=== PATIENT | male | born 1940 | race Caucasian/White ===

== ENCOUNTER → 2017-03-06 | Outpatient (CLI) | payer MEDICARE, OTHER | LOC: SP 08:47 | PROVIDERS: ATTEND Family Medicine | DX: I65.01 Occlusion and stenosis of right vertebral artery (principal) | CPT/HCPCS: 93880 ==

== ENCOUNTER → 2017-10-01 | Outpatient (CLI) | payer MEDICARE, OTHER ==
--- NOTE | 2017-10-01 10:12 | RADIOLOGY REPORT (SQ) ---
EXAM DESCRIPTION: CT HEAD WITHOUT COMPLETED DATE/TIME: 10/01/2017 7:55 am REASON FOR STUDY: HEAD INJURY (S09.90XA) S09.90XA UNSPECIFIED INJURY OF HEAD, INITIAL ENCOUNTER COMPARISON: None. TECHNIQUE: Axial images acquired through the brain without intravenous contrast. Images reviewed wi th bone, brain and subdural windows. Images stored on PACS. All CT scanners at this facility use dose modulation, iterative reconstruction, and/or weight based d osing when appropriate to reduce radiation dose to as low as reasonably achievable (ALARA). [facility]: Dose Right [facility]: CareDose [facility]: Dose Right [facility]: Teradose 4D [facility]: Smart Yasound RADIATION DOSE: Up-to-date CT equipment and radiation dose reduction techniques were employed. CTDIv ol: 64.6 mGy. DLP: 1163 mGy-cm.mGy. LIMITATIONS: None. FINDINGS: VENTRICLES: Prominent. CEREBRUM: No masses. No hemorrhage. No midline shift. Areas of low density in the white matter mos t likely due to chronic micro-vascular ischemic change. No evidence for acute infarction. CEREBELLUM: No masses. No hemorrhage. No alteration of density. No evidence for acute infarction. EXTRAAXIAL SPACES: Age-related involutional change. No fluid collections. No masses. ORBITS AND GLOBE: No intra- or extraconal masses. Normal contour of globe without masses. CALVARIUM: No fracture. PARANASAL SINUSES: No fluid or mucosal thickening. SOFT TISSUES: No mass or hematoma. OTHER: No other significant finding. IMPRESSION: CHRONIC CHANGES OF ATROPHY AND MICROVASCULAR ISCHEMIA. NO ACUTE PROCESS. EVIDENCE OF ACUTE STROKE: NO. TECHNICAL DOCUMENTATION: JOB ID: [id number] Quality ID # [id number]: Final reports with documentation of one or more dose reduction techniques (e.g., Au tomated exposure control, adjustment of the mA and/or kV according to patient size, use of iterative reconstruction technique) 2010 [employer]- All Rights Reserved
== END ==
LOC: RAD 06:59
PROVIDERS: ATTEND Family Medicine
DX: S09.90XA Unspecified injury of head, initial encounter (principal); X58.XXXA Exposure to other specified factors, initial encounter
CPT/HCPCS: 70450

== ENCOUNTER → 2017-10-01 | Outpatient (CLI) | payer MEDICARE, OTHER ==
--- NOTE | 2017-10-01 11:26 | RADIOLOGY REPORT (SQ) ---
EXAM DESCRIPTION: C SP 4 OR 5 VIEWS COMPLETED DATE/TIME: 10/01/2017 9:18 am REASON FOR STUDY: LOW BACK PAIN,CERVICALGIA,PAIN IN THORACIC SPINE R07.81 PLEURODYNIA M54.5 LOW BA CK PAIN M54.2 CERVICALGIA COMPARISON: None. NUMBER OF VIEWS: Five views including obliques. TECHNIQUE: AP, lateral, obliques and odontoid radiographic images acquired of the cervical spine. LIMITATIONS: None. FINDINGS: MINERALIZATION: Normal. SEGMENTATION: Normal. ALIGNMENT: Reversal of the lordotic curve. VERTEBRAE: Maintained height. No fracture or worrisome bone lesion. DISCS: Multilevel disc space narrowing with osteophytes. POSTERIOR ELEMENTS: Pedicles and facets are intact. No posterior arch defects. Facet arthropathy is present. FORAMINA: Narrowed at the levels of maximal disc and facet disease. HARDWARE: None in the spine. PARASPINAL SOFT TISSUES: Normal. OTHER: No other significant finding. IMPRESSION: Cervical disc disease. No acute findings. TECHNICAL DOCUMENTATION: JOB ID: [id number] [employer]- All Rights Reserved
--- NOTE | 2017-10-01 11:28 | RADIOLOGY REPORT (SQ) ---
EXAM DESCRIPTION: T SPINE AP/LAT COMPLETED DATE/TIME: 10/01/2017 9:18 am REASON FOR STUDY: LOW BACK PAIN,CERVICALGIA,PAIN IN THORACIC SPINE R07.81 PLEURODYNIA M54.5 LOW BA CK PAIN M54.2 CERVICALGIA COMPARISON: None. NUMBER OF VIEWS: Two views. TECHNIQUE: AP and lateral radiographic images acquired of the thoracic spine. LIMITATIONS: None. FINDINGS: MINERALIZATION: Normal. ALIGNMENT: Mild scoliosis. VERTEBRAE: Mild height loss superior endplate T11 approximately 20%. DISCS: No significant loss of height or significant narrowing. No large osteophytes. HARDWARE: None in the spine. MEDIASTINUM AND SOFT TISSUES: Normal heart size and aortic contour. No soft tissue abnormality. VISUALIZED LUNG PATE: Clear. OTHER: No other significant finding. IMPRESSION: Compression fracture T11 of uncertain chronicity. TECHNICAL DOCUMENTATION: JOB ID: [id number] [employer] All Rights Reserved
--- NOTE | 2017-10-01 11:29 | RADIOLOGY REPORT (SQ) ---
EXAM DESCRIPTION: LUMBAR SPINE COMPLETE COMPLETED DATE/TIME: 10/01/2017 9:18 am REASON FOR STUDY: LOW BACK PAIN,CERVICALGIA,PAIN IN THORACIC SPINE R07.81 PLEURODYNIA M54.5 LOW BA CK PAIN M54.2 CERVICALGIA COMPARISON: MR 03/09/2014 NUMBER OF VIEWS: Five views including obliques. TECHNIQUE: AP, lateral, oblique, and sacral radiographic images acquired of the lumbar spine. LIMITATIONS: None. FINDINGS: MINERALIZATION: Normal. SEGMENTATION: Normal. No transitional anatomy. ALIGNMENT: Dextroscoliosis at L3. VERTEBRAE: Maintained height. No fracture or worrisome bone lesion. DISCS: Disc spaces are narrowed in the lumbar spine. This is most prominent at L3-4 on the left. Th ere are bridging osteophytes in prominent marginal osteophytes. POSTERIOR ELEMENTS: Pedicles and facets are intact. No pars defect or posterior arch defects. HARDWARE: None in the spine. PARASPINAL SOFT TISSUES: Normal. PELVIS: Intact as visualized. No fractures or worrisome bone lesions. SI joints intact. OTHER: No other significant finding. IMPRESSION: Scoliosis, multilevel degenerative disc disease and spondylosis. No acute abnormality i s seen. TECHNICAL DOCUMENTATION: JOB ID: [id number] [employer]- All Rights Reserved
--- NOTE | 2017-10-01 11:30 | RADIOLOGY REPORT (SQ) ---
EXAM DESCRIPTION: RIBS BILATERAL W/PA CHEST COMPLETED DATE/TIME: 10/01/2017 9:18 am REASON FOR STUDY: PLEURODYNIA R07.81 PLEURODYNIA M54.5 LOW BACK PAIN M54.2 CERVICALGIA COMPARISON: None. NUMBER OF VIEWS: 8 views TECHNIQUE: Images acquired of the right and left ribs in the area of focal concern. LIMITATIONS: None. FINDINGS: RIBS: No acute displaced fracture. No worrisome bone lesions. LUNGS: Apical pleural thickening. No contusion or pneumothorax. No pleural effusion. OTHER: No other significant finding. IMPRESSION: NO ACUTE DISPLACED RIB FRACTURE. COMMENT: SITE OF TRAUMA/COMPLAINT MARKED/STAMP COMPLETED: YES. TECHNICAL DOCUMENTATION: JOB ID: [id number] [employer]- All Rights Reserved
== END ==
LOC: OD 07:53
PROVIDERS: ATTEND Family Medicine
DX: R07.81 Pleurodynia (principal); M54.5 Low back pain; M54.2 Cervicalgia; M54.6 Pain in thoracic spine; M51.36 Other intervertebral disc degeneration, lumbar region; M48.54XD Collapsed vertebra, not elsewhere classified, thoracic region, subsequent encounter for fracture with routine healing; M50.80 Other cervical disc disorders, unspecified cervical region
CPT/HCPCS: 71111; 72050; 72070; 72110

== ENCOUNTER 2017-10-17 14:33 | Inpatient (IN) | payer MEDICARE, OTHER ==
[2017-10-17] MEDS ORDERED: DILTIAZEM HCL INJ 25 MG/5 ML VIAL ONE (15:07)
[2017-10-17] MEDS ORDERED: NORMAL SALINE 1000 ML 1,000 ML IV PRN (15:32)
[2017-10-17] MEDS ORDERED: DILTIAZEM HCL/D5W 125 ML IV PRN (15:32)
[2017-10-17] MEDS ORDERED: ASPIRIN 81 MG TABLET, CHEWABLE PO ONE (15:33)
--- NOTE | 2017-10-17 15:37 | ER Document Report ---
ED General - General Chief Complaint: Irregular Pulse Stated Complaint: IRREGULAR HEART BEAT Time Seen by Provider: 10/17/17 15:31 Mode of Arrival: Ambulatory Information source: Patient Notes: This is a 77-year-old man with a history of an "irregular heartbeat", esophageal webs (status post dilatation in the past), who presents to the emergency room with palpitations. The patient's states that she thinks the esophageal web is coming back because he has had difficulty swallowing solids and has not been able to take his pills for the last several days. TRAVEL OUTSIDE OF THE [place] IN LAST 30 DAYS: No - HPI Onset: Just prior to arrival Onset/Duration: Gradual Quality of pain: No pain Severity: None Pain Level: Denies Associated symptoms: denies: Chills, Fever Exacerbated by: Denies Relieved by: Denies Similar symptoms previously: Yes Recently seen / treated by doctor: Yes - Related Data Allergies/Adverse Reactions: cyclobenzaprine HCl [From Flexeril] Allergy (Intermediate, Verified 05/06/15 08: 05) Hallucinations oxycodone HCl [From Percocet] Allergy (Intermediate, Verified 05/06/15 08:05) Hallucinations hydrocodone bitartrate [From Vicodin] Adverse Reaction (Severe, Verified 08:05) Hallucinations Home Medications: Current Home Medications Clopidogrel Bisulfate [Clopidogrel] 75 mg PO 10/17/17 [History] Finasteride [Proscar 5 mg Tablet] 5 mg PO 10/17/17 [History] Latanoprost [Xalatan] 10/17/17 [History] Magnesium Oxide [Magnesium] 400 mg PO 10/17/17 [History] Metoprolol Succinate [Toprol Xl 50 mg Tab.sr] 50 mg PO 10/17/17 [History] Pantoprazole Sodium [Protonix] 40 mg PO 10/17/17 [History] Prazosin HCl [Minipress] 1 mg PO 10/17/17 [History] Tramadol HCl [Ultram 50 mg Tablet] 50 mg PO 10/17/17 [History] Trazodone HCl [Desyrel] 100 mg PO 10/17/17 [History] Valsartan [Diovan 160 mg Tablet] 160 mg PO 10/17/17 [History] Past Medical History - General Information source: Patient - Social History Smoking Status: Never Smoker Cigarette use (# per day): No Chew tobacco use (# tins/day): No Frequency of alcohol use: None Drug Abuse: None Lives with: Spouse/Significant other Family History: None Patient has suicidal ideation: No Patient has homicidal ideation: No - Past Medical History Cardiac Medical History: Reports: Hx Hypercholesterolemia, Hx Hypertension Denies: Hx Coronary Artery Disease, Hx Heart Attack Pulmonary Medical History: Denies: Hx Asthma, Hx Bronchitis, Hx COPD, Hx Pneumonia Neurological Medical History: Denies: Hx Cerebrovascular Accident, Hx Seizures Renal/ Medical History: Reports: Hx Benign Prostatic Hyperplasia GI Medical History: Reports: Hx Gastroesophageal Reflux Disease Musculoskeltal Medical History: Reports Hx Arthritis Past Surgical History: Reports: Hx Orthopedic Surgery - Left Achilles tendon repair. Denies: Hx Pacemaker - Immunizations Hx Diphtheria, Pertussis, Tetanus Vaccination: Yes Hx Pneumococcal Vaccination: 07/20/12 Review of Systems - Review of Systems Constitutional: denies: Chills, Fever EENT: No symptoms reported Cardiovascular: See HPI Respiratory: No symptoms reported Gastrointestinal: See HPI Genitourinary: No symptoms reported Male Genitourinary: No symptoms reported Musculoskeletal: No symptoms reported Skin: No symptoms reported Hematologic/Lymphatic: No symptoms reported Neurological/Psychological: No symptoms reported Physical Exam - Vital signs Vitals: Temp Pulse Resp BP Pulse Ox 97.6 F 167 H 18 113/96 H 100 10/17/17 14:59 10/17/17 14:59 10/17/17 14:59 10/17/17 14:59 10/17/17 14:59 Notes: Physical exam: GENERAL: 87-year-old man, alert and oriented 3, no acute distress. HEAD: Atraumatic, normocephalic. EYES: Pupils equal round and reactive to light, extraocular movements intact, sclera anicteric, conjunctiva are normal. ENT: TMs normal, nares patent, oropharynx clear without exudates. Moist mucous membranes. NECK: Normal range of motion, supple without obvious mass or JVD. LUNGS: Breath sounds clear to auscultation bilaterally and equal. No wheezes rales or rhonchi. HEART: Irregularly irregular with a heart rate of 150 ABDOMEN: Soft, normoactive bowel sounds. No tenderness to palpation. No guarding, no rebound. No masses appreciated. EXTREMITIES: Normal range of motion, no pitting or edema. No clubbing or cyanosis. NEUROLOGICAL: Cranial nerves II through XII grossly intact. Normal speech, moving all extremities. PSYCH: Normal mood, normal affect. SKIN: Warm, Dry, normal turgor, no rashes or lesions noted. Course - Re-evaluation Re-evalutation: 10/17/17 16:53 I discussed case with Dr. Humphries who was to see the patient tomorrow the patient does have a history of esophageal webs and feels like the web is been coming back. He has not taken his medicines for the last several days because he is afraid the pills will get stuck. As a result, he presented with hypomagnesemia , hyponatremia (secondary to volume depletion), atrial fibrillation with a rapid ventricular rate. Patient has been treated with IV fluids, IV rate control with metoprolol, IV magnesium. I discussed the case with Dr. Acosta who is willing to consult the patient while in the hospital. Patient will be admitted to the hospitalist service. - Vital Signs Vital signs: Temp Pulse Resp BP Pulse Ox 98.6 F 96 20 133/72 H 99 10/17/17 22:34 10/17/17 22:34 10/17/17 22:34 10/17/17 22:34 10/17/17 22:34 - Laboratory Result Diagrams: 10/17/17 15:35 10/17/17 15:35 Laboratory results interpreted by me: 10/17/17 10/17/17 15:35 15:35 WBC 17.2 H RBC 4.20 L Seg Neutrophils % 82.8 H Lymphocytes % 9.5 L Absolute Neutrophils 14.3 H Sodium 128.0 L Chloride 91 L Magnesium 1.5 L Total Bilirubin 1.4 H Direct Bilirubin 0.6 H ALT 19 L Creatine Kinase 23 L - Diagnostic Test Radiology reviewed: Image reviewed, Reports reviewed - Chest x-ray shows no infiltrates or effusions - EKG Interpretation by Me Rhythm: A.Fib - EKG shows atrial fibrillation with a ventricular rate of 154, no acute ST-T wave changes Critical Care Note - Critical Care Note Total time excluding time spent on procedures (mins): 60 Discharge - Discharge Clinical Impression: A. fib with rapid ventricular rate, Hyponatremia, Hypomagnesemia Dysphagia Qualifiers: Dysphagia type: esophageal phase Qualified Code(s): R13.10 - Dysphagia, unspecified Condition: Stable Disposition: ADMITTED INPATIENT Admitting Provider: Hospitalist - Dr Arreguin Unit Admitted: IMCU
[2017-10-17 15:50] LABS: ABSOLUTE LYMPHOCYTES (AUTO) 1.6 10^3/uL (0.5-4.7); ABSOLUTE MONOCYTES (AUTO) 1.3 10^3/uL (0.1-1.4); ABSOLUTE NEUT (AUTO) 14.3 10^3/uL (1.7-8.2); BASOPHILS % (AUTO) 0.3 % (0-2); EOSINOPHILS % (AUTO) 0.1 % (0-6); HEMATOCRIT 38.7 % (37.9-51.0); HEMOGLOBIN 13.7 g/dL (13.5-17.0); HGB HCT DIFFERENCE 2.4; LYMPHOCYTES % (AUTO) 9.5 % (13-45); MEAN CORPUSCULAR HEMOGLOBIN 32.7 pg (27.0-33.4); MEAN CORPUSCULAR HGB CONC 35.5 g/dL (32.0-36.0); MEAN CORPUSCULAR VOLUME 92 fl (80-97); MONOCYTES % (AUTO) 7.3 % (3-13); RED CELL DISTRIBUTION WIDTH 12.5 % (11.5-14.0); SEGMENTED NEUTROPHILS % (AUTO) 82.8 % (42-78); WHITE BLOOD COUNT 17.2 10^3/uL (4.0-10.5)
[2017-10-17] MEDS ORDERED: METOPROLOL TARTRATE PF/INJ 5 MG/5 ML SDV IV ONE (15:55)
[2017-10-17 16:00] LABS: PROTHROMBIN TIME 13.1 SEC (11.4-15.4)
[2017-10-17] MEDS ORDERED: METOPROLOL TARTRATE PF/INJ 5 MG/5 ML SDV IV SCH (16:00)
[2017-10-17 16:10] LABS: ALANINE AMINOTRANSFERASE 19 U/L (21-72); ALBUMIN 3.6 g/dL (3.5-5.0); ALKALINE PHOSPHATASE 111 U/L (38-126); ANION GAP 12 (5-19); ASPARTATE AMINO TRANSFERASE 23 U/L (17-59); BILIRUBIN,DIRECT 0.6 mg/dL (0.0-0.4); BILIRUBIN,TOTAL 1.4 mg/dL (0.2-1.3); BLOOD UREA NITROGEN 12 mg/dL (7-20); CALCIUM 9.8 mg/dL (8.4-10.2); CARBON DIOXIDE 25 mmol/L (22-30); CHLORIDE 91 mmol/L (98-107); CREATINE KINASE 23 U/L (55-170); CREATININE RESULT 0.78 mg/dL (0.52-1.25); GLUCOSE 107 mg/dL (75-110); MAGNESIUM 1.5 mg/dL (1.6-2.3); POTASSIUM 4.2 mmol/L (3.6-5.0); TOTAL PROTEIN 6.8 g/dL (6.3-8.2)
[2017-10-17 16:23] LABS: TROPONIN I < 0.012 ng/mL
--- NOTE | 2017-10-17 16:29 | RADIOLOGY REPORT (SQ) ---
EXAM DESCRIPTION: CHEST SINGLE VIEW COMPLETED DATE/TIME: 10/17/2017 4:16 pm REASON FOR STUDY: palpitations COMPARISON: None. EXAM PARAMETERS: NUMBER OF VIEWS: One view. TECHNIQUE: Single frontal radiographic view of the chest acquired. RADIATION DOSE: NA LIMITATIONS: None. FINDINGS: LUNGS AND PLEURA: No opacities, masses or pneumothorax. No pleural effusion. MEDIASTINUM AND HILAR STRUCTURES: No masses. Contour normal. HEART AND VASCULAR STRUCTURES: Heart normal in size. Normal vasculature. BONES: No acute findings. HARDWARE: None in the chest. OTHER: No other significant finding. IMPRESSION: NO ACUTE RADIOGRAPHIC FINDING IN THE CHEST. TECHNICAL DOCUMENTATION: JOB ID: [id number] [employer]- All Rights Reserved
[2017-10-17] MEDS ORDERED: IPRATROPIUM/ALBUTEROL 0.5-2.5 MG/3 ML AMPUL NEB PRN (17:44)
[2017-10-17] MEDS ORDERED: ONDANSETRON HCL INJ/PF 4 MG/2 ML SDV IV PRN (17:44)
[2017-10-17] MEDS ORDERED: GLUCAGON,HUMAN RECOMB 1 MG INJ SUBCUT PRN (17:44)
[2017-10-17] MEDS ORDERED: ACETAMINOPHEN 650 MG SUPP.RECT PR PRN (17:44)
[2017-10-17] MEDS ORDERED: DEXTROSE 50%-WATER 25 GM/50 ML DISP.SYRIN IV PRN ×2 (17:44)
[2017-10-17] MEDS ORDERED: DEXTROSE 40% GEL 15 GM TUBE PO PRN ×2 (17:44)
[2017-10-17] MEDS: MAGNESIUM SULFATE/D5W 1 GM/100 ML RTUPB IV SCH ×2 (17:45→20:03)
--- NOTE | 2017-10-17 18:12 | PDOC H&P ---
History of Present Illness Admission Date/PCP: 10/17/17 17:32 JEROME WICK DO History of Present Illness: ADAM ZELAYA is a 77 year old white male with a past medical history of chronic atrial fibrillation, history of esophageal web status post dilation in the past, hypertension and dyslipidemia who presents to the service with complaints of palpitations. According to the patient and his , he has a history of esophageal webs. He was due to see Dr. Humphries tomorrow afternoon for another dilation. The patient presented to his primary care physician, Dr. Wick. At that time he was found to be tachycardic. He was sent over to the hospital and found to have a rate of 154 on arrival. The patient states that he is not been able to take any of his home medications because of choking with swallowing. The patient chokes with both liquids and solids and has not been drinking very well either. In the emergency room he was found to have a low sodium of 128. He was tachycardic up to 154. He was given a dose of IV metoprolol. At home he usually takes metoprolol as for rate control. Her pulse rate came down to a range between 90-120. The patient admits to feelings of palpitations during activity. He denies any chest pain, shortness of breath , nausea or vomiting. He is anxious to have his procedure tomorrow so that he can get back on track. Past Medical History Cardiac Medical History: Reports: Hyperlipidema, Hypertension EENT Medical History: Reports: Other - Glaucoma in the right eye GI Medical History: Reports: Gastroesophageal Reflux Disease, Other - Esophageal web status post dilation Musculoskeltal Medical History: Reports: Arthritis Hematology: Denies: Anemia Past Surgical History Past Surgical History: Reports: Orthopedic Surgery - Left Achilles tendon repair. Status post bilateral ankle fractures. Social History Information Source: Patient, Relative Lives with: Spouse/Significant other Smoking Status: Former Smoker Number of Years Smokin Last Time Smoked: 1985 Frequency of Alcohol Use: Occasional - Patient consumes 1-2 wine nightly with meals. Hx Recreational Drug Use: No Drugs: None Hx Prescription Drug Abuse: No - Advance Directive Resuscitation Status: Do Not Resuscitate Family History Family History: None Parental Family History Reviewed: Yes - His mother on the operating table during a cholecystectomy. Children Family History Reviewed: Yes Sibling(s) Family History Reviewed.: Unknown - Patient is estranged from his family Medication/Allergy Home Medications: Metoprolol Succinate [Toprol Xl 50 mg Tab.sr] 50 mg PO DAILY 05/28/12 Valsartan [Diovan 160 mg Tablet] 160 mg PO DAILY 05/28/12 Esomeprazole Magnesium [Nexium] 40 mg PO DAILY 05/18/14 Prazosin HCl 1 mg PO QHS 03/09/15 Trazodone HCl [Desyrel 50 mg Tablet] 50 mg PO QHS 03/09/15 Cholestyramine (with Sugar) [Cholestyramine Packet] 4 gm PO DAILY 09/12/16 Finasteride [Proscar 5 mg Tablet] 5 mg PO DAILY 09/12/16 B1/B2/B3/B5/B6/Iron/Meth/Choln [Geritol Tonic] 15 ml PO DAILY 09/17/16 Cyanocobalamin (Vitamin B-12) [Vitamin B-12 1000 mcg Tablet] 1 tab PO DAILY Latanoprost [Xalatan 0.005% Oph Soln 2.5 ml] 1 drop OS QHS 09/17/16 Magnesium 400 mg PO BID 09/17/16 Aspirin/Dipyridamole [Aggrenox 25 mg/200 mg Capsule SA] 1 cap.sr PO Q12 cpmp.12hr 09/18/16 Docusate Sodium [Colace 100 mg Capsule] 100 mg PO BID capsule 09/18/16 Enoxaparin Sodium [Lovenox Inj 40 mg/0.4 ml Disp.syrin] 40 mg SUBCUT QAM disp.syrin 09/18/16 Meloxicam [Mobic 7.5 Mg Tablet] 7.5 mg PO DAILY PRN #30 tablet 09/18/16 Allergies/Adverse Reactions: cyclobenzaprine HCl [From Flexeril] Allergy (Intermediate, Verified 05/06/15 08: 05) Hallucinations oxycodone HCl [From Percocet] Allergy (Intermediate, Verified 05/06/15 08:05) Hallucinations hydrocodone bitartrate [From Vicodin] Adverse Reaction (Severe, Verified 08:05) Hallucinations Review of Systems Review of Systems: Review of systems is pertinent as per the HPI. 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 He has blindness of the right eye. He has had both diarrhea and constipation over the last week. He has generalized arthritis. He feels as though he has lost 30 pounds over the last 6 months and admits to a decreased appetite. He denies any abdominal pain, dizziness, lightheadedness, blood in the stool, blood in urine, coughing up blood, throwing up blood. Physical Exam Vital Signs: Temp Pulse Resp BP Pulse Ox 97.6 F 167 H 18 123/79 100 10/17/17 14:59 10/17/17 14:59 10/17/17 16:41 10/17/17 16:41 10/17/17 16:41 GENERAL: Well-developed, under nourished elderly white male resting in bed currently in no acute distress. HEENT: Normocephalic. Atraumatic. Trachea is midline. Sclera are anicteric. Moist mucous membranes. HEART: Irregular rate and rhythm. 1 out of 6 systolic ejection murmur. No gallops or rubs. LUNGS: Clear to auscultation bilaterally with equal rise and fall of the chest. ABDOMEN: Soft, nontender, nondistended with normoactive bowel sounds EXTREMETIES: No clubbing, cyanosis or edema. 2+ peripheral pulses bilaterally. Strength is 5 out of 5 in both the upper and lower extremities bilaterally. NEURO: Awake, alert and oriented 3. Ptosis of the right eye. Otherwise, cranial nerves are specifically intact. Results Impressions: Chest X-Ray 10/17/17 15:33 IMPRESSION: NO ACUTE RADIOGRAPHIC FINDING IN THE CHEST. Assessment & Plan - Diagnosis (1) Atrial fibrillation with RVR Plan: Proceed with scheduled IV metoprolol for rate control. The patient is usually rate controlled with metoprolol at home. He is also usually on valsartan for blood pressure control. Until his swallowing is evaluated by GI, we will continue with an IV regimen. Maintain heart rate less than or equal to 110 bpm. (2) Esophageal web Plan: Dr. Stoddard is aware of the patient's admission. If his heart rate is under reasonable control, he can likely proceed with dilation tomorrow. Will defer anticoagulation in anticipation of procedure tomorrow. Maintain n.p.o. status. (3) Glaucoma Qualifiers: Glaucoma type: unspecified Laterality: right Qualified Code(s): H40.9 - Unspecified glaucoma Is this a current diagnosis for this admission?: Yes Plan: Continue latanoprost. (4) Chronic back pain Plan: Patient has had multiple previous back surgeries. (5) Malnutrition Plan: Patient's BMI is 19. He has decreased appetite and estimates a 30 pound weight loss over the last 6 months. He does have some dysphasia and esophageal webs that need dilation. However, I do have concerns with such a fair amount of weight loss that the patient may have underlying malignancy. He will undergo upper endoscopy perhaps tomorrow. We will see if anything is found. Will consult dietary. (6) Dysphagia Qualifiers: Dysphagia type: esophageal phase Qualified Code(s): R13.10 - Dysphagia, unspecified Plan: Evaluation by GI is pending. If the patient continues to have dysphasia then we should consult speech therapy. N.p.o. status for now. (7) Hypertension Qualifiers: Hypertension type: essential hypertension Qualified Code(s): I10 - Essential (primary) hypertension Plan: IV metoprolol and Vasotec. (8) Hyponatremia Plan: Likely secondary to underlying dehydration from lack of p.o. intake. Continue IV fluids at 60 cc/h. (9) Hypomagnesemia Plan: Likely due to decreased p.o. Replace. - Time Time Spent: 50 to 70 Minutes Within: within 48 hours
[2017-10-17] MEDS: METOPROLOL TARTRATE PF/INJ 5 MG/5 ML SDV IV SCH (18:22)
[2017-10-17] MEDS: NORMAL SALINE 1000 ML 1,000 ML IV PRN (18:22)
[2017-10-17] MEDS: ENALAPRILAT DIHYDRATE INJ/PF 1.25 MG/1 ML SDV IV SCH (18:30)
[2017-10-18] MEDS: METOPROLOL TARTRATE PF/INJ 5 MG/5 ML SDV IV SCH ×5 (00:30→23:56)
[2017-10-18] MEDS: ENALAPRILAT DIHYDRATE INJ/PF 1.25 MG/1 ML SDV IV SCH ×3 (00:30→12:15)
[2017-10-18 05:26] LABS: ABSOLUTE BASOPHILS # (AUTO) 0.1 10^3/uL (0.0-0.2); ABSOLUTE EOSINOPHILS # (AUTO) 0.1 10^3/uL (0.0-0.6); ABSOLUTE LYMPHOCYTES (AUTO) 1.8 10^3/uL (0.5-4.7); ABSOLUTE MONOCYTES (AUTO) 1.2 10^3/uL (0.1-1.4); ABSOLUTE NEUT (AUTO) 12.5 10^3/uL (1.7-8.2); BASOPHILS % (AUTO) 0.5 % (0-2); EOSINOPHILS % (AUTO) 0.4 % (0-6); HEMATOCRIT 31.2 % (37.9-51.0); HGB HCT DIFFERENCE 2.7; LYMPHOCYTES % (AUTO) 11.3 % (13-45); MEAN CORPUSCULAR HGB CONC 36.1 g/dL (32.0-36.0); MEAN CORPUSCULAR VOLUME 91 fl (80-97); MONOCYTES % (AUTO) 7.5 % (3-13); RED BLOOD COUNT 3.42 10^6/uL (4.35-5.55); RED CELL DISTRIBUTION WIDTH 12.7 % (11.5-14.0); SEGMENTED NEUTROPHILS % (AUTO) 80.3 % (42-78); WHITE BLOOD COUNT 15.6 10^3/uL (4.0-10.5)
[2017-10-18 05:28] LABS: HEMOGLOBIN 11.3 g/dL (13.5-17.0)
[2017-10-18 05:44] LABS: ANION GAP 7 (5-19); BLOOD UREA NITROGEN 9 mg/dL (7-20); CALCIUM 8.9 mg/dL (8.4-10.2); CARBON DIOXIDE 23 mmol/L (22-30); CHLORIDE 99 mmol/L (98-107); GLUCOSE 79 mg/dL (75-110); POTASSIUM 4.7 mmol/L (3.6-5.0); SODIUM 129.3 mmol/L (137-145)
--- NOTE | 2017-10-18 07:50 | EKG REPORT ---
SEVERITY:- ABNORMAL ECG - ATRIAL FIBRILLATION WITH RAPID V-RATE ST DEPRESSION, PROBABLY RATE RELATED : Confirmed by: Ifeanyi Singletary MD 18-Oct-2017 07:50:08
[2017-10-18] MEDS: NORMAL SALINE 1000 ML 1,000 ML IV PRN ×2 (10:11→16:26)
[2017-10-18] MEDS ORDERED: NALOXONE HCL INJ/PF 0.4 MG/1 ML SDV ONE (13:51)
[2017-10-18] MEDS ORDERED: ONDANSETRON HCL INJ/PF 4 MG/2 ML SDV ONE (13:51)
[2017-10-18] MEDS ORDERED: DIPHENHYDRAMINE HCL 50 MG/ML VIAL ONE (13:51)
[2017-10-18] MEDS ORDERED: FENTANYL CITRATE INJ/PF 100 MCG/2 ML AMPUL ONE (13:52)
[2017-10-18] MEDS ORDERED: EPINEPHRINE INJ 1 MG/10 ML DISP.SYRIN ONE (13:52)
[2017-10-18] MEDS ORDERED: FLUMAZENIL INJ 0.5 MG/5 ML VIAL ONE (13:52)
[2017-10-18] MEDS ORDERED: GLUCAGON,HUMAN RECOMB 1 MG INJ ONE (13:53)
[2017-10-18] MEDS: MIDAZOLAM 2 MG/2 ML INJ ONE ×3 (14:19→14:25)
[2017-10-18] MEDS ORDERED: ONDANSETRON HCL INJ/PF 4 MG/2 ML SDV IV PRN (15:00)
[2017-10-18] MEDS ORDERED: DOCUSATE SODIUM 100 MG CAPSULE PO PRN (16:36)
--- NOTE | 2017-10-18 16:39 | PDOC PROGRESS REPORT ---
Subjective Progress Note for:: 10/18/17 Subjective:: per Dr Rosenberg summary: "ADAM ZELAYA is a 77 year old white male with a past medical history of chronic atrial fibrillation, history of esophageal web status post dilation in the past, hypertension and dyslipidemia who presents to the service with complaints of palpitations. According to the patient and his , he has a history of esophageal webs. He was due to see Dr. Humphries tomorrow afternoon for another dilation. The patient presented to his primary care physician, Dr. Wick. At that time he was found to be tachycardic. He was sent over to the hospital and found to have a rate of 154 on arrival. The patient states that he is not been able to take any of his home medications because of choking with swallowing. The patient chokes with both liquids and solids and has not been drinking very well either. In the emergency room he was found to have a low sodium of 128. He was tachycardic up to 154. He was given a dose of IV metoprolol. At home he usually takes metoprolol as for rate control. Her pulse rate came down to a range between 90-120. The patient admits to feelings of palpitations during activity. He denies any chest pain, shortness of breath, nausea or vomiting. He is anxious to have his procedure tomorrow so that he can get back on track." He converted to NSR overnight with use of IV metoprolol and overall he is feeling better. His daughter now reports that he is in a steady state of decline for the last few months with frequent falls, increasing short term memory loss, steady weight loss and she is worried there might something more sinister at work here. I asked if they had reported any of this to his PCP and apparently they have but "nothing's been found yet" and they were hoping I could offer something new. He reports no difficulty with his secretions though he continues to clear his throat and occasional cough. He is not wheezing or having difficulty breathing. He denies chest pain, palpitations, fever, chills, nausea, vomiting , headache, numbness or tingling. ROS: All systems reviewed, see above, remaining systems negative. Reason For Visit: AFIB WITH RVR; ESOPHAGEAL WEBS; DYSPHASIA Physical Exam Vital Signs: Temp Pulse Resp BP Pulse Ox 98.7 F 75 20 120/56 L 94 10/18/17 15:38 10/18/17 15:38 10/18/17 15:38 10/18/17 15:38 10/18/17 15:38 Intake & Output 10/17/17 10/18/17 10/19/17 06:59 06:59 06:59 Intake Total 782 200 Output Total 275 Balance 507 200 Weight 54.8 kg General appearance: PRESENT: no acute distress, thin, well-developed Head exam: PRESENT: atraumatic Eye exam: PRESENT: EOMI, PERRLA. ABSENT: scleral icterus Mouth exam: PRESENT: moist, neck supple Neck exam: PRESENT: full ROM. ABSENT: lymphadenopathy, tracheal deviation Respiratory exam: PRESENT: clear to auscultation cally, unlabored. ABSENT: accessory muscle use Cardiovascular exam: PRESENT: RRR. ABSENT: systolic murmur, tachycardia Pulses: PRESENT: normal radial pulses GI/Abdominal exam: PRESENT: normal bowel sounds, soft. ABSENT: tenderness Extremities exam: ABSENT: calf tenderness, pedal edema Musculoskeletal exam: PRESENT: ambulatory, full ROM Neurological exam: PRESENT: alert, awake, oriented to person, oriented to place , oriented to time, oriented to situation. ABSENT: aphasic Psychiatric exam: PRESENT: appropriate affect, normal mood Skin exam: PRESENT: warm Results Laboratory Results: 10/18/17 04:36 10/18/17 04:36 10/18/17 10/18/17 04:36 04:36 WBC 15.6 H RBC 3.42 L Hgb 11.3 L D Hct 31.2 L MCV 91 MCH 33.0 MCHC 36.1 H RDW 12.7 Plt Count 229 Seg Neutrophils % 80.3 H Lymphocytes % 11.3 L Monocytes % 7.5 Eosinophils % 0.4 Basophils % 0.5 Absolute Neutrophils 12.5 H Absolute Lymphocytes 1.8 Absolute Monocytes 1.2 Absolute Eosinophils 0.1 Absolute Basophils 0.1 Sodium 129.3 L Potassium 4.7 Chloride 99 Carbon Dioxide 23 Anion Gap 7 BUN 9 Creatinine 0.70 Est GFR ( Amer) > 60 Est GFR (Non-Af Amer) > 60 Glucose 79 Calcium 8.9 Magnesium 2.0 10/17/17 20:25 Troponin I 0.016 Impressions: Chest X-Ray 10/17/17 15:33 IMPRESSION: NO ACUTE RADIOGRAPHIC FINDING IN THE CHEST. Status: Imported from PACS Assessment & Plan - Diagnosis (1) Atrial fibrillation with RVR Is this a current diagnosis for this admission?: Yes Plan: Likely secondary to decreased oral intake including cessation of his usual medications. He converted with IV metoprolol. Will resume his usual home regimen once his esophageal dilatation is completed and is cleared for oral intake by gastroenterology. (2) Dysphagia Qualifiers: Dysphagia type: esophageal phase Qualified Code(s): R13.10 - Dysphagia, unspecified Is this a current diagnosis for this admission?: Yes Plan: Secondary to esophageal webs. Scheduled for EGD with dilatation today. (3) Hypomagnesemia Is this a current diagnosis for this admission?: Yes Plan: Replace and monitor. (4) Frequent falls Is this a current diagnosis for this admission?: Yes Plan: Unclear etiology, acutely most likely related to decreased oral intake and poor nutrition. It has been over a year since her thyroid studies have been completed and I do not see a B12 level so we will add Zosyn to finish the metabolic evaluation. His family were recommended to follow-up with his primary care provider for additional evaluation once we get his nutritional situation addressed. Start PT (5) Hyponatremia Is this a current diagnosis for this admission?: Yes Plan: The family reports this is an intermittent recurrent chronic problem for him dating back many years. Etiology is unclear. Do not think this is acutely contributing to his symptoms and is compounded by his lack of oral intake. Continue normal saline and repeat labs in the morning. Defer to his PCP for ongoing outpatient evaluation. - Time Time Spent with patient: 25-34 minutes Medications reviewed and adjusted accordingly: Yes
--- NOTE | 2017-10-18 16:50 | Operative Report ---
Operative Report DATE OF SURGERY: 10/18/17 Operative Report: The risks benefits and alternatives of the procedure explained to the patient in detail and informed consent is obtained.A GIF Olympus video scope was inserted into the patient's mouth and hypopharynx ,the esophagus is identified intubated and insufflated, the scope was then advanced through the esophagus stomach and duodenum, retroflexion maneuver is done, the esophagus stomach and first and second portions of the duodenum examined PREOPERATIVE DIAGNOSIS: Dysphagia, previous history of esophageal webs POSTOPERATIVE DIAGNOSIS: There appears to be a mass lesion in the midesophagus status post biopsy. Scope was able to pass no complete obstruction is noted. Biopsies obtained. Gastritis status post biopsy OPERATION: EGD with biopsy SURGEON: ROB HILLS ANESTHESIA: Moderate Sedation - 5 mg of Versed, 50 mcg of fentanyl. Conscious sedation monitoring time 30 minutes. TISSUE REMOVED OR ALTERED: As noted above. COMPLICATIONS: None. ESTIMATED BLOOD LOSS: None. INTRAOPERATIVE FINDINGS: As described above. PROCEDURE: Patient tolerated procedure well. No immediate postprocedure complications are noted. Patient sent back to his room in reasonable condition. Keep on clears. Do not advance diet. We will wait on biopsies. If malignancy will get him on consultation. Question if he will need stent placement/possible PEG tube placement which needs to be done at a tertiary institution. We will get chest CT scan.
--- NOTE | 2017-10-18 16:56 | PDOC CONSULTATION ---
Consultation Consult Date: 10/17/17 Attending physician:: ROB HILLS Consult reason:: Dysphagia History of Present Illness Admission Date/PCP: 10/17/17 17:32 JEROME MCKEON DO History of Present Illness: Patient was seen approximately 2 years ago. Patient had previous EGD done. He does have a history of esophageal webs. Was speaking to the and the daughter it appears that patient started having significant problems with swallowing is accompanied by weight loss for the past several months. He had communicated to the that he wanted to wait before being evaluated. Patient has had a chronic cough. He sustained significant weight loss. Several days ago he stopped all of his oral medications because he could no longer swallow. notes that perhaps 6 months ago he had started to have progressive solid food dysphagia which has since been progressing to liquids and then pills. He is also sustained weight loss as noted. He was seen at his primary care office yesterday. He was found to be in uncontrolled A. fib he was sent to the emergency room he was admitted he has been rate controlled. He needs to have an upper endoscopy done. Past Medical History Cardiac Medical History: Reports: Hyperlipidema, Hypertension Denies: Coronary Artery Disease, Myocardial Infarction Pulmonary Medical History: Denies: Asthma, Bronchitis, Chronic Obstructive Pulmonary Disease (COPD), Pneumonia EENT Medical History: Reports: Other - Glaucoma in the right eye Neurological Medical History: Denies: Seizures GI Medical History: Reports: Gastroesophageal Reflux Disease, Other - Esophageal web status post dilation Musculoskeltal Medical History: Reports: Arthritis Hematology: Reports: Other - Glaucoma in the right eye Denies: Anemia Past Surgical History Past Surgical History: Reports: Orthopedic Surgery - Left Achilles tendon repair Denies: Pacemaker Social History Lives with: Spouse/Significant other Smoking Status: Never Smoker Number of Years Smokin Last Time Smoked: 1985 Frequency of Alcohol Use: Occasional Hx Recreational Drug Use: No Drugs: None Hx Prescription Drug Abuse: No - Advance Directive Resuscitation Status: Do Not Resuscitate Family History Family History: None Parental Family History Reviewed: Yes Children Family History Reviewed: Unknown Sibling(s) Family History Reviewed.: Unknown Medication/Allergy Home Medications: Aspirin [Aspirin EC] 81 mg PO DAILY 10/18/17 Clopidogrel Bisulfate [Plavix 75 mg Tablet] 75 mg PO DAILY 10/18/17 Cyanocobalamin (Vitamin B-12) [Vitamin B-12] 1,000 mcg PO DAILY 10/18/17 Docusate Sodium [Colace 100 mg Capsule] 100 mg PO DAILYP PRN 10/18/17 Finasteride [Proscar 5 mg Tablet] 5 mg PO DAILY 10/18/17 Magnesium Oxide [Mag-Ox 400 mg Tablet] 800 mg PO DAILY 10/18/17 Metoprolol Succinate [Toprol Xl 50 mg Tab.sr] 50 mg PO DAILY 10/18/17 Pantoprazole Sodium [Protonix] 40 mg PO DAILY 10/18/17 Prazosin HCl [Minipress] 1 mg PO QHS 10/18/17 Tramadol HCl [Ultram 50 mg Tablet] 50 mg PO DAILY 10/18/17 Trazodone HCl [Desyrel] 100 mg PO QHS 10/18/17 Valsartan [Diovan 160 mg Tablet] 160 mg PO DAILY 10/18/17 Allergies/Adverse Reactions: cyclobenzaprine HCl [From Flexeril] Allergy (Intermediate, Verified 05/06/15 08: 05) Hallucinations oxycodone HCl [From Percocet] Allergy (Intermediate, Verified 05/06/15 08:05) Hallucinations hydrocodone bitartrate [From Vicodin] Adverse Reaction (Severe, Verified 08:05) Hallucinations Review of Systems Constitutional: PRESENT: weakness, weight loss Eyes: ABSENT: visual disturbances Ears: ABSENT: hearing changes Nose, Mouth, and Throat: ABSENT: mouth pain, sore throat Cardiovascular: PRESENT: palpitations. ABSENT: chest pain, orthropnea Respiratory: PRESENT: dyspnea. ABSENT: hemoptysis Gastrointestinal: PRESENT: dysphagia, nausea, vomiting. ABSENT: diarrhea, hematemesis Genitourinary: ABSENT: dysuria, hematuria Musculoskeletal: ABSENT: deformity, joint swelling Integumentary: ABSENT: lesions Neurological: ABSENT: syncope, tingling, tremor(s), vertigo Endocrine: ABSENT: polydipsia, polyphagia, polyuria Hematologic/Lymphatic: ABSENT: easy bruising Physical Exam Vital Signs: Temp Pulse Resp BP Pulse Ox 98.7 F 75 20 120/56 L 94 10/18/17 15:38 10/18/17 15:38 10/18/17 15:38 10/18/17 15:38 10/18/17 15:38 Intake & Output 11/29/17 11/30/17 12/01/17 06:59 06:59 06:59 Intake Total 782 200 Output Total 275 Balance 507 200 Weight 54.8 kg General appearance: PRESENT: no acute distress, cooperative, thin Head exam: PRESENT: atraumatic, normocephalic Eye exam: PRESENT: EOMI, PERRLA. ABSENT: periorbital swelling, scleral icterus Mouth exam: PRESENT: moist, neck supple Throat exam: ABSENT: tonsillar exudate, tonsillogmegaly Neck exam: ABSENT: meningismus, tenderness, thyromegaly Respiratory exam: PRESENT: symmetrical, unlabored. ABSENT: tachypnea, wheezes Cardiovascular exam: PRESENT: RRR, +S1, +S2 GI/Abdominal exam: PRESENT: soft. ABSENT: rebound, rigid, tenderness Extremities exam: ABSENT: joint swelling Musculoskeletal exam: PRESENT: full ROM Neurological exam: PRESENT: oriented to time, oriented to situation, reflexes normal, CN II-XII grossly intact Focused psych exam: PRESENT: restlessness Skin exam: PRESENT: normal color. ABSENT: mottled, pallor, petechiae, urticaria , vesicles Results Laboratory Results: 10/18/17 04:36 10/18/17 04:36 10/18/17 10/18/17 04:36 04:36 WBC 15.6 H RBC 3.42 L Hgb 11.3 L D Hct 31.2 L MCV 91 MCH 33.0 MCHC 36.1 H RDW 12.7 Plt Count 229 Seg Neutrophils % 80.3 H Lymphocytes % 11.3 L Monocytes % 7.5 Eosinophils % 0.4 Basophils % 0.5 Absolute Neutrophils 12.5 H Absolute Lymphocytes 1.8 Absolute Monocytes 1.2 Absolute Eosinophils 0.1 Absolute Basophils 0.1 Sodium 129.3 L Potassium 4.7 Chloride 99 Carbon Dioxide 23 Anion Gap 7 BUN 9 Creatinine 0.70 Est GFR ( Amer) > 60 Est GFR (Non-Af Amer) > 60 Glucose 79 Calcium 8.9 Magnesium 2.0 10/17/17 20:25 Troponin I 0.016 Impressions: Chest X-Ray 10/17/17 15:33 IMPRESSION: NO ACUTE RADIOGRAPHIC FINDING IN THE CHEST. Assessment & Plan - Diagnosis (1) Dysphagia Plan: Will need admission for rate control for his A. fib Once that has been completed he can undergo upper endoscopy. I am concerned that given his weight loss that he may potentially have a new finding in his esophagus. He has had a chronic cough. He will need an EGD., Risk benefits alternatives of the procedure which led to the patient detail informed consent is obtained further recommendations will be based upon the findings. - Time Time Spent: 50 to 70 Minutes
[2017-10-18] MEDS ORDERED: ENALAPRILAT DIHYDRATE INJ/PF 1.25 MG/1 ML SDV IV PRN (17:07)
--- NOTE | 2017-10-18 21:30 | RADIOLOGY REPORT (SQ) ---
EXAM DESCRIPTION: CT CHEST WITH COMPLETED DATE/TIME: 10/18/2017 9:10 pm REASON FOR STUDY: ESOPHAGEAL MASS COMPARISON: None. TECHNIQUE: CT scan of the chest performed using helical scanning technique with dynamic intravenous contrast injection. Images reviewed with lung, soft tissue and bone windows. Reconstructed coronal and sagittal MPR images reviewed. All images stored on PACS. All CT scanners at this facility use dose modulation, iterative reconstruction, and/or weight based d osing when appropriate to reduce radiation dose to as low as reasonably achievable (ALARA). [facility]: Dose Right [facility]: CareDose [facility]: Dose Right [facility]: Teradose 4D [facility]: [employer] CONTRAST TYPE AND DOSE: 80 Isovue 370- low osmolar. RENAL FUNCTION: GFR > 60. RADIATION DOSE: . LIMITATIONS: None. FINDINGS: LUNGS AND PLEURA: No opacities, nodules, masses. No pneumothorax. No effusions. HILAR AND MEDIASTINAL STRUCTURES: No identified masses or abnormal nodes. HEART AND VASCULAR STRUCTURES: No aneurysm or dissection. No central pulmonary emboli. No pericardi al effusion. HARDWARE: None in the chest. UPPER ABDOMEN: See separate report of the CT of the abdomen. THYROID AND OTHER SOFT TISSUES: No masses. No adenopathy. BONES: T11 compression fracture. Age indeterminate. There is not appear to be pathologic. OTHER: Extensive soft tissue masses seen in the distal 2/3 of the esophagus. IMPRESSION: T11 compression fracture of undetermined chronicity. Extensive soft tissue mass in the distal 2/3 of the esophagus. No adenopathy or parenchymal masses. TECHNICAL DOCUMENTATION: JOB ID: [id number] Quality ID # [id number]: Final reports with documentation of one or more dose reduction techniques (e.g., Au tomated exposure control, adjustment of the mA and/or kV according to patient size, use of iterative reconstruction technique) 2010 [employer]- All Rights Reserved
--- NOTE | 2017-10-18 21:57 | RADIOLOGY REPORT (SQ) ---
EXAM DESCRIPTION: CT ABD/PELVIS WITH IV ORAL COMPLETED DATE/TIME: 10/18/2017 9:10 pm REASON FOR STUDY: ESOPHAGEAL MASS COMPARISON: None. TECHNIQUE: CT scan of the abdomen and pelvis performed using helical scanning technique with dynamic intravenous contrast injection. No oral contrast. Images reviewed with lung, soft tissue, and bone windows. Reconstructed coronal and sagittal MPR images reviewed. Delayed images for evaluation of the urinary system also acquired. All images stored on PACS. All CT scanners at this facility use dose modulation, iterative reconstruction, and/or weight based d osing when appropriate to reduce radiation dose to as low as reasonably achievable (ALARA). [facility]: Dose Right [facility]: CareDose [facility]: Dose Right [facility]: Teradose 4D [facility]: [employer] CONTRAST TYPE AND DOSE: contrast/concentration: Isovue 370.00 mg/ml; Total Contrast Delivered: 80.0 ml; Total Saline Delivered: 45.0 ml RENAL FUNCTION: GFR > 60. RADIATION DOSE: . LIMITATIONS: None. FINDINGS: LOWER CHEST: See separate report of the CT of the chest. LIVER: Normal size. No masses. No dilated ducts. SPLEEN: Normal size. No focal lesions. PANCREAS: No masses. No significant calcifications. No adjacent inflammation or peripancreatic fluid collections. Pancreatic duct not dilated. GALLBLADDER: No identified stones by CT criteria. No inflammatory changes to suggest cholecystitis. ADRENAL GLANDS: No significant masses or asymmetry. RIGHT KIDNEY AND URETER: No solid masses. No significant calcifications. No hydronephrosis or hyd roureter. LEFT KIDNEY AND URETER: No solid masses. No significant calcifications. No hydronephrosis or hydr oureter. AORTA AND VESSELS: No aneurysm. No dissection. Renal arteries, SMA, celiac without stenosis. RETROPERITONEUM: No retroperitoneal adenopathy, hemorrhage or masses. BOWEL AND PERITONEAL CAVITY: No masses or inflammatory changes. No free fluid or peritoneal masses. APPENDIX: Not visualized. PELVIS: No mass. No free fluid. Normal bladder. ABDOMINAL WALL: No masses. No hernias. BONES: Degenerative disc disease L2-3, L3-4, L4-5, L5-S1. OTHER: No other significant finding. IMPRESSION: No metastatic lesions identified. TECHNICAL DOCUMENTATION: JOB ID: [id number] Quality ID # [id number]: Final reports with documentation of one or more dose reduction techniques (e.g., Au tomated exposure control, adjustment of the mA and/or kV according to patient size, use of iterative reconstruction technique) 2010 [employer]- All Rights Reserved
[2017-10-18] MEDS ORDERED: TRAZODONE HCL 50 MG TABLET PO SCH (22:00)
[2017-10-19] MEDS: METOPROLOL TARTRATE PF/INJ 5 MG/5 ML SDV IV SCH ×2 (05:32→12:17)
[2017-10-19] MEDS: LANSOPRAZOLE 30 MG TAB.RAP.DR PO SCH (05:32)
[2017-10-19 05:53] LABS: ANION GAP 8 (5-19); BLOOD UREA NITROGEN 9 mg/dL (7-20); CALCIUM 8.5 mg/dL (8.4-10.2); CARBON DIOXIDE 18 mmol/L (22-30); CHLORIDE 101 mmol/L (98-107); CREATININE RESULT 0.65 mg/dL (0.52-1.25); GLUCOSE 64 mg/dL (75-110); POTASSIUM 3.8 mmol/L (3.6-5.0)
[2017-10-19] MEDS: NORMAL SALINE 1000 ML 1,000 ML IV PRN (09:12)
[2017-10-19] MEDS ORDERED: VALSARTAN 160 MG TABLET PO SCH (10:00)
[2017-10-19] MEDS ORDERED: FINASTERIDE 5 MG TABLET PO SCH (10:00)
[2017-10-19] MEDS ORDERED: ASPIRIN 81 MG TABLET, ENT COATED PO SCH (10:00)
[2017-10-19] MEDS ORDERED: METOPROLOL SUCCINATE 50 MG TAB.SR.24H PO SCH (10:00)
[2017-10-19] MEDS ORDERED: CLOPIDOGREL BISULFATE 75 MG TABLET PO SCH (10:00)
--- NOTE | 2017-10-19 12:17 | PDOC PROGRESS REPORT ---
Subjective Progress Note for:: 10/19/17 Subjective:: Patient underwent EGD yesterday. Esophageal mass noted status post biopsy final pathology is still pending. Patient had a CT scan overnight including the chest, abdomen and pelvis no metastases was seen but it was reported the distal esophagus appeared to be thickened. It may be consistent with esophageal cancer. The question now is see if he is not able to swallow any of his pills he will probably need transfer to a tertiary institution. Question stent placement, and possible percutaneous endoscopic gastrostomy tube placement at the same time. We will need hematology oncology consult. Physical Exam Vital Signs: Temp Pulse Resp BP Pulse Ox 97.9 F 94 14 129/62 H 97 10/19/17 07:44 10/19/17 10:54 10/19/17 10:54 10/19/17 07:44 10/19/17 10:54 Intake & Output 10/18/17 10/19/17 10/20/17 06:59 06:59 06:59 Intake Total 782 1861 Output Total 275 125 Balance 507 1736 Weight 54.8 kg 55.8 kg General appearance: PRESENT: no acute distress, thin Head exam: PRESENT: atraumatic, normocephalic Eye exam: PRESENT: EOMI, PERRLA. ABSENT: nystagmus, scleral icterus Throat exam: ABSENT: tonsillar exudate, tonsillogmegaly Neck exam: ABSENT: meningismus, tenderness, thyromegaly Respiratory exam: PRESENT: symmetrical, unlabored. ABSENT: tachypnea, wheezes Cardiovascular exam: PRESENT: RRR, +S1, +S2 GI/Abdominal exam: PRESENT: soft. ABSENT: rebound, rigid, tenderness Musculoskeletal exam: PRESENT: full ROM Neurological exam: PRESENT: oriented to time, oriented to situation, CN II-XII grossly intact Skin exam: PRESENT: normal color. ABSENT: mottled, pallor, urticaria Results Laboratory Results: 10/18/17 04:36 10/19/17 04:33 10/19/17 10/19/17 04:33 04:33 Sodium 127.0 L Potassium 3.8 Chloride 101 Carbon Dioxide 18 L Anion Gap 8 BUN 9 Creatinine 0.65 Est GFR ( Amer) > 60 Est GFR (Non-Af Amer) > 60 Glucose 64 L Calcium 8.5 Vitamin B12 > 1000.0 H TSH 1.54 10/17/17 10/19/17 20:25 04:33 Troponin I 0.016 < 0.012 Impressions: Chest X-Ray 10/17/17 15:33 IMPRESSION: NO ACUTE RADIOGRAPHIC FINDING IN THE CHEST. Abdomen/Pelvis CT 10/18/17 00:00 IMPRESSION: No metastatic lesions identified. Chest CT 10/18/17 00:00 IMPRESSION: T11 compression fracture of undetermined chronicity. Extensive soft tissue mass in the distal 2/3 of the esophagus. No adenopathy or parenchymal masses. Assessment & Plan - Diagnosis (2) Dysphagia Qualifiers: Dysphagia type: esophageal phase Qualified Code(s): R13.10 - Dysphagia, unspecified Is this a current diagnosis for this admission?: Yes Plan: Question squamous cell versus adenocarcinoma. May need esophageal stent placement with then possible percutaneous endoscopic gastrostomy tube placement. We will probably need transfer to tertiary institution. Get hematology/oncology consult. We will wait on biopsies. - Time Time Spent with patient: 25-34 minutes
--- NOTE | 2017-10-19 13:38 | PDOC PROGRESS REPORT ---
Subjective Progress Note for:: 10/19/17 Reason For Visit: AFIB WITH RVR Physical Exam Vital Signs: Temp Pulse Resp BP Pulse Ox 97.9 F 79 16 129/62 H 100 10/19/17 07:44 10/19/17 07:44 10/19/17 07:44 10/19/17 07:44 10/19/17 07:44 Intake & Output 10/18/17 10/19/17 10/20/17 06:59 06:59 06:59 Intake Total 782 1861 Output Total 275 125 Balance 507 1736 Weight 54.8 kg 55.8 kg GENERAL: Well-developed, under nourished elderly white male resting in bed currently in no acute distress. HEART: Irregular rate and rhythm. 1 out of 6 systolic ejection murmur. No gallops or rubs. LUNGS: Clear to auscultation bilaterally with equal rise and fall of the chest. ABDOMEN: Soft, nontender, nondistended with normoactive bowel sounds EXTREMETIES: No clubbing, cyanosis or edema. 2+ peripheral pulses bilaterally. NEURO: Awake, alert and oriented 3. Ptosis of the right eye. Otherwise, cranial nerves are specifically intact. Results Laboratory Results: 10/18/17 04:36 10/19/17 04:33 10/19/17 10/19/17 04:33 04:33 Sodium 127.0 L Potassium 3.8 Chloride 101 Carbon Dioxide 18 L Anion Gap 8 BUN 9 Creatinine 0.65 Est GFR ( Amer) > 60 Est GFR (Non-Af Amer) > 60 Glucose 64 L Calcium 8.5 Vitamin B12 > 1000.0 H TSH 1.54 10/17/17 10/19/17 20:25 04:33 Troponin I 0.016 < 0.012 Impressions: Chest X-Ray 10/17/17 15:33 IMPRESSION: NO ACUTE RADIOGRAPHIC FINDING IN THE CHEST. Abdomen/Pelvis CT 10/18/17 00:00 IMPRESSION: No metastatic lesions identified. Chest CT 10/18/17 00:00 IMPRESSION: T11 compression fracture of undetermined chronicity. Extensive soft tissue mass in the distal 2/3 of the esophagus. No adenopathy or parenchymal masses. Assessment & Plan - Diagnosis (1) Atrial fibrillation with RVR Is this a current diagnosis for this admission?: Yes Plan: Converted to sinus rhythm. Change to p.o. metoprolol. (2) Esophageal web Plan: No web identified. However esophageal mass was identified and biopsies are pending. (3) Glaucoma Qualifiers: Glaucoma type: unspecified Laterality: right Qualified Code(s): H40.9 - Unspecified glaucoma Is this a current diagnosis for this admission?: Yes Plan: Continue latanoprost. (4) Chronic back pain Plan: Patient has had multiple previous back surgeries. (5) Malnutrition Plan: Patient's BMI is 19. He has decreased appetite and estimates a 30 pound weight loss over the last 6 months. Concern for underlying malignancy as the etiology for this. (6) Dysphagia Qualifiers: Dysphagia type: esophageal phase Qualified Code(s): R13.10 - Dysphagia, unspecified Is this a current diagnosis for this admission?: Yes Plan: Consult speech therapy. We will go ahead and change him to p.o. and allow his meds to be crushed to see how he is swallowing. He seems to be tolerating liquids much better. Advance according to speech recommendations. (7) Hypertension Qualifiers: Hypertension type: essential hypertension Qualified Code(s): I10 - Essential (primary) hypertension Plan: Continue on metoprolol. (8) Hyponatremia Is this a current diagnosis for this admission?: Yes Plan: Likely secondary to underlying dehydration from lack of p.o. 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 (9) Hypomagnesemia Is this a current diagnosis for this admission?: Yes Plan: Resolved. - Time Time Spent with patient: 15-24 minutes
[2017-10-19] MEDS ORDERED: ACETAMINOPHEN 325 MG TABLET PO PRN (13:44)
[2017-10-19] MEDS ORDERED: CLOPIDOGREL BISULFATE 75 MG TABLET PO ONE (15:00)
[2017-10-19] MEDS ORDERED: FINASTERIDE 5 MG TABLET PO ONE (15:00)
[2017-10-19] MEDS: LORAZEPAM INJ 2 MG/1 ML VIAL IV PRN (21:57)
[2017-10-19] MEDS: METOPROLOL TARTRATE 25 MG TABLET PO SCH (21:57)
[2017-10-20] MEDS: NORMAL SALINE 1000 ML 1,000 ML IV PRN ×2 (01:34→18:10)
[2017-10-20] MEDS: LANSOPRAZOLE 30 MG TAB.RAP.DR PO SCH (05:24)
[2017-10-20] MEDS: CLOPIDOGREL BISULFATE 75 MG TABLET PO SCH (10:14)
[2017-10-20] MEDS: METOPROLOL TARTRATE 25 MG TABLET PO SCH ×2 (10:14→21:52)
[2017-10-20] MEDS: FINASTERIDE 5 MG TABLET PO SCH (10:14)
[2017-10-20] MEDS: ASPIRIN 81 MG TABLET, CHEWABLE PO SCH (10:14)
--- NOTE | 2017-10-20 15:23 | PDOC PROGRESS REPORT ---
Subjective Progress Note for:: 10/20/17 Subjective:: Pt states that he is doing ok. Nursing states that pt's was concerned about pt going home. Family states that they would like for pt to go to rehab before going home. Reason For Visit: AFIB WITH RVR Physical Exam Vital Signs: Temp Pulse Resp BP Pulse Ox 99.3 F 73 16 130/67 H 97 10/20/17 11:15 10/20/17 14:00 10/20/17 11:15 10/20/17 11:15 10/20/17 11:15 Intake & Output 10/19/17 10/20/17 10/21/17 06:59 06:59 06:59 Intake Total 1861 1723 Output Total 125 1320 Balance 1736 403 Weight 55.8 kg 57.5 kg General appearance: PRESENT: no acute distress, thin Head exam: PRESENT: atraumatic, normocephalic Eye exam: PRESENT: conjunctiva pink, EOMI, PERRLA. ABSENT: scleral icterus Ear exam: PRESENT: normal external ear exam Mouth exam: PRESENT: moist, tongue midline Neck exam: ABSENT: carotid bruit, JVD, lymphadenopathy, thyromegaly Respiratory exam: PRESENT: clear to auscultation cally. ABSENT: rales, rhonchi, wheezes Cardiovascular exam: PRESENT: RRR. ABSENT: diastolic murmur, rubs, systolic murmur Pulses: PRESENT: normal dorsalis pedis pul Vascular exam: PRESENT: normal capillary refill GI/Abdominal exam: PRESENT: normal bowel sounds, soft. ABSENT: distended, guarding, mass, organolmegaly, rebound, tenderness Rectal exam: PRESENT: deferred Extremities exam: PRESENT: full ROM. ABSENT: calf tenderness, clubbing, pedal edema Neurological exam: PRESENT: alert, awake, oriented to person, oriented to place , oriented to time, oriented to situation, CN II-XII grossly intact. ABSENT: motor sensory deficit Psychiatric exam: PRESENT: appropriate affect, normal mood. ABSENT: homicidal ideation, suicidal ideation Skin exam: PRESENT: dry, intact, warm. ABSENT: cyanosis, rash Results Laboratory Results: 10/18/17 04:36 10/19/17 04:33 10/17/17 10/19/17 20:25 04:33 Troponin I 0.016 < 0.012 Impressions: Chest X-Ray 10/17/17 15:33 IMPRESSION: NO ACUTE RADIOGRAPHIC FINDING IN THE CHEST. Abdomen/Pelvis CT 10/18/17 00:00 IMPRESSION: No metastatic lesions identified. Chest CT 10/18/17 00:00 IMPRESSION: T11 compression fracture of undetermined chronicity. Extensive soft tissue mass in the distal 2/3 of the esophagus. No adenopathy or parenchymal masses. Assessment & Plan - Diagnosis (1) Atrial fibrillation with RVR Is this a current diagnosis for this admission?: Yes Plan: Resolved. Will continue current medications. Will increase Metoprolol to 25 mg PO qdaily. (2) Dysphagia Qualifiers: Dysphagia type: esophageal phase Qualified Code(s): R13.10 - Dysphagia, unspecified Is this a current diagnosis for this admission?: Yes Plan: Esophageal Mass: Pt to follow up with GI as outpatient. (3) Malnutrition Qualifiers: Malnutrition type: protein-calorie malnutrition Is this a current diagnosis for this admission?: Yes Plan: Moderate Protein Caloric malnutrition: Will encourage good PO intake. (4) Hypernatremia Is this a current diagnosis for this admission?: Yes Plan: Will place on Sodium Replacement. - Time Time Spent with patient: 15-24 minutes
[2017-10-20] MEDS ORDERED: METOPROLOL TARTRATE 25 MG TABLET PO SCH (18:00)
[2017-10-20] MEDS: SODIUM CHLORIDE 1 GM TABLET PO SCH (18:10)
--- NOTE | 2017-10-20 20:14 | PDOC PROGRESS REPORT ---
Subjective Progress Note for:: 10/20/17 Subjective:: Results of biopsy is still pending patient is anxious to be discharged the suspicion her is for esophageal cancer patient will need to have Heme Onc consult and possibly be transfered for possible stent placement along with alternatives means of nutrition, if indeed the biopsies are positive eventually might have complete closure of the esophagus Reason For Visit: AFIB WITH RVR Physical Exam Vital Signs: Temp Pulse Resp BP Pulse Ox 99.6 F 96 16 126/65 H 96 10/20/17 16:54 10/20/17 19:00 10/20/17 16:54 10/20/17 16:54 10/20/17 16:54 Intake & Output 10/19/17 10/20/17 10/21/17 06:59 06:59 06:59 Intake Total 1861 1723 1613 Output Total 125 1320 860 Balance 1736 403 753 Weight 55.8 kg 57.5 kg General appearance: PRESENT: no acute distress, well-developed, well-nourished Head exam: PRESENT: atraumatic, normocephalic Eye exam: PRESENT: conjunctiva pink, EOMI, PERRLA. ABSENT: scleral icterus Ear exam: PRESENT: normal external ear exam Mouth exam: PRESENT: moist, tongue midline Neck exam: ABSENT: carotid bruit, JVD, lymphadenopathy, thyromegaly Respiratory exam: PRESENT: clear to auscultation cally. ABSENT: rales, rhonchi, wheezes Cardiovascular exam: PRESENT: RRR. ABSENT: diastolic murmur, rubs, systolic murmur Pulses: PRESENT: normal dorsalis pedis pul Vascular exam: PRESENT: normal capillary refill GI/Abdominal exam: PRESENT: normal bowel sounds, soft. ABSENT: distended, guarding, mass, organolmegaly, rebound, tenderness Rectal exam: PRESENT: deferred Extremities exam: PRESENT: full ROM. ABSENT: calf tenderness, clubbing, pedal edema Neurological exam: PRESENT: alert, awake, oriented to person, oriented to place , oriented to time, oriented to situation, CN II-XII grossly intact. ABSENT: motor sensory deficit Psychiatric exam: PRESENT: appropriate affect, normal mood. ABSENT: homicidal ideation, suicidal ideation Skin exam: PRESENT: dry, intact, warm. ABSENT: cyanosis, rash Results Laboratory Results: 10/18/17 04:36 10/17/17 10/19/17 20:25 04:33 Troponin I 0.016 < 0.012 Impressions: Chest X-Ray 10/17/17 15:33 IMPRESSION: NO ACUTE RADIOGRAPHIC FINDING IN THE CHEST. Abdomen/Pelvis CT 10/18/17 00:00 IMPRESSION: No metastatic lesions identified. Chest CT 10/18/17 00:00 IMPRESSION: T11 compression fracture of undetermined chronicity. Extensive soft tissue mass in the distal 2/3 of the esophagus. No adenopathy or parenchymal masses. 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
[2017-10-20 20:27] LABS: BLOOD UREA NITROGEN 4 mg/dL (7-20); CALCIUM 8.4 mg/dL (8.4-10.2); CREATININE RESULT 0.57 mg/dL (0.52-1.25); GLUCOSE 109 mg/dL (75-110)
[2017-10-20 20:28] LABS: ANION GAP 7 (5-19); CARBON DIOXIDE 23 mmol/L (22-30); CHLORIDE 99 mmol/L (98-107); MAGNESIUM 1.4 mg/dL (1.6-2.3); POTASSIUM 3.2 mmol/L (3.6-5.0); SODIUM 129.4 mmol/L (137-145)
[2017-10-20] MEDS: LORAZEPAM INJ 2 MG/1 ML VIAL IV PRN (22:35)
[2017-10-21] MEDS: LANSOPRAZOLE 30 MG TAB.RAP.DR PO SCH (05:38)
[2017-10-21 07:26] LABS: ANION GAP 6 (5-19); BLOOD UREA NITROGEN 4 mg/dL (7-20); CALCIUM 8.4 mg/dL (8.4-10.2); CARBON DIOXIDE 24 mmol/L (22-30); CHLORIDE 98 mmol/L (98-107); CREATININE RESULT 0.58 mg/dL (0.52-1.25); GLUCOSE 77 mg/dL (75-110); SODIUM 127.6 mmol/L (137-145)
[2017-10-21 07:47] LABS: POTASSIUM 2.9 mmol/L (3.6-5.0)
[2017-10-21] MEDS: SODIUM CHLORIDE 1 GM TABLET PO SCH ×2 (10:21→17:38)
[2017-10-21] MEDS: FINASTERIDE 5 MG TABLET PO SCH (10:21)
[2017-10-21] MEDS: ASPIRIN 81 MG TABLET, CHEWABLE PO SCH (10:21)
[2017-10-21] MEDS: METOPROLOL TARTRATE 25 MG TABLET PO SCH ×2 (10:22→21:43)
[2017-10-21] MEDS: CLOPIDOGREL BISULFATE 75 MG TABLET PO SCH (10:22)
[2017-10-21] MEDS ORDERED: POTASSIUM CHLORIDE 20 MEQ/15 ML UDCUP PO ONE ×2 (10:52→14:15)
--- NOTE | 2017-10-21 11:04 | PDOC PROGRESS REPORT ---
Subjective Progress Note for:: 10/21/17 Subjective:: Pt states that he is doing ok. Reason For Visit: AFIB WITH RVR Physical Exam Vital Signs: Temp Pulse Resp BP Pulse Ox 98.8 F 91 19 123/71 99 10/21/17 08:25 10/21/17 08:25 10/21/17 08:25 10/21/17 08:25 10/21/17 08:25 Intake & Output 10/20/17 10/21/17 10/22/17 06:59 06:59 06:59 Intake Total 1723 2202 Output Total 1320 1760 Balance 403 442 Weight 57.5 kg 55.7 kg General appearance: PRESENT: no acute distress, thin Head exam: PRESENT: atraumatic, normocephalic Eye exam: PRESENT: conjunctiva pink, EOMI, PERRLA. ABSENT: scleral icterus Ear exam: PRESENT: normal external ear exam Mouth exam: PRESENT: moist, tongue midline Neck exam: ABSENT: carotid bruit, JVD, lymphadenopathy, thyromegaly Respiratory exam: PRESENT: clear to auscultation cally. ABSENT: rales, rhonchi, wheezes Cardiovascular exam: PRESENT: RRR. ABSENT: diastolic murmur, rubs, systolic murmur Pulses: PRESENT: normal dorsalis pedis pul Vascular exam: PRESENT: normal capillary refill GI/Abdominal exam: PRESENT: normal bowel sounds, soft. ABSENT: distended, guarding, mass, organolmegaly, rebound, tenderness Rectal exam: PRESENT: deferred Extremities exam: PRESENT: full ROM. ABSENT: calf tenderness, clubbing, pedal edema Neurological exam: PRESENT: alert, awake, oriented to person, oriented to place , CN II-XII grossly intact. ABSENT: motor sensory deficit Psychiatric exam: PRESENT: appropriate affect, normal mood. ABSENT: homicidal ideation, suicidal ideation Skin exam: PRESENT: dry, intact, warm. ABSENT: cyanosis, rash Results Laboratory Results: 10/18/17 04:36 10/21/17 06:34 10/20/17 10/21/17 19:56 06:34 Sodium 129.4 L 127.6 L Potassium 3.2 L 2.9 L* Chloride 99 98 Carbon Dioxide 23 24 Anion Gap 7 6 BUN 4 L 4 L Creatinine 0.57 0.58 Est GFR ( Amer) > 60 > 60 Est GFR (Non-Af Amer) > 60 > 60 Glucose 109 77 Calcium 8.4 8.4 Magnesium 1.4 L 10/17/17 10/19/17 20:25 04:33 Troponin I 0.016 < 0.012 Impressions: Chest X-Ray 10/17/17 15:33 IMPRESSION: NO ACUTE RADIOGRAPHIC FINDING IN THE CHEST. Abdomen/Pelvis CT 10/18/17 00:00 IMPRESSION: No metastatic lesions identified. Chest CT 10/18/17 00:00 IMPRESSION: T11 compression fracture of undetermined chronicity. Extensive soft tissue mass in the distal 2/3 of the esophagus. No adenopathy or parenchymal masses. Assessment & Plan - Diagnosis (1) Atrial fibrillation with RVR Is this a current diagnosis for this admission?: Yes Plan: Resolved. Will continue current medications. Metoprolol to 25 mg PO qdaily. (2) Dysphagia Qualifiers: Dysphagia type: esophageal phase Qualified Code(s): R13.10 - Dysphagia, unspecified Is this a current diagnosis for this admission?: Yes Plan: Esophageal Mass: GI wrote note yesterday. Awaiting further recommendations. (3) Malnutrition Qualifiers: Malnutrition type: protein-calorie malnutrition Is this a current diagnosis for this admission?: Yes Plan: Moderate Protein Caloric malnutrition: Will encourage good PO intake. Awaiting GI's recommendations about feeding. (4) Hyponatremia Is this a current diagnosis for this admission?: Yes Plan: Will continue sodium replacement. (5) Frequent falls Is this a current diagnosis for this admission?: Yes Plan: Will have pt continue to work with PT/OT. - Time Time Spent with patient: 15-24 minutes
[2017-10-21] MEDS: MAGNESIUM SULFATE/D5W 1 GM/100 ML RTUPB IV SCH ×2 (11:33→12:50)
[2017-10-21] MEDS: LORAZEPAM INJ 2 MG/1 ML VIAL IV PRN (21:43)
[2017-10-22] MEDS: LANSOPRAZOLE 30 MG TAB.RAP.DR PO SCH (06:15)
[2017-10-22 06:28] LABS: ABSOLUTE EOSINOPHILS # (AUTO) 0.2 10^3/uL (0.0-0.6); ABSOLUTE LYMPHOCYTES (AUTO) 1.6 10^3/uL (0.5-4.7); ABSOLUTE MONOCYTES (AUTO) 1.3 10^3/uL (0.1-1.4); ABSOLUTE NEUT (AUTO) 12.5 10^3/uL (1.7-8.2); BASOPHILS % (AUTO) 0.3 % (0-2); EOSINOPHILS % (AUTO) 1.3 % (0-6); HEMATOCRIT 28.5 % (37.9-51.0); HEMOGLOBIN 10.3 g/dL (13.5-17.0); HGB HCT DIFFERENCE 2.4; LYMPHOCYTES % (AUTO) 10.4 % (13-45); MEAN CORPUSCULAR HGB CONC 36.1 g/dL (32.0-36.0); MEAN CORPUSCULAR VOLUME 91 fl (80-97); MONOCYTES % (AUTO) 8.4 % (3-13); RED BLOOD COUNT 3.12 10^6/uL (4.35-5.55); RED CELL DISTRIBUTION WIDTH 12.6 % (11.5-14.0); SEGMENTED NEUTROPHILS % (AUTO) 79.6 % (42-78); WHITE BLOOD COUNT 15.7 10^3/uL (4.0-10.5)
[2017-10-22 06:54] LABS: BLOOD UREA NITROGEN 4 mg/dL (7-20); CALCIUM 8.4 mg/dL (8.4-10.2); CARBON DIOXIDE 26 mmol/L (22-30); MAGNESIUM 1.7 mg/dL (1.6-2.3)
[2017-10-22 07:13] LABS: ANION GAP 5 (5-19); CHLORIDE 95 mmol/L (98-107); CREATININE RESULT 0.53 mg/dL (0.52-1.25); GLUCOSE 75 mg/dL (75-110)
[2017-10-22 07:17] LABS: POTASSIUM 3.9 mmol/L (3.6-5.0)
[2017-10-22] MEDS: CLOPIDOGREL BISULFATE 75 MG TABLET PO SCH (10:36)
[2017-10-22] MEDS: ASPIRIN 81 MG TABLET, CHEWABLE PO SCH (10:36)
[2017-10-22] MEDS: FINASTERIDE 5 MG TABLET PO SCH (10:36)
[2017-10-22] MEDS: SODIUM CHLORIDE 1 GM TABLET PO SCH ×3 (10:36→18:47)
[2017-10-22] MEDS: METOPROLOL TARTRATE 25 MG TABLET PO SCH ×2 (10:37→23:01)
[2017-10-22] MEDS: MAGNESIUM SULFATE/D5W 1 GM/100 ML RTUPB IV SCH ×2 (12:00→15:41)
--- NOTE | 2017-10-22 12:04 | PDOC PROGRESS REPORT ---
Subjective Progress Note for:: 10/22/17 Subjective:: Pt states that he is doing ok. Reason For Visit: AFIB WITH RVR Physical Exam Vital Signs: Temp Pulse Resp BP Pulse Ox 98.9 F 89 22 H 123/55 L 96 10/22/17 01:07 10/22/17 09:10 10/22/17 01:07 10/22/17 09:10 10/22/17 09:10 Intake & Output 10/21/17 10/22/17 10/23/17 06:59 06:59 06:59 Intake Total 2202 1320 Output Total 1760 2120 Balance 442 -800 Weight 55.7 kg General appearance: PRESENT: no acute distress, thin Head exam: PRESENT: atraumatic, normocephalic Eye exam: PRESENT: conjunctiva pink, EOMI. ABSENT: scleral icterus Ear exam: PRESENT: normal external ear exam Mouth exam: PRESENT: moist, tongue midline Neck exam: ABSENT: carotid bruit, JVD, lymphadenopathy, thyromegaly Respiratory exam: PRESENT: clear to auscultation cally. ABSENT: rales, rhonchi, wheezes Cardiovascular exam: PRESENT: RRR. ABSENT: diastolic murmur, rubs, systolic murmur Pulses: PRESENT: normal dorsalis pedis pul Vascular exam: PRESENT: normal capillary refill GI/Abdominal exam: PRESENT: normal bowel sounds, soft. ABSENT: distended, guarding, mass, organolmegaly, rebound, tenderness Rectal exam: PRESENT: deferred Extremities exam: PRESENT: full ROM. ABSENT: calf tenderness, clubbing, pedal edema Neurological exam: PRESENT: alert, awake, oriented to person, oriented to place , oriented to time, oriented to situation, CN II-XII grossly intact. ABSENT: motor sensory deficit Psychiatric exam: PRESENT: appropriate affect, normal mood. ABSENT: homicidal ideation, suicidal ideation Skin exam: PRESENT: dry, intact, warm. ABSENT: cyanosis, rash Results Laboratory Results: 10/22/17 05:19 10/22/17 05:19 10/21/17 10/22/17 10/22/17 16:21 05:19 05:19 WBC 15.7 H RBC 3.12 L Hgb 10.3 L Hct 28.5 L MCV 91 MCH 33.0 MCHC 36.1 H RDW 12.6 Plt Count 177 Seg Neutrophils % 79.6 H Lymphocytes % 10.4 L Monocytes % 8.4 Eosinophils % 1.3 Basophils % 0.3 Absolute Neutrophils 12.5 H Absolute Lymphocytes 1.6 Absolute Monocytes 1.3 Absolute Eosinophils 0.2 Absolute Basophils 0.0 Sodium 126.0 L Potassium 3.9 D Chloride 95 L Carbon Dioxide 26 Anion Gap 5 BUN 4 L Creatinine 0.53 Est GFR ( Amer) > 60 Est GFR (Non-Af Amer) > 60 Glucose 75 Calcium 8.4 Magnesium 1.7 Stool Occult Blood POSITIVE 10/17/17 10/19/17 20:25 04:33 Troponin I 0.016 < 0.012 Impressions: Chest X-Ray 10/17/17 15:33 IMPRESSION: NO ACUTE RADIOGRAPHIC FINDING IN THE CHEST. Abdomen/Pelvis CT 10/18/17 00:00 IMPRESSION: No metastatic lesions identified. Chest CT 10/18/17 00:00 IMPRESSION: T11 compression fracture of undetermined chronicity. Extensive soft tissue mass in the distal 2/3 of the esophagus. No adenopathy or parenchymal masses. Assessment & Plan - Diagnosis (1) Atrial fibrillation with RVR Is this a current diagnosis for this admission?: Yes Plan: Resolved. Will continue current medications. Metoprolol to 25 mg PO qdaily. (2) Dysphagia Qualifiers: Dysphagia type: esophageal phase Qualified Code(s): R13.10 - Dysphagia, unspecified Is this a current diagnosis for this admission?: Yes Plan: Esophageal Mass: Awaiting further recommendations. Contacted Dr. Humphries's office today. (3) Malnutrition Qualifiers: Malnutrition type: protein-calorie malnutrition Is this a current diagnosis for this admission?: Yes Plan: Moderate Protein Caloric malnutrition: Will encourage good PO intake. Awaiting GI's recommendations about feeding. (4) Hyponatremia Is this a current diagnosis for this admission?: Yes Plan: Will increase sodium replacement to TID. (5) Frequent falls Is this a current diagnosis for this admission?: Yes Plan: Will have pt continue to work with PT/OT. (6) Occult blood in stools Is this a current diagnosis for this admission?: Yes Plan: Pt with + occult blood. Contacted Dr. Humphries's but awaiting return of call. Family wanting to know the results of biopsy. (7) Hypokalemia Is this a current diagnosis for this admission?: Yes Plan: Pt give potassium placement yesterday. Will continue to monitor. (8) Hypomagnesemia Is this a current diagnosis for this admission?: Yes Plan: Will give additional Magnesium replacement. - Time Time Spent with patient: 15-24 minutes
[2017-10-22 13:20] LABS: APPEARANCE,URINE CLEAR; BILIRUBIN,URINE NEGATIVE (NEGATIVE); GLUCOSE, URINE NEGATIVE (NEGATIVE); KETONES,URINE NEGATIVE (NEGATIVE); LEUKOCYTE ESTERASE,URINE NEGATIVE (NEGATIVE); NITRITE,URINE NEGATIVE (NEGATIVE); PROTEIN,URINE NEGATIVE (NEGATIVE); URINE SPECIFIC GRAVITY 1.008; UROBILINOGEN,URINE NEGATIVE mg/dL (<2.0)
[2017-10-22 13:26] LABS: BACTERIA,URINE TRACE /HPF; HYALINE CASTS, URINE RARE /LPF
[2017-10-22] MEDS: LORAZEPAM INJ 2 MG/1 ML VIAL IV PRN (22:55)
[2017-10-23 05:43] LABS: ABSOLUTE EOSINOPHILS # (AUTO) 0.2 10^3/uL (0.0-0.6); ABSOLUTE MONOCYTES (AUTO) 1.3 10^3/uL (0.1-1.4); ABSOLUTE NEUT (AUTO) 13.4 10^3/uL (1.7-8.2); BASOPHILS % (AUTO) 0.2 % (0-2); EOSINOPHILS % (AUTO) 1.1 % (0-6); HEMATOCRIT 29.8 % (37.9-51.0); HEMOGLOBIN 10.7 g/dL (13.5-17.0); HGB HCT DIFFERENCE 2.3; LYMPHOCYTES % (AUTO) 11.6 % (13-45); MEAN CORPUSCULAR HEMOGLOBIN 32.6 pg (27.0-33.4); MEAN CORPUSCULAR VOLUME 90 fl (80-97); MONOCYTES % (AUTO) 7.8 % (3-13); RED CELL DISTRIBUTION WIDTH 12.6 % (11.5-14.0); SEGMENTED NEUTROPHILS % (AUTO) 79.3 % (42-78); WHITE BLOOD COUNT 16.9 10^3/uL (4.0-10.5)
[2017-10-23 05:50] LABS: ALANINE AMINOTRANSFERASE 31 U/L (21-72); ALBUMIN 2.3 g/dL (3.5-5.0); ALKALINE PHOSPHATASE 82 U/L (38-126); ANION GAP 7 (5-19); ASPARTATE AMINO TRANSFERASE 16 U/L (17-59); BILIRUBIN,DIRECT 0.5 mg/dL (0.0-0.4); BILIRUBIN,TOTAL 0.8 mg/dL (0.2-1.3); BLOOD UREA NITROGEN 6 mg/dL (7-20); CALCIUM 8.5 mg/dL (8.4-10.2); CARBON DIOXIDE 26 mmol/L (22-30); CHLORIDE 92 mmol/L (98-107); CREATININE RESULT 0.55 mg/dL (0.52-1.25); GLUCOSE 86 mg/dL (75-110); MAGNESIUM 1.8 mg/dL (1.6-2.3); POTASSIUM 3.8 mmol/L (3.6-5.0); SODIUM 124.8 mmol/L (137-145); TOTAL PROTEIN 4.8 g/dL (6.3-8.2)
[2017-10-23] MEDS: LANSOPRAZOLE 30 MG TAB.RAP.DR PO SCH (07:21)
[2017-10-23] MEDS: ASPIRIN 81 MG TABLET, CHEWABLE PO SCH (11:04)
[2017-10-23] MEDS: FINASTERIDE 5 MG TABLET PO SCH (11:05)
[2017-10-23] MEDS: SODIUM CHLORIDE 1 GM TABLET PO SCH ×3 (11:05→17:57)
[2017-10-23] MEDS: CLOPIDOGREL BISULFATE 75 MG TABLET PO SCH (11:05)
[2017-10-23] MEDS: METOPROLOL TARTRATE 25 MG TABLET PO SCH (11:10)
--- NOTE | 2017-10-23 17:04 | PDOC CONSULTATION ---
Consultation Consult Date: 10/23/17 Consult reason:: Esophageal cancer History of Present Illness Admission Date/PCP: 10/17/17 17:32 JEROME MCKEON DO History of Present Illness: Mr. Baron is a 77 year old gentleman with a history of esophageal web and strictures. His last EGD was 2 years ago. He presented to his PCP with weight loss, difficulty swallowing and heart palpitations. He was found to have afib and was admitted to the hospital. During this admission, his afib was treated and controlled and EGD with dilation and biopsy was performed. 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 CT scan of the C/A showed esophageal mass in the lower 1/3 with no evidence of mets elsewhere. Today, he states that he feels "Pretty good" and is swallowing much better. He is unable to sleep here in the hospital. Family report that he is looking much better, but is still too weak to go home. They are requesting home PT and HHN for help at home. Past Medical History Cardiac Medical History: Reports: Atrial Fibrillation, Hyperlipidema, Hypertension Denies: Coronary Artery Disease, Myocardial Infarction Pulmonary Medical History: Denies: Asthma, Bronchitis, Chronic Obstructive Pulmonary Disease (COPD), Pneumonia EENT Medical History: Reports: Other - Glaucoma in the right eye Neurological Medical History: Denies: Seizures GI Medical History: Reports: Gastroesophageal Reflux Disease, Other - Esophageal web status post dilation Musculoskeltal Medical History: Reports: Arthritis Psychiatric Medical History: Reports: Post Traumatic Stress Disorder Hematology: Reports: Other - Glaucoma in the right eye Denies: Anemia Past Surgical History Past Surgical History: Reports: Orthopedic Surgery - Left Achilles tendon repair , Other - Cataracts, spinal surgery, EGDs. 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 Lives with: Spouse/Significant other Smoking Status: Former Smoker Number of Years Smokin Last Time Smoked: 1985 Frequency of Alcohol Use: Occasional Hx Recreational Drug Use: No Drugs: None Hx Prescription Drug Abuse: No Past Social History Note: He has 2 Daughters and 6 grandchildren. There is 1 Dog in the home. - Advance Directive Resuscitation Status: Do Not Resuscitate Family History Family History: None Parental Family History Reviewed: Yes - Father of an unknown cancer. Mother in her 50s from brain aneuri Children Family History Reviewed: Yes Sibling(s) Family History Reviewed.: Yes Medication/Allergy Home Medications: Aspirin [Aspirin EC] 81 mg PO DAILY 10/18/17 Clopidogrel Bisulfate [Plavix 75 mg Tablet] 75 mg PO DAILY 10/18/17 Cyanocobalamin (Vitamin B-12) [Vitamin B-12] 1,000 mcg PO DAILY 10/18/17 Docusate Sodium [Colace 100 mg Capsule] 100 mg PO DAILYP PRN 10/18/17 Finasteride [Proscar 5 mg Tablet] 5 mg PO DAILY 10/18/17 Magnesium Oxide [Mag-Ox 400 mg Tablet] 800 mg PO DAILY 10/18/17 Metoprolol Succinate [Toprol Xl 50 mg Tab.sr] 50 mg PO DAILY 10/18/17 Pantoprazole Sodium [Protonix] 40 mg PO DAILY 10/18/17 Prazosin HCl [Minipress] 1 mg PO QHS 10/18/17 Tramadol HCl [Ultram 50 mg Tablet] 50 mg PO DAILY 10/18/17 Trazodone HCl [Desyrel] 100 mg PO QHS 10/18/17 Valsartan [Diovan 160 mg Tablet] 160 mg PO DAILY 10/18/17 Allergies/Adverse Reactions: cyclobenzaprine HCl [From Flexeril] Allergy (Intermediate, Verified 05/06/15 08: 05) Hallucinations oxycodone HCl [From Percocet] Allergy (Intermediate, Verified 05/06/15 08:05) Hallucinations hydrocodone bitartrate [From Vicodin] Adverse Reaction (Severe, Verified 08:05) Hallucinations Review of Systems Constitutional: ABSENT: fever(s), headache(s) Eyes: ABSENT: visual disturbances Ears: ABSENT: hearing changes Nose, Mouth, and Throat: ABSENT: headache(s) Cardiovascular: PRESENT: as per HPI Respiratory: PRESENT: dyspnea Gastrointestinal: PRESENT: constipation Musculoskeletal: PRESENT: muscle weakness, other - neck pain Integumentary: ABSENT: rash Neurological: PRESENT: frequent falls Psychiatric: ABSENT: anxiety, depression Physical Exam Vital Signs: Temp Pulse Resp BP Pulse Ox 98.4 F 85 18 113/63 98 10/23/17 15:47 10/23/17 15:47 10/23/17 15:47 10/23/17 15:47 10/23/17 15:47 Intake & Output 10/22/17 10/23/17 10/24/17 06:59 06:59 06:59 Intake Total 1320 855 354 Output Total 8695 4697 205 Balance -800 -1240 149 Weight 54.7 kg General appearance: PRESENT: no acute distress, thin Head exam: PRESENT: atraumatic Eye exam: PRESENT: EOMI, PERRLA Ear exam: PRESENT: normal external ear exam Mouth exam: PRESENT: neck supple, tongue midline Neck exam: ABSENT: JVD, lymphadenopathy, thyromegaly Respiratory exam: PRESENT: clear to auscultation cally Cardiovascular exam: PRESENT: RRR. ABSENT: systolic murmur Pulses: PRESENT: normal dorsalis pedis pul GI/Abdominal exam: PRESENT: soft. ABSENT: tenderness Musculoskeletal exam: PRESENT: full ROM. ABSENT: deformity Neurological exam: PRESENT: alert, awake. ABSENT: motor sensory deficit Psychiatric exam: PRESENT: appropriate affect Skin exam: PRESENT: normal color, other - Echymoses arms Results Laboratory Results: 10/23/17 05:01 10/23/17 05:01 10/23/17 10/23/17 10/23/17 05:01 05:01 05:01 WBC 16.9 H RBC 3.30 L Hgb 10.7 L Hct 29.8 L MCV 90 MCH 32.6 MCHC 36.0 RDW 12.6 Plt Count 192 Seg Neutrophils % 79.3 H Lymphocytes % 11.6 L Monocytes % 7.8 Eosinophils % 1.1 Basophils % 0.2 Absolute Neutrophils 13.4 H Absolute Lymphocytes 2.0 Absolute Monocytes 1.3 Absolute Eosinophils 0.2 Absolute Basophils 0.0 Sodium 124.8 L Potassium 3.8 Chloride 92 L Carbon Dioxide 26 Anion Gap 7 BUN 6 L Creatinine 0.55 Est GFR ( Amer) > 60 Est GFR (Non-Af Amer) > 60 Glucose 86 Serum Osmolality 256 L Calcium 8.5 Magnesium 1.8 Total Bilirubin 0.8 AST 16 L ALT 31 Alkaline Phosphatase 82 Total Protein 4.8 L Albumin 2.3 L Urine Osmolality 10/23/17 08:15 WBC RBC Hgb Hct MCV MCH MCHC RDW Plt Count Seg Neutrophils % Lymphocytes % Monocytes % Eosinophils % Basophils % Absolute Neutrophils Absolute Lymphocytes Absolute Monocytes Absolute Eosinophils Absolute Basophils Sodium Potassium Chloride Carbon Dioxide Anion Gap BUN Creatinine Est GFR ( Amer) Est GFR (Non-Af Amer) Glucose Serum Osmolality Calcium Magnesium Total Bilirubin AST ALT Alkaline Phosphatase Total Protein Albumin Urine Osmolality 330 11/29/17 12/01/17 20:25 04:33 Troponin I 0.016 < 0.012 Impressions: Chest X-Ray 10/17/17 15:33 IMPRESSION: NO ACUTE RADIOGRAPHIC FINDING IN THE CHEST. Abdomen/Pelvis CT 10/18/17 00:00 IMPRESSION: No metastatic lesions identified. Chest CT 10/18/17 00:00 IMPRESSION: T11 compression fracture of undetermined chronicity. Extensive soft tissue mass in the distal 2/3 of the esophagus. No adenopathy or parenchymal masses. Assessment & Plan - Diagnosis (1) Esophageal cancer Qualifiers: Malignant neoplasm of esophagus location: lower third Qualified Code(s): C15.5 - Malignant neoplasm of lower third of esophagus Is this a current diagnosis for this admission?: Yes Plan: Although the pathology showed Carcinoma in situ, clinically, this is most likely an invasive lesion. Further testing to determine this will need to take place. I have recommended PET/CT and possible repeat esophageal biopsy. I also believe surgical consultation with thoracic surgeon is appropriate. (2) Malnutrition Qualifiers: Malnutrition type: protein-calorie malnutrition Is this a current diagnosis for this admission?: Yes Plan: He is swallowing better and hopefully, nutrition will improve. His performance status at this point is not good enough to consider aggressive treatments like chemo, but hopefully, this will change in the near future. He understands that he will need to get stronger at home before further treatment will be possible. (3) Frequent falls Is this a current diagnosis for this admission?: Yes Plan: Family will help at home as much as possible. They are requesting PT and HHN. He already has walker, bedside commode and wheel chair at home. - Plan Summary Plan Summary: I reviewed the CT chest/A/P and Pathology reports with the patient and the family and copies were given to them. All questions were answered to the best of my ability. They understand that no definitive plan is possible yet, but will need more information. I will be following him as outpatient as well.
--- NOTE | 2017-10-23 17:38 | PDOC PROGRESS REPORT ---
Subjective Progress Note for:: 10/23/17 Subjective:: The patient is resting in his bed. He states that he is feeling much better. We did discuss the results of his pathology. We are going to wait and see what Dr. Humphries as well as Dr. Kang recommending and make some decisions about disposition. I spent quite some time discussing the plan of care with the patient and his . All of their questions were answered. Overall the patient denies fever chills. No chest pain, shortness of breath or heart palpitations. No nausea, vomiting or diarrhea. No dysuria, frequency or hematuria Reason For Visit: AFIB WITH RVR Physical Exam Vital Signs: Temp Pulse Resp BP Pulse Ox 98.4 F 85 18 113/63 98 10/23/17 15:47 10/23/17 15:47 10/23/17 15:47 10/23/17 15:47 10/23/17 15:47 Intake & Output 10/22/17 10/23/17 10/24/17 06:59 06:59 06:59 Intake Total 1320 855 364 Output Total 2120 2095 205 Balance -800 -1240 159 Weight 54.7 kg General appearance: PRESENT: no acute distress, well-developed, well-nourished Head exam: PRESENT: atraumatic, normocephalic Ear exam: PRESENT: normal external ear exam Neck exam: ABSENT: carotid bruit, JVD, lymphadenopathy, thyromegaly Respiratory exam: PRESENT: clear to auscultation cally. ABSENT: rales, rhonchi, wheezes Cardiovascular exam: PRESENT: RRR. ABSENT: diastolic murmur, rubs, systolic murmur GI/Abdominal exam: PRESENT: normal bowel sounds, soft. ABSENT: distended, guarding, mass, organolmegaly, rebound, tenderness Rectal exam: PRESENT: deferred Extremities exam: PRESENT: full ROM. ABSENT: calf tenderness, clubbing, pedal edema Neurological exam: PRESENT: alert, awake, oriented to person, oriented to place , oriented to time, oriented to situation, CN II-XII grossly intact. ABSENT: motor sensory deficit Psychiatric exam: PRESENT: appropriate affect, normal mood. ABSENT: homicidal ideation, suicidal ideation Skin exam: PRESENT: dry, intact, warm. ABSENT: cyanosis, rash Results Laboratory Results: 10/23/17 05:01 10/23/17 05:01 10/23/17 10/23/17 10/23/17 05:01 05:01 05:01 WBC 16.9 H RBC 3.30 L Hgb 10.7 L Hct 29.8 L MCV 90 MCH 32.6 MCHC 36.0 RDW 12.6 Plt Count 192 Seg Neutrophils % 79.3 H Lymphocytes % 11.6 L Monocytes % 7.8 Eosinophils % 1.1 Basophils % 0.2 Absolute Neutrophils 13.4 H Absolute Lymphocytes 2.0 Absolute Monocytes 1.3 Absolute Eosinophils 0.2 Absolute Basophils 0.0 Sodium 124.8 L Potassium 3.8 Chloride 92 L Carbon Dioxide 26 Anion Gap 7 BUN 6 L Creatinine 0.55 Est GFR ( Amer) > 60 Est GFR (Non-Af Amer) > 60 Glucose 86 Serum Osmolality 256 L Calcium 8.5 Magnesium 1.8 Total Bilirubin 0.8 AST 16 L ALT 31 Alkaline Phosphatase 82 Total Protein 4.8 L Albumin 2.3 L Urine Osmolality 10/23/17 08:15 WBC RBC Hgb Hct MCV MCH MCHC RDW Plt Count Seg Neutrophils % Lymphocytes % Monocytes % Eosinophils % Basophils % Absolute Neutrophils Absolute Lymphocytes Absolute Monocytes Absolute Eosinophils Absolute Basophils Sodium Potassium Chloride Carbon Dioxide Anion Gap BUN Creatinine Est GFR ( Amer) Est GFR (Non-Af Amer) Glucose Serum Osmolality Calcium Magnesium Total Bilirubin AST ALT Alkaline Phosphatase Total Protein Albumin Urine Osmolality 330 10/17/17 10/19/17 20:25 04:33 Troponin I 0.016 < 0.012 Impressions: Chest X-Ray 10/17/17 15:33 IMPRESSION: NO ACUTE RADIOGRAPHIC FINDING IN THE CHEST. Abdomen/Pelvis CT 10/18/17 00:00 IMPRESSION: No metastatic lesions identified. Chest CT 10/18/17 00:00 IMPRESSION: T11 compression fracture of undetermined chronicity. Extensive soft tissue mass in the distal 2/3 of the esophagus. No adenopathy or parenchymal masses. Assessment & Plan - Diagnosis (1) Squamous cell carcinoma in situ Plan: The patient will be seen by Dr. Acosta as well as oncology today. We will make further decisions on his disposition at that time. I do believe that further workup for this could be performed as an outpatient. Currently the patient is able to swallow. He is on a soft diet (2) Dysphagia Qualifiers: Dysphagia type: esophageal phase Qualified Code(s): R13.10 - Dysphagia, unspecified Is this a current diagnosis for this admission?: Yes Plan: Continue modified diet (3) Atrial fibrillation with rapid ventricular response Plan: Resolved at this point. (4) Moderate protein-calorie malnutrition Plan: I have encouraged the use of supplements. (5) Hyponatremia Plan: The patient has worsening hyponatremia. I have obtained urine sodium and osmole as well as serum osmolality. Possibly secondary to SIADH. I am going to place the patient on a fluid restriction. Going to obtain a TSH and a fasting cortisol in the morning. (6) Occult blood in stools Is this a current diagnosis for this admission?: Yes Plan: Likely secondary to underlying malignancy. (7) Frequent falls Is this a current diagnosis for this admission?: Yes Plan: He will likely be discharged home with home health physical therapy and occupational therapy. (8) Hypokalemia Is this a current diagnosis for this admission?: Yes Plan: Repleted (9) Hypomagnesemia Is this a current diagnosis for this admission?: Yes Plan: Repleted (10) Anemia Plan: Quite stable. Likely related to chronic dizziness as well as slow GI blood losses. - Time Time Spent with patient: 35 or more minutes - Inpatient Certification Medical Necessity: Other - Inpatient hospitalization remains necessary. The patient's sodium level is quite low. I would like to see how he does on a fluid restriction overnight. We will recheck a chemistry panel in the morning. I think the patient likely can complete the workup for his possible underlying malignancy as an outpatient. We will await further input from oncology as well as the GI service.
[2017-10-24] MEDS: METOPROLOL TARTRATE 25 MG TABLET PO SCH ×3 (00:18→22:08)
[2017-10-24 04:31] LABS: ABSOLUTE BASOPHILS # (AUTO) 0.1 10^3/uL (0.0-0.2); ABSOLUTE EOSINOPHILS # (AUTO) 0.1 10^3/uL (0.0-0.6); ABSOLUTE LYMPHOCYTES (AUTO) 1.8 10^3/uL (0.5-4.7); ABSOLUTE MONOCYTES (AUTO) 1.5 10^3/uL (0.1-1.4); ABSOLUTE NEUT (AUTO) 15.4 10^3/uL (1.7-8.2); BASOPHILS % (AUTO) 0.3 % (0-2); EOSINOPHILS % (AUTO) 0.7 % (0-6); HEMATOCRIT 30.7 % (37.9-51.0); HGB HCT DIFFERENCE 2.3; LYMPHOCYTES % (AUTO) 9.4 % (13-45); MEAN CORPUSCULAR HEMOGLOBIN 32.5 pg (27.0-33.4); MEAN CORPUSCULAR HGB CONC 35.8 g/dL (32.0-36.0); MEAN CORPUSCULAR VOLUME 91 fl (80-97); MONOCYTES % (AUTO) 8.2 % (3-13); RED BLOOD COUNT 3.38 10^6/uL (4.35-5.55); RED CELL DISTRIBUTION WIDTH 12.7 % (11.5-14.0); SEGMENTED NEUTROPHILS % (AUTO) 81.4 % (42-78); WHITE BLOOD COUNT 18.9 10^3/uL (4.0-10.5)
[2017-10-24 04:52] LABS: ANION GAP 7 (5-19); BLOOD UREA NITROGEN 9 mg/dL (7-20); CALCIUM 8.8 mg/dL (8.4-10.2); CARBON DIOXIDE 28 mmol/L (22-30); CHLORIDE 90 mmol/L (98-107); CREATININE RESULT 0.59 mg/dL (0.52-1.25); GLUCOSE 87 mg/dL (75-110); MAGNESIUM 1.6 mg/dL (1.6-2.3); PHOSPHORUS 3.5 mg/dL (2.5-4.5); POTASSIUM 4.5 mmol/L (3.6-5.0); SODIUM 124.6 mmol/L (137-145)
[2017-10-24] MEDS: LANSOPRAZOLE 30 MG TAB.RAP.DR PO SCH (06:32)
--- NOTE | 2017-10-24 08:19 | PDOC PROGRESS REPORT ---
Subjective Progress Note for:: 10/24/17 Subjective:: Patient states that he just woke up, but feels OK. He denies any further questions for me today. He is very anxious to go home and gets quite frustrated at hearing that he may not go home today. Reason For Visit: AFIB WITH RVR Physical Exam Vital Signs: Temp Pulse Resp BP Pulse Ox 98.7 F 82 18 128/55 H 96 10/24/17 03:23 10/24/17 03:23 10/24/17 03:23 10/24/17 03:23 10/24/17 03:23 Intake & Output 10/23/17 10/24/17 10/25/17 06:59 06:59 06:59 Intake Total 855 787 Output Total 2095 1255 Balance -1240 -468 Weight 54.7 kg 55.3 kg General appearance: PRESENT: no acute distress, thin Neurological exam: PRESENT: other - Only opens left eye. Converses without difficulty. Skin exam: PRESENT: normal color Results Laboratory Results: 10/24/17 04:12 10/24/17 04:12 10/23/17 10/23/17 10/24/17 05:01 08:15 04:12 WBC 18.9 H RBC 3.38 L Hgb 11.0 L Hct 30.7 L MCV 91 MCH 32.5 MCHC 35.8 RDW 12.7 Plt Count 204 Seg Neutrophils % 81.4 H Lymphocytes % 9.4 L Monocytes % 8.2 Eosinophils % 0.7 Basophils % 0.3 Absolute Neutrophils 15.4 H Absolute Lymphocytes 1.8 Absolute Monocytes 1.5 H Absolute Eosinophils 0.1 Absolute Basophils 0.1 Sodium Potassium Chloride Carbon Dioxide Anion Gap BUN Creatinine Est GFR ( Amer) Est GFR (Non-Af Amer) Glucose Serum Osmolality 256 L Calcium Phosphorus Magnesium TSH Urine Osmolality 330 10/24/17 10/24/17 04:12 04:12 WBC RBC Hgb Hct MCV MCH MCHC RDW Plt Count Seg Neutrophils % Lymphocytes % Monocytes % Eosinophils % Basophils % Absolute Neutrophils Absolute Lymphocytes Absolute Monocytes Absolute Eosinophils Absolute Basophils Sodium 124.6 L Potassium 4.5 Chloride 90 L Carbon Dioxide 28 Anion Gap 7 BUN 9 Creatinine 0.59 Est GFR ( Amer) > 60 Est GFR (Non-Af Amer) > 60 Glucose 87 Serum Osmolality Calcium 8.8 Phosphorus 3.5 Magnesium 1.6 TSH 1.56 Urine Osmolality 10/17/17 10/19/17 20:25 04:33 Troponin I 0.016 < 0.012 Impressions: Chest X-Ray 10/17/17 15:33 IMPRESSION: NO ACUTE RADIOGRAPHIC FINDING IN THE CHEST. Abdomen/Pelvis CT 10/18/17 00:00 IMPRESSION: No metastatic lesions identified. Chest CT 10/18/17 00:00 IMPRESSION: T11 compression fracture of undetermined chronicity. Extensive soft tissue mass in the distal 2/3 of the esophagus. No adenopathy or parenchymal masses. Assessment & Plan - Diagnosis (1) Esophageal cancer Qualifiers: Malignant neoplasm of esophagus location: lower third Qualified Code(s): C15.5 - Malignant neoplasm of lower third of esophagus Is this a current diagnosis for this admission?: Yes Plan: PET scan to be arranged as outpatient. Family will contact me with their choice of thoracic surgeon. I believe patient will need J-tube placement in preparation for aggressive treatment. However, would like for him to see thoracic surgeon for this as EUS may need to be done at same time. (2) Malnutrition Qualifiers: Malnutrition type: protein-calorie malnutrition Is this a current diagnosis for this admission?: Yes Plan: Patient and family understand that he must be stronger before aggresive treatment can begin. He is eating better. Will need PT as out patient. (3) Frequent falls Is this a current diagnosis for this admission?: Yes
[2017-10-24] MEDS: FINASTERIDE 5 MG TABLET PO SCH (10:51)
[2017-10-24] MEDS: ASPIRIN 81 MG TABLET, CHEWABLE PO SCH (10:51)
[2017-10-24] MEDS: CLOPIDOGREL BISULFATE 75 MG TABLET PO SCH (10:51)
[2017-10-24] MEDS: SODIUM CHLORIDE 1 GM TABLET PO SCH (10:51)
[2017-10-24 14:56] LABS: ANION GAP 9 (5-19); BLOOD UREA NITROGEN 11 mg/dL (7-20); CALCIUM 8.8 mg/dL (8.4-10.2); CARBON DIOXIDE 27 mmol/L (22-30); CHLORIDE 87 mmol/L (98-107); CREATININE RESULT 0.56 mg/dL (0.52-1.25); GLUCOSE 86 mg/dL (75-110); POTASSIUM 3.9 mmol/L (3.6-5.0); SODIUM 123.1 mmol/L (137-145)
--- NOTE | 2017-10-24 16:41 | PDOC PROGRESS REPORT ---
Subjective Progress Note for:: 10/24/17 Subjective:: The patient is resting in his bed. He was seen by Dr. Poole today who plans to follow him up as an outpatient for a PET scan and probable referral for an EUS. I have explained to him that I do not feel comfortable with leaving the hospital as his sodium level continues to worsen. He has been placed on a fluid restriction and I am hoping that his sodium level will improve tomorrow. I discussed all of this with him and he is in agreement with this plan. He denies fever chills. He states that he is swallowing fine and tolerating a soft diet. He is not having any shortness of breath or cough. No nausea vomiting or diarrhea. No urinary complaints. Reason For Visit: AFIB WITH RVR Physical Exam Vital Signs: Temp Pulse Resp BP Pulse Ox 97.8 F 93 18 103/49 L 95 10/24/17 15:17 10/24/17 15:17 10/24/17 15:17 10/24/17 15:17 10/24/17 15:17 Intake & Output 10/23/17 10/24/17 10/25/17 06:59 06:59 06:59 Intake Total 855 787 354 Output Total 2095 1255 600 Balance -1240 -468 -246 Weight 54.7 kg 55.3 kg General appearance: PRESENT: no acute distress, well-developed, well-nourished Head exam: PRESENT: atraumatic, normocephalic Eye exam: PRESENT: conjunctiva pink, EOMI, PERRLA. ABSENT: scleral icterus Ear exam: PRESENT: normal external ear exam Neck exam: ABSENT: carotid bruit, JVD, lymphadenopathy, thyromegaly Respiratory exam: PRESENT: clear to auscultation cally. ABSENT: rales, rhonchi, wheezes Cardiovascular exam: PRESENT: RRR. ABSENT: diastolic murmur, rubs, systolic murmur GI/Abdominal exam: PRESENT: normal bowel sounds, soft. ABSENT: distended, guarding, mass, organolmegaly, rebound, tenderness Rectal exam: PRESENT: deferred Extremities exam: PRESENT: full ROM. ABSENT: calf tenderness, clubbing, pedal edema Neurological exam: PRESENT: alert, awake, oriented to person, oriented to place , oriented to time, oriented to situation, CN II-XII grossly intact. ABSENT: motor sensory deficit Psychiatric exam: PRESENT: appropriate affect, normal mood. ABSENT: homicidal ideation, suicidal ideation Skin exam: PRESENT: dry, intact, warm. ABSENT: cyanosis, rash Results Laboratory Results: 10/24/17 04:12 10/24/17 13:43 10/24/17 10/24/17 10/24/17 04:12 04:12 04:12 WBC 18.9 H RBC 3.38 L Hgb 11.0 L Hct 30.7 L MCV 91 MCH 32.5 MCHC 35.8 RDW 12.7 Plt Count 204 Seg Neutrophils % 81.4 H Lymphocytes % 9.4 L Monocytes % 8.2 Eosinophils % 0.7 Basophils % 0.3 Absolute Neutrophils 15.4 H Absolute Lymphocytes 1.8 Absolute Monocytes 1.5 H Absolute Eosinophils 0.1 Absolute Basophils 0.1 Sodium 124.6 L Potassium 4.5 Chloride 90 L Carbon Dioxide 28 Anion Gap 7 BUN 9 Creatinine 0.59 Est GFR ( Amer) > 60 Est GFR (Non-Af Amer) > 60 Glucose 87 Calcium 8.8 Phosphorus 3.5 Magnesium 1.6 TSH 1.56 10/24/17 13:43 WBC RBC Hgb Hct MCV MCH MCHC RDW Plt Count Seg Neutrophils % Lymphocytes % Monocytes % Eosinophils % Basophils % Absolute Neutrophils Absolute Lymphocytes Absolute Monocytes Absolute Eosinophils Absolute Basophils Sodium 123.1 L Potassium 3.9 Chloride 87 L Carbon Dioxide 27 Anion Gap 9 BUN 11 Creatinine 0.56 Est GFR ( Amer) > 60 Est GFR (Non-Af Amer) > 60 Glucose 86 Calcium 8.8 Phosphorus Magnesium TSH 10/21/17 16:21 Stool - Stool - Final 10/21/17 16:21 Stool - Stool Stool Culture - Final NO SALMONELLA, SHIGELLA, CAMPYLOBACTER, OR E.COLI 0157 RECOVERED. NEGATIVE FOR SHIGA TOXINS 1&2. 10/17/17 10/19/17 20:25 04:33 Troponin I 0.016 < 0.012 Impressions: Chest X-Ray 10/17/17 15:33 IMPRESSION: NO ACUTE RADIOGRAPHIC FINDING IN THE CHEST. Abdomen/Pelvis CT 10/18/17 00:00 IMPRESSION: No metastatic lesions identified. Chest CT 10/18/17 00:00 IMPRESSION: T11 compression fracture of undetermined chronicity. Extensive soft tissue mass in the distal 2/3 of the esophagus. No adenopathy or parenchymal masses. Assessment & Plan - Diagnosis (1) Squamous cell carcinoma in situ Plan: He will follow-up with oncology as an outpatient. He will need further workup and a PET scan. So far he is swallowing just fine. (2) Dysphagia Qualifiers: Dysphagia type: esophageal phase Qualified Code(s): R13.10 - Dysphagia, unspecified Is this a current diagnosis for this admission?: Yes Plan: Continue modified diet (3) Atrial fibrillation with rapid ventricular response Plan: Resolved (4) Moderate protein-calorie malnutrition Plan: I have encouraged the use of supplements. 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 The patient's fasting cortisol level and TSH was normal. I am going to place him on 1000 mL fluid restriction. We will check a chemistry panel in the morning. (6) Occult blood in stools Is this a current diagnosis for this admission?: Yes Plan: Likely secondary to underlying malignancy. (7) Frequent falls Is this a current diagnosis for this admission?: Yes Plan: He will likely be discharged home with home health physical therapy and occupational therapy. (8) Hypokalemia Is this a current diagnosis for this admission?: Yes Plan: Repleted (9) Hypomagnesemia Is this a current diagnosis for this admission?: Yes Plan: Repleted (10) Anemia Plan: Quite stable. Likely related to chronic dizziness as well as slow GI blood losses. - Time Time Spent with patient: 15-24 minutes - Inpatient Certification Medical Necessity: Other - Inpatient hospitalization remains necessary. The patient has worsening hyponatremia. I did not feel comfortable sending him home at these levels. He will remain in the hospital on a fluid restriction and will check a chemistry panel in the morning.
[2017-10-24] MEDS: LORAZEPAM INJ 2 MG/1 ML VIAL IV PRN (23:06)
[2017-10-25] MEDS: LANSOPRAZOLE 30 MG TAB.RAP.DR PO SCH (05:02)
--- NOTE | 2017-10-25 08:39 | RADIOLOGY REPORT (SQ) ---
EXAM DESCRIPTION: CHEST PA/LAT COMPLETED DATE/TIME: 10/25/2017 8:26 am REASON FOR STUDY: Leukocytosis, fever, ? aspiration COMPARISON: None. EXAM PARAMETERS: NUMBER OF VIEWS: two views TECHNIQUE: Digital Frontal and Lateral radiographic views of the chest acquired. RADIATION DOSE: NA LIMITATIONS: none FINDINGS: LUNGS AND PLEURA: Minimal left basilar density and blunting of the left costophrenic angle . Right lung clear. MEDIASTINUM AND HILAR STRUCTURES: No masses or contour abnormalities. HEART AND VASCULAR STRUCTURES: Heart normal size. No evidence for failure. BONES: No acute findings. HARDWARE: None in the chest. OTHER: No other significant finding. IMPRESSION: MINIMAL LEFT BASILAR ATELECTASIS VERSUS FAINT INFILTRATE AND PROBABLE SMALL PLEURAL EFFU ALIYA. TECHNICAL DOCUMENTATION: JOB ID: [id number] [employer]- All Rights Reserved
--- NOTE | 2017-10-25 09:08 | EKG REPORT ---
SEVERITY:- OTHERWISE NORMAL ECG - SINUS TACHYCARDIA : Confirmed by: Rhonda Wagoner 25-Oct-2017 09:07:41
[2017-10-25] MEDS: CLOPIDOGREL BISULFATE 75 MG TABLET PO SCH (09:34)
[2017-10-25] MEDS: FINASTERIDE 5 MG TABLET PO SCH (09:34)
[2017-10-25] MEDS: ASPIRIN 81 MG TABLET, CHEWABLE PO SCH (09:34)
[2017-10-25] MEDS: METOPROLOL TARTRATE 25 MG TABLET PO SCH ×2 (09:35→22:20)
[2017-10-25 10:44] LABS: ANION GAP 8 (5-19); BLOOD UREA NITROGEN 10 mg/dL (7-20); CALCIUM 9.1 mg/dL (8.4-10.2); CARBON DIOXIDE 24 mmol/L (22-30); CHLORIDE 89 mmol/L (98-107); CREATININE RESULT 0.57 mg/dL (0.52-1.25); GLUCOSE 107 mg/dL (75-110); MAGNESIUM 1.3 mg/dL (1.6-2.3); POTASSIUM 3.9 mmol/L (3.6-5.0)
[2017-10-25 10:49] LABS: HEMATOCRIT 30.8 % (37.9-51.0); HGB HCT DIFFERENCE 2.2; MEAN CORPUSCULAR HEMOGLOBIN 31.9 pg (27.0-33.4); MEAN CORPUSCULAR HGB CONC 35.6 g/dL (32.0-36.0); MEAN CORPUSCULAR VOLUME 90 fl (80-97); RED BLOOD COUNT 3.43 10^6/uL (4.35-5.55); RED CELL DISTRIBUTION WIDTH 12.5 % (11.5-14.0); WHITE BLOOD COUNT 26.3 10^3/uL (4.0-10.5)
[2017-10-25 11:05] LABS: SODIUM 120.6 mmol/L (137-145)
[2017-10-25] MEDS ORDERED: NORMAL SALINE 1000 ML 1,000 ML IV PRN (11:07)
[2017-10-25 11:11] LABS: BASOPHILS % (MANUAL) 0 % (0-2); EOSINOPHILS % (MANUAL) 0 % (0-6); LYMPHOCYTES % (MANUAL) 3 % (13-45); TOTAL CELLS COUNTED 100
[2017-10-25 11:12] LABS: RBC MORPHOLOGY COMMENT NORMO-CYTIC/CHROMIC; TOXIC GRANULATION 1+
[2017-10-25] MEDS ORDERED: ENOXAPARIN SODIUM INJ 40 MG/0.4 ML DISP.SYRIN SUBCUT ONE (13:00)
[2017-10-25] MEDS: MAGNESIUM SULFATE/D5W 1 GM/100 ML RTUPB IV SCH ×2 (13:12→16:42)
[2017-10-25] MEDS ORDERED: VANCOMYCIN HCL 0 MG in DEXTROSE 5%-WATER 250 ML IV NR (14:30)
--- NOTE | 2017-10-25 14:56 | PDOC PROGRESS REPORT ---
Subjective Progress Note for:: 10/25/17 Subjective:: Patient continues to have hyponatremia. He also has an elevated white count that may be suggestive of possible aspiration. Oncology has seen him and made some recommendations. I am not sure patient would be able to be discharged given some of his multiple problems. He seems to be eating better and swallowing without difficulty; but at some point his esophageal malignancy will cause an obstruction. There is a possibility that he may have a fistula. I am still recommending either EUS for documentation versus possible stent placement/PEG placement at the same time at a tertiary institution. His original chest CT was negative on admission. However with his hyponatremia question of whether he may have a pulmonary malignancy does yet been undiagnosed. Apparently inpatient PET scan is not available. Reason For Visit: AFIB WITH RVR Physical Exam Vital Signs: Temp Pulse Resp BP Pulse Ox 98.2 F 91 16 92/49 L 97 10/25/17 11:52 10/25/17 11:52 10/25/17 11:52 10/25/17 11:52 10/25/17 11:52 Intake & Output 10/24/17 10/25/17 10/26/17 06:59 06:59 06:59 Intake Total 787 733 118 Output Total 1255 1530 225 Balance -468 -797 -107 Weight 55.3 kg 54.7 kg General appearance: PRESENT: no acute distress, thin Head exam: PRESENT: atraumatic, normocephalic Eye exam: PRESENT: EOMI, PERRLA. ABSENT: nystagmus, periorbital swelling, scleral icterus Mouth exam: PRESENT: moist, neck supple Throat exam: ABSENT: tonsillar exudate, tonsillogmegaly Neck exam: ABSENT: meningismus, tenderness, thyromegaly Respiratory exam: PRESENT: tachypnea. ABSENT: symmetrical, unlabored, wheezes Cardiovascular exam: PRESENT: RRR, +S1, +S2 GI/Abdominal exam: PRESENT: soft. ABSENT: rebound, rigid, tenderness Extremities exam: ABSENT: joint swelling Musculoskeletal exam: PRESENT: full ROM Neurological exam: PRESENT: oriented to time, oriented to situation, CN II-XII grossly intact Focused psych exam: ABSENT: restlessness Skin exam: PRESENT: normal color. ABSENT: mottled, pallor, urticaria, vesicles Results Laboratory Results: 10/25/17 09:23 10/25/17 09:23 10/24/17 10/25/17 10/25/17 13:43 09:23 09:23 WBC 26.3 H RBC 3.43 L Hgb 11.0 L Hct 30.8 L MCV 90 MCH 31.9 MCHC 35.6 RDW 12.5 Plt Count 238 Seg Neutrophils % Not Reportable Lymphocytes % Not Reportable Monocytes % Not Reportable Eosinophils % Not Reportable Basophils % Not Reportable Absolute Neutrophils Not Reportable Absolute Lymphocytes Not Reportable Absolute Monocytes Not Reportable Absolute Eosinophils Not Reportable Absolute Basophils Not Reportable Sodium 123.1 L 120.6 L* Potassium 3.9 3.9 Chloride 87 L 89 L Carbon Dioxide 27 24 Anion Gap 9 8 BUN 11 10 Creatinine 0.56 0.57 Est GFR ( Amer) > 60 > 60 Est GFR (Non-Af Amer) > 60 > 60 Glucose 86 107 Calcium 8.8 9.1 Magnesium 1.3 L 10/21/17 16:21 Stool - Stool Ova and Parasite Concentrate Exam - Final 10/21/17 16:21 Stool - Stool Ova and Parasites - Final 10/17/17 10/19/17 10/25/17 20:25 04:33 09:23 Troponin I 0.016 < 0.012 NT-Pro-B Natriuret Pep 1580 H Impressions: Abdomen/Pelvis CT 10/18/17 00:00 IMPRESSION: No metastatic lesions identified. Chest CT 10/18/17 00:00 IMPRESSION: T11 compression fracture of undetermined chronicity. Extensive soft tissue mass in the distal 2/3 of the esophagus. No adenopathy or parenchymal masses. Chest X-Ray 10/25/17 00:00 IMPRESSION: MINIMAL LEFT BASILAR ATELECTASIS VERSUS FAINT INFILTRATE AND PROBABLE SMALL PLEURAL EFFUSION. Assessment & Plan - Diagnosis (2) Dysphagia Qualifiers: Dysphagia type: esophageal phase Qualified Code(s): R13.10 - Dysphagia, unspecified Is this a current diagnosis for this admission?: Yes Plan: Esophageal biopsy showing squamous cell carcinoma. At this point oncology has evaluated him. It is unclear what the overall plan is by suspect that he will need PET scan, endoscopic ultrasound. Depending on resectability he will need to be at a tertiary institution with the cardiothoracic service. However palliative means would mean an esophageal stent placement with possible PEG tube for nutrition. Given his hyponatremia, most suspicions are for possible lung primary. It is unclear why his original chest CT was negative. He continues to swallow well but cannot be discharged. Nephrology has been consulted. We will continue to follow the patient.
--- NOTE | 2017-10-25 16:14 | RADIOLOGY REPORT (SQ) ---
EXAM DESCRIPTION: CTA CHEST COMPLETED DATE/TIME: 10/25/2017 3:54 pm REASON FOR STUDY: elevated ddimer, tachycardia, leukocyosis. ?pna COMPARISON: Chest x-ray 10/25/2017 CT 10/18/2017 TECHNIQUE: CT scan of the chest performed using helical scanning technique with dynamic intravenous contrast injection. Images reviewed with lung, soft tissue and bone windows. Reconstructed coronal and sagittal MPR images reviewed. Additional 3 dimensional post-processing performed to develop Maximal Intensity Projection images (IL P). All images stored on PACS. All CT scanners at this facility use dose modulation, iterative reconstruction, and/or weight based d osing when appropriate to reduce radiation dose to as low as reasonably achievable (ALARA). [facility]: Dose Right [facility]: CareDose [facility]: Dose Right [facility]: Teradose 4D [facility]: [employer] CONTRAST TYPE AND DOSE: contrast/concentration: Isovue 370.00 mg/ml; Total Contrast Delivered: 58.0 ml; Total Saline Delivered: 81.6 ml Contrast bolus optimized for the pulmonary arteries. Not diagnostic for the aorta. RENAL FUNCTION: Not recorded here. RADIATION DOSE: CT Rad equipment meets quality standard of care and radiation dose reduction techniq ues were employed. CTDIvol: 8.3 - 9.4 mGy. DLP: 314 mGy-cm. . LIMITATIONS: None. FINDINGS: LUNGS AND PLEURA: There is a minimal left pleural effusion. No infiltrate or mass. AORTA AND GREAT VESSELS: No aneurysm. Contrast bolus not optimized for the aorta. HEART: No pericardial effusion. PULMONARY ARTERIES: No emboli visualized in the main pulmonary arteries or the segmental branches. HILAR AND MEDIASTINAL STRUCTURES: There is an esophageal mass versus hiatal hernia extending from the level of the loretta inferiorly. HARDWARE: None in the chest. UPPER ABDOMEN: No significant findings. Limited exam. THYROID AND OTHER SOFT TISSUES: No masses. No adenopathy. BONES: Compression changes at T11. 3D MIPS: Confirm above findings. OTHER: No other significant finding. IMPRESSION: 1. There is no evidence of pulmonary emboli. 2. Esophageal mass versus hiatal hernia. GI consultation recommended. COMMENT: Quality ID # [id number]: Final reports with documentation of one or more dose reduction techniques (e.g., Automated exposure control, adjustment of the mA and/or kV according to patient size, use of iterative reconstruction technique) TECHNICAL DOCUMENTATION: JOB ID: [id number] [facility] [employer]- All Rights Reserved
[2017-10-25] MEDS: MEROPENEM 1 GM in NORMAL SALINE 50 ML IV SCH ×2 (16:35→22:21)
[2017-10-25 16:51] LABS: ANION GAP 9 (5-19); BLOOD UREA NITROGEN 10 mg/dL (7-20); CALCIUM 8.5 mg/dL (8.4-10.2); CARBON DIOXIDE 25 mmol/L (22-30); CHLORIDE 87 mmol/L (98-107); CREATININE RESULT 0.59 mg/dL (0.52-1.25); GLUCOSE 115 mg/dL (75-110); POTASSIUM 3.8 mmol/L (3.6-5.0)
[2017-10-25 17:11] LABS: SODIUM 120.5 mmol/L (137-145)
[2017-10-25] MEDS ORDERED: NORMAL SALINE 1000 ML 1,000 ML IV ONE (17:23)
--- NOTE | 2017-10-25 17:37 | PDOC PROGRESS REPORT ---
Subjective Progress Note for:: 10/25/17 Subjective:: When I saw the patient today he is sitting up in the bed. He is awake alert and oriented 3. He has no complaints at all other than feeling somewhat weak. He denies fever chills. No chest pain, shortness of breath or heart palpitations. No nausea, vomiting or diarrhea. He does not have much of an appetite. No urinary complaints. Unfortunately the patient's sodium level continues to worsen. He has worsening leukocytosis and he has become hypotensive this afternoon. He ran low-grade fevers overnight. The nephrology service has been consulted to assist with his hyponatremia and we look forward to her input. Reason For Visit: AFIB WITH RVR Physical Exam Vital Signs: Temp Pulse Resp BP Pulse Ox 98.0 F 96 18 88/60 L 99 10/25/17 15:20 10/25/17 15:20 10/25/17 15:20 10/25/17 15:20 10/25/17 15:20 Intake & Output 10/24/17 10/25/17 10/26/17 06:59 06:59 06:59 Intake Total 787 733 118 Output Total 1255 1530 225 Balance -468 -797 -107 Weight 55.3 kg 54.7 kg General appearance: PRESENT: no acute distress, thin, other - Somewhat ill- appearing Head exam: PRESENT: atraumatic, normocephalic Ear exam: PRESENT: normal external ear exam Mouth exam: PRESENT: moist, tongue midline Neck exam: ABSENT: carotid bruit, JVD, lymphadenopathy, thyromegaly Respiratory exam: PRESENT: clear to auscultation cally. ABSENT: rales, rhonchi, wheezes Cardiovascular exam: PRESENT: RRR. ABSENT: diastolic murmur, rubs, systolic murmur Vascular exam: PRESENT: normal capillary refill GI/Abdominal exam: PRESENT: normal bowel sounds, soft. ABSENT: distended, guarding, mass, organolmegaly, rebound, tenderness Rectal exam: PRESENT: deferred Extremities exam: PRESENT: full ROM. ABSENT: calf tenderness, clubbing, pedal edema Neurological exam: PRESENT: alert, awake, oriented to person, oriented to place , oriented to time, oriented to situation, CN II-XII grossly intact. ABSENT: motor sensory deficit Psychiatric exam: PRESENT: appropriate affect, normal mood. ABSENT: homicidal ideation, suicidal ideation Skin exam: PRESENT: dry, intact, warm. ABSENT: cyanosis, rash Results Laboratory Results: 10/25/17 09:23 10/25/17 16:00 10/25/17 10/25/17 10/25/17 09:23 09:23 16:00 WBC 26.3 H RBC 3.43 L Hgb 11.0 L Hct 30.8 L MCV 90 MCH 31.9 MCHC 35.6 RDW 12.5 Plt Count 238 Seg Neutrophils % Not Reportable Lymphocytes % Not Reportable Monocytes % Not Reportable Eosinophils % Not Reportable Basophils % Not Reportable Absolute Neutrophils Not Reportable Absolute Lymphocytes Not Reportable Absolute Monocytes Not Reportable Absolute Eosinophils Not Reportable Absolute Basophils Not Reportable Sodium 120.6 L* 120.5 L* Potassium 3.9 3.8 Chloride 89 L 87 L Carbon Dioxide 24 25 Anion Gap 8 9 BUN 10 10 Creatinine 0.57 0.59 Est GFR ( Amer) > 60 > 60 Est GFR (Non-Af Amer) > 60 > 60 Glucose 107 115 H Calcium 9.1 8.5 Magnesium 1.3 L 10/21/17 16:21 Stool - Stool Ova and Parasite Concentrate Exam - Final 10/21/17 16:21 Stool - Stool Ova and Parasites - Final 10/17/17 10/19/17 10/25/17 20:25 04:33 09:23 Troponin I 0.016 < 0.012 NT-Pro-B Natriuret Pep 1580 H Impressions: Abdomen/Pelvis CT 10/18/17 00:00 IMPRESSION: No metastatic lesions identified. Chest CT 10/18/17 00:00 IMPRESSION: T11 compression fracture of undetermined chronicity. Extensive soft tissue mass in the distal 2/3 of the esophagus. No adenopathy or parenchymal masses. Chest X-Ray 10/25/17 00:00 IMPRESSION: MINIMAL LEFT BASILAR ATELECTASIS VERSUS FAINT INFILTRATE AND PROBABLE SMALL PLEURAL EFFUSION. Chest/Abdomen CTA 10/25/17 00:00 IMPRESSION: 1. There is no evidence of pulmonary emboli. 2. Esophageal mass versus hiatal hernia. GI consultation recommended. Assessment & Plan - Diagnosis (1) Hyponatremia Plan: The patient has worsening hyponatremia. Initially he was placed on sodium chloride tablets. I stopped these [address] the patient on a fluid restriction. In spite of this the patient's sodium is continued to worsen. 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 I spoke to nephrology today. There were some concerns that the patient may be volume depleted and he was started on normal saline. On exam the patient's oral mucosa was quite moist and he did not seem particularly dry. Chemistry panels are being obtained every 4 hours. A repeat chemistry panel this afternoon reveals a sodium level of 120.5 which is minimally down from when it was last checked. Nephrology will see the patient this afternoon we certainly look forward to her input. (2) Sepsis Plan: The patient has developed evidence of sepsis. He has worsening, marketed leukocytosis. He has become hypotensive this afternoon. It is quite clear he has an infection of some sort. He is borderline tachycardic this afternoon and he ran a low-grade fever overnight. At this point he has a bacterial infection of unknown origin. The most likely source is respiratory as he does have an esophageal mass and presented with some dysphasia. He is going to receive an IV fluid bolus this afternoon. He has empirically been started on broad- spectrum antibiotics with IV vancomycin and says meropenem for presumed pneumonia. Blood cultures 2 will be obtained as well as a UA and urine culture. The patient did have a CT angiography of the chest which ruled out pulmonary embolus. It did not reveal an underlying pneumonia. At this point the source of his sepsis symptoms is unknown. (3) Bacterial infection Plan: I believe the patient has a bacterial infection of unknown origin. At this point the source is unclear. Blood cultures and urine culture will be obtained. He has been started on broad-spectrum IV antibiotics with IV vancomycin and meropenem. This will be the first day of treatment. We will have a CBC and a chemistry panel drawn in the morning. (4) Squamous cell carcinoma in situ Plan: He will follow-up with oncology as an outpatient. He will need further workup and a PET scan. So far he is swallowing just fine. He will continue a soft diet. (5) Dysphagia Qualifiers: Dysphagia type: esophageal phase Qualified Code(s): R13.10 - Dysphagia, unspecified Is this a current diagnosis for this admission?: Yes Plan: Continue modified diet (6) Atrial fibrillation with rapid ventricular response Plan: Resolved (8) Occult blood in stools Is this a current diagnosis for this admission?: Yes (9) Frequent falls Is this a current diagnosis for this admission?: Yes (10) Hypokalemia Is this a current diagnosis for this admission?: Yes Plan: Repleted (11) Hypomagnesemia Is this a current diagnosis for this admission?: Yes Plan: His level was quite low today. He is receiving magnesium sulfate today. He will have a magnesium level drawn in the morning. (12) Anemia Plan: Quite stable. Likely related to chronic dizziness as well as slow GI blood losses. - Time Time Spent with patient: 35 or more minutes - Inpatient Certification Based on my medical assessment, after consideration of the patient's comorbidities, presenting symptoms, or acuity I expect that the services needed warrant INPATIENT care.: Yes I certify that my determination is in accordance with my understanding of Medicare's requirements for reasonable and necessary INPATIENT services [42 CFR 412.3e].: Yes Medical Necessity: Need Close Monitoring Due to Risk of Patient Decompensation, Need For IV Fluids - Inpatient hospitalization remains necessary. The patient seems to be developing a septic picture. He has a bacterial infection of unknown origin at this point. He has worsening hyponatremia and needs evaluation by nephrology. Timing of disposition will be determined by his clinical
[2017-10-25] MEDS: VANCOMYCIN HCL 1,000 MG in DEXTROSE 5%-WATER 250 ML IV SCH (18:34)
[2017-10-25] MEDS ORDERED: MAGNESIUM SULFATE/D5W 1 GM/100 ML RTUPB IV ONE (19:00)
[2017-10-25 20:20] LABS: APPEARANCE,URINE CLEAR; BILIRUBIN,URINE NEGATIVE (NEGATIVE); GLUCOSE, URINE NEGATIVE (NEGATIVE); KETONES,URINE NEGATIVE (NEGATIVE); LEUKOCYTE ESTERASE,URINE NEGATIVE (NEGATIVE); NITRITE,URINE NEGATIVE (NEGATIVE); PROTEIN,URINE NEGATIVE (NEGATIVE); URINE SPECIFIC GRAVITY 1.027; UROBILINOGEN,URINE NEGATIVE mg/dL (<2.0)
[2017-10-25 20:34] LABS: BLOOD UREA NITROGEN 10 mg/dL (7-20); CALCIUM 8.2 mg/dL (8.4-10.2); CARBON DIOXIDE 25 mmol/L (22-30); CHLORIDE 89 mmol/L (98-107); CREATININE RESULT 0.57 mg/dL (0.52-1.25); GLUCOSE 100 mg/dL (75-110); POTASSIUM 4.2 mmol/L (3.6-5.0)
[2017-10-25 20:44] LABS: ANION GAP 6 (5-19)
--- NOTE | 2017-10-25 20:46 | PDOC CONSULTATION ---
Consultation Consult Date: 10/25/17 Attending physician:: APRIL MICHELLE Consult reason:: I was asked by April ORTIZ to see the patient because of severe hyponatremia. History of Present Illness Admission Date/PCP: 10/17/17 17:32 JEROME WICK DO History of Present Illness: ADAM ZELAYA is a 77 year old white male with a past medical history of chronic atrial fibrillation, history of esophageal web status post dilation in the past, hypertension and dyslipidemia who presents with complaints of palpitations. According to the patient and his , he has a history of esophageal webs. The patient presented to his primary care physician, Dr. Wick. At that time he was found to be tachycardic. He was sent over to the hospital and found to have a rate of 154 on arrival. The patient states that he is not been able to take any of his home medications because of choking with swallowing. The patient chokes with both liquids and solids and has not been drinking very well either. In the emergency room he was found to have a low sodium of 128. He was tachycardic up to 154. He was given a dose of IV metoprolol. At home he usually takes metoprolol as for rate control. Her pulse rate came down to a range between 90-120. The patient admits to feelings of palpitations during activity. He denies any chest pain, shortness of breath , nausea or vomiting. 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 Currently the patient said that he is able to swallow able to eat soft foods in can take his crushed tablets. Currently he denies any pain except if he needs to swallow a bulky food. He otherwise denies any chest pains, shortness of breath nor cough. He tells me he feels fine. In terms of his tachycardia that seems to be fairly controlled at this time. The patient came in his sodium level was 128 and stays around this level with a high sodium of 129 on October 20. On October 22 it was 126 and for the last 3 days he has continuously gone down up to this point with a level of 120.5 today. Patient had received IV normal saline for a couple of days during the first few days of admission followed by some salt tablets which is currently discontinued and did not seem to work. He was also placed on water restriction but for the last few days nothing seems to work. Currently restarted IV fluids with normal saline is to see if he is going to respond to it. Previous workup of hyponatremia showed a normal TSH and cortisol levels. His serum osmolality was obviously low at 256 with inappropriately elevated urine osmolality of 330 and urine sodium of 125. Patient is producing more than adequate urine output. From records of I and O it seems like his negative at least 3500 mL. He does have urinary frequency and he admits he has this urge to go to the bathroom at least every 30 minutes. He denies any prostate problems that he is aware off but he admits that he cannot remember all his medical history. He tells me that his urinary frequency has been a problem for quite some time but could not tell me how long. Past Medical History Cardiac Medical History: Reports: Atrial Fibrillation, Hyperlipidemia EENT Medical History: Reports: Other - Glaucoma in the right eye Renal/ Medical History: Reports: Benign Prostatic Hyperplasia GI Medical History: Reports: Gastroesophageal Reflux Disease, Other - Esophageal web status post dilation Musculoskeltal Medical History: Reports: Arthritis Psychiatric Medical History: Reports: Post Traumatic Stress Disorder Past Surgical History Past Surgical History: Reports: Orthopedic Surgery - Left Achilles tendon repair. Status post bilateral ankle fractures., Other - Cataracts, spinal surgery, EGDs. Social History Information Source: [facility] Records Lives with: Spouse/Significant other Smoking Status: Former Smoker Number of Years Smokin Last Time Smoked: 1985 Frequency of Alcohol Use: Occasional - Patient consumes 1-2 wine nightly with meals. Hx Recreational Drug Use: No Drugs: None Hx Prescription Drug Abuse: No - Advance Directive Resuscitation Status: Do Not Resuscitate Family History Family History: Reviewed & Not Pertinent Parental Family History Reviewed: Yes Children Family History Reviewed: Yes Sibling(s) Family History Reviewed.: Yes Medication/Allergy Home Medications: Aspirin [Aspirin EC] 81 mg PO DAILY 10/18/17 Clopidogrel Bisulfate [Plavix 75 mg Tablet] 75 mg PO DAILY 10/18/17 Cyanocobalamin (Vitamin B-12) [Vitamin B-12] 1,000 mcg PO DAILY 10/18/17 Docusate Sodium [Colace 100 mg Capsule] 100 mg PO DAILYP PRN 10/18/17 Finasteride [Proscar 5 mg Tablet] 5 mg PO DAILY 10/18/17 Magnesium Oxide [Mag-Ox 400 mg Tablet] 800 mg PO DAILY 10/18/17 Metoprolol Succinate [Toprol Xl 50 mg Tab.sr] 50 mg PO DAILY 10/18/17 Pantoprazole Sodium [Protonix] 40 mg PO DAILY 10/18/17 Prazosin HCl [Minipress] 1 mg PO QHS 10/18/17 Tramadol HCl [Ultram 50 mg Tablet] 50 mg PO DAILY 10/18/17 Trazodone HCl [Desyrel] 100 mg PO QHS 10/18/17 Valsartan [Diovan 160 mg Tablet] 160 mg PO DAILY 10/18/17 Allergies/Adverse Reactions: cyclobenzaprine HCl [From Flexeril] Allergy (Intermediate, Verified 05/06/15 08: 05) Hallucinations oxycodone HCl [From Percocet] Allergy (Intermediate, Verified 05/06/15 08:05) Hallucinations hydrocodone bitartrate [From Vicodin] Adverse Reaction (Severe, Verified 08:05) Hallucinations Review of Systems All systems: reviewed and no additional remarkable complaints except as stated Review of Systems: Constitutional: ABSENT: chills, fatigue, fever(s), headache(s), weight gain, weight loss Eyes: ABSENT: visual disturbances Ears: ABSENT: hearing changes Cardiovascular: ABSENT: chest pain, dyspnea on exertion, edema, orthropnea, palpitations Respiratory: ABSENT: cough, dyspnea, hemoptysis Gastrointestinal: ABSENT: abdominal pain, constipation, diarrhea, hematemesis, hematochezia, nausea, vomiting; admits mild dysphagia and swallowing bulky foods Genitourinary: ABSENT: dysuria, hematuria; admits urinary frequency Musculoskeletal: ABSENT: joint swelling Integumentary: ABSENT: rash, wounds Neurological: ABSENT: abnormal gait, abnormal speech, confusion, dizziness, focal weakness, numbness, syncope Psychiatric: ABSENT: anxiety, depression Endocrine: ABSENT: cold intolerance, heat intolerance, polydipsia, polyuria Hematologic/Lymphatic: ABSENT: easy bleeding, easy bruising, lymphadenopathy Physical Exam Vital Signs: Temp Pulse Resp BP Pulse Ox 98.0 F 117 H 18 100/61 99 10/25/17 15:20 10/25/17 19:00 10/25/17 15:20 10/25/17 20:00 10/25/17 15:20 Intake & Output 10/24/17 10/25/17 10/26/17 06:59 06:59 06:59 Intake Total 503 380 3216 Output Total 7522 1530 525 Balance -468 -797 1043 Weight 55.3 kg 54.7 kg Exam: General appearance: no acute distress, cooperative, well-developed, well- nourished Head exam: PRESENT: atraumatic, normocephalic Eye exam: PRESENT: Conjunctiva slightly pale, EOMI, PERRLA. ABSENT: conjunctival injection, scleral icterus Mouth exam: PRESENT: moist, neck supple, tongue midline Neck exam: PRESENT: full ROM. ABSENT: carotid bruit, JVD, lymphadenopathy, thyromegaly Respiratory exam: PRESENT: clear to auscultation bilaterally. ABSENT: rales, rhonchi, stridor, wheezes Cardiovascular exam: PRESENT: Irregularly irregular, +S1, +S2. ABSENT: systolic murmur Pulses: PRESENT: normal radial pulses, normal dorsalis pedis pulses GI/Abdominal exam: PRESENT: normal bowel sounds, soft. ABSENT: guarding, mass, tenderness Rectal exam: deferred Extremities exam: PRESENT: full ROM. ABSENT: calf tenderness, pedal edema Musculoskeletal: PRESENT: full ROM. ABSENT: deformity Neurological exam: PRESENT: alert, Awake, Oriented to person, Oriented to place , Oriented to time, reflexes normal, CN II-XII grossly intact. ABSENT: motor sensory deficit Psychiatric exam: PRESENT: appropriate affect, normal mood. ABSENT: homicidal ideation, suicidal ideation Skin exam: PRESENT: intact, dry, warm. ABSENT: rash Results Laboratory Results: 10/25/17 09:23 10/25/17 10/25/17 10/25/17 09:23 09:23 16:00 WBC 26.3 H RBC 3.43 L Hgb 11.0 L Hct 30.8 L MCV 90 MCH 31.9 MCHC 35.6 RDW 12.5 Plt Count 238 Seg Neutrophils % Not Reportable Lymphocytes % Not Reportable Monocytes % Not Reportable Eosinophils % Not Reportable Basophils % Not Reportable Absolute Neutrophils Not Reportable Absolute Lymphocytes Not Reportable Absolute Monocytes Not Reportable Absolute Eosinophils Not Reportable Absolute Basophils Not Reportable Sodium 120.6 L* 120.5 L* Potassium 3.9 3.8 Chloride 89 L 87 L Carbon Dioxide 24 25 Anion Gap 8 9 BUN 10 10 Creatinine 0.57 0.59 Est GFR ( Amer) > 60 > 60 Est GFR (Non-Af Amer) > 60 > 60 Glucose 107 115 H Calcium 9.1 8.5 Magnesium 1.3 L 10/21/17 16:21 Stool - Stool Ova and Parasite Concentrate Exam - Final 10/21/17 16:21 Stool - Stool Ova and Parasites - Final 10/17/17 10/19/17 10/25/17 20:25 04:33 09:23 Troponin I 0.016 < 0.012 NT-Pro-B Natriuret Pep 1580 H Impressions: Abdomen/Pelvis CT 10/18/17 00:00 IMPRESSION: No metastatic lesions identified. Chest CT 10/18/17 00:00 IMPRESSION: T11 compression fracture of undetermined chronicity. Extensive soft tissue mass in the distal 2/3 of the esophagus. No adenopathy or parenchymal masses. Chest X-Ray 10/25/17 00:00 IMPRESSION: MINIMAL LEFT BASILAR ATELECTASIS VERSUS FAINT INFILTRATE AND PROBABLE SMALL PLEURAL EFFUSION. Chest/Abdomen CTA 10/25/17 00:00 IMPRESSION: 1. There is no evidence of pulmonary emboli. 2. Esophageal mass versus hiatal hernia. GI consultation recommended. Assessment & Plan - Diagnosis (1) Hyponatremia Is this a current diagnosis for this admission?: Yes Plan: Previous workup of her hyponatremia is still high likelihood of SIADH. With the current diagnosis of squamous cell carcinoma of the esophagus there was a question if there is another unknown primary site. Malignancy can also cause SIADH. Patient seems to be euvolemic except that he has some hypotension today. This hypotension can either be indicative of relative hypovolemia versus impending sepsis associated with leukocytosis. I will repeat another stat BMP this evening. If the sodium level is not improved with ongoing IV normal saline I will give the patient a trial of Tolvaptan tonight. (2) SIADH (syndrome of inappropriate ADH production) Is this a current diagnosis for this admission?: Yes (3) Esophageal cancer Qualifiers: Malignant neoplasm of esophagus location: lower third Qualified Code(s): C15.5 - Malignant neoplasm of lower third of esophagus Is this a current diagnosis for this admission?: Yes (4) Squamous cell carcinoma in situ Is this a current diagnosis for this admission?: Yes (5) Anemia Is this a current diagnosis for this admission?: Yes (6) Atrial fibrillation Is this a current diagnosis for this admission?: Yes (7) Leukocytosis Is this a current diagnosis for this admission?: Yes - Notes Notes: Thank you very much for this consultation. I will follow the patient with you. - Time Time Spent: 50 to 70 Minutes
[2017-10-25 20:57] LABS: SODIUM 120.4 mmol/L (137-145)
[2017-10-25] MEDS ORDERED: TOLVAPTAN 15 MG TABLET PO SCH (22:00)
[2017-10-26] MEDS ORDERED: MAGNESIUM SULFATE/D5W 0 GM/0 ML RTUPB IV ONE (00:28)
[2017-10-26] MEDS: VANCOMYCIN HCL 1,000 MG in DEXTROSE 5%-WATER 250 ML IV SCH ×2 (03:37→16:58)
[2017-10-26] MEDS: MEROPENEM 1 GM in NORMAL SALINE 50 ML IV SCH ×3 (05:18→21:06)
[2017-10-26] MEDS: LANSOPRAZOLE 30 MG TAB.RAP.DR PO SCH (05:18)
[2017-10-26 05:41] LABS: ABSOLUTE BASOPHILS # (AUTO) 0.1 10^3/uL (0.0-0.2); ABSOLUTE EOSINOPHILS # (AUTO) 0.1 10^3/uL (0.0-0.6); ABSOLUTE LYMPHOCYTES (AUTO) 1.4 10^3/uL (0.5-4.7); ABSOLUTE MONOCYTES (AUTO) 1.4 10^3/uL (0.1-1.4); ABSOLUTE NEUT (AUTO) 15.2 10^3/uL (1.7-8.2); BASOPHILS % (AUTO) 0.3 % (0-2); EOSINOPHILS % (AUTO) 0.6 % (0-6); HEMATOCRIT 30.8 % (37.9-51.0); HEMOGLOBIN 11.2 g/dL (13.5-17.0); HGB HCT DIFFERENCE 2.8; LYMPHOCYTES % (AUTO) 7.8 % (13-45); MEAN CORPUSCULAR HEMOGLOBIN 32.8 pg (27.0-33.4); MEAN CORPUSCULAR HGB CONC 36.2 g/dL (32.0-36.0); MEAN CORPUSCULAR VOLUME 91 fl (80-97); MONOCYTES % (AUTO) 7.8 % (3-13); RED BLOOD COUNT 3.41 10^6/uL (4.35-5.55); RED CELL DISTRIBUTION WIDTH 12.5 % (11.5-14.0); SEGMENTED NEUTROPHILS % (AUTO) 83.5 % (42-78); WHITE BLOOD COUNT 18.1 10^3/uL (4.0-10.5)
[2017-10-26 06:08] LABS: ANION GAP 7 (5-19); BLOOD UREA NITROGEN 7 mg/dL (7-20); CALCIUM 8.8 mg/dL (8.4-10.2); CARBON DIOXIDE 26 mmol/L (22-30); CHLORIDE 93 mmol/L (98-107); CREATININE RESULT 0.58 mg/dL (0.52-1.25); GLUCOSE 112 mg/dL (75-110); POTASSIUM 4.1 mmol/L (3.6-5.0); SODIUM 126.3 mmol/L (137-145)
[2017-10-26 06:23] LABS: MAGNESIUM 2.2 mg/dL (1.6-2.3)
--- NOTE | 2017-10-26 08:16 | PDOC PROGRESS REPORT ---
Subjective Progress Note for:: 10/26/17 Subjective:: Patient is asleep but arouses easily. He denies any complaints. He states that he has been able to get up on his own and use the bedside commode and then get back in bed by himself. However, nurses do not exactly agree with his recollection. He states that he ate mashed potatoes and gravy and carrots last night for dinner. Reason For Visit: AFIB WITH RVR Physical Exam Vital Signs: Temp Pulse Resp BP Pulse Ox 98.4 F 81 16 100/44 L 100 10/26/17 07:30 10/26/17 07:30 10/26/17 07:30 10/26/17 07:30 10/26/17 07:30 Intake & Output 10/25/17 10/26/17 10/27/17 06:59 06:59 06:59 Intake Total 733 2093 Output Total 1530 2295 Balance -797 -202 Weight 54.7 kg 56 kg General appearance: PRESENT: no acute distress, thin Respiratory exam: PRESENT: clear to auscultation cally Cardiovascular exam: PRESENT: RRR. ABSENT: systolic murmur Pulses: PRESENT: normal dorsalis pedis pul Extremities exam: ABSENT: pedal edema Results Laboratory Results: 10/26/17 04:56 10/26/17 04:56 10/25/17 10/25/17 10/25/17 09:23 09:23 16:00 WBC 26.3 H RBC 3.43 L Hgb 11.0 L Hct 30.8 L MCV 90 MCH 31.9 MCHC 35.6 RDW 12.5 Plt Count 238 Seg Neutrophils % Not Reportable Lymphocytes % Not Reportable Monocytes % Not Reportable Eosinophils % Not Reportable Basophils % Not Reportable Absolute Neutrophils Not Reportable Absolute Lymphocytes Not Reportable Absolute Monocytes Not Reportable Absolute Eosinophils Not Reportable Absolute Basophils Not Reportable Sodium 120.6 L* 120.5 L* Potassium 3.9 3.8 Chloride 89 L 87 L Carbon Dioxide 24 25 Anion Gap 8 9 BUN 10 10 Creatinine 0.57 0.59 Est GFR ( Amer) > 60 > 60 Est GFR (Non-Af Amer) > 60 > 60 Glucose 107 115 H Calcium 9.1 8.5 Magnesium 1.3 L Urine Color Urine Appearance Urine pH Ur Specific [place] Urine Protein Urine Glucose (UA) Urine Ketones Urine Blood Urine Nitrite Ur Leukocyte Esterase Urine WBC (Auto) Urine RBC (Auto) 10/25/17 10/25/17 10/26/17 19:40 20:00 04:56 WBC 18.1 H RBC 3.41 L Hgb 11.2 L Hct 30.8 L MCV 91 MCH 32.8 MCHC 36.2 H RDW 12.5 Plt Count 234 Seg Neutrophils % 83.5 H Lymphocytes % 7.8 L Monocytes % 7.8 Eosinophils % 0.6 Basophils % 0.3 Absolute Neutrophils 15.2 H Absolute Lymphocytes 1.4 Absolute Monocytes 1.4 Absolute Eosinophils 0.1 Absolute Basophils 0.1 Sodium 120.4 L* Potassium 4.2 Chloride 89 L Carbon Dioxide 25 Anion Gap 6 BUN 10 Creatinine 0.57 Est GFR ( Amer) > 60 Est GFR (Non-Af Amer) > 60 Glucose 100 Calcium 8.2 L Magnesium Urine Color YELLOW Urine Appearance CLEAR Urine pH 6.0 Ur Specific [place] 1.027 Urine Protein NEGATIVE Urine Glucose (UA) NEGATIVE Urine Ketones NEGATIVE Urine Blood NEGATIVE Urine Nitrite NEGATIVE Ur Leukocyte Esterase NEGATIVE Urine WBC (Auto) 0 Urine RBC (Auto) 0 10/26/17 04:56 WBC RBC Hgb Hct MCV MCH MCHC RDW Plt Count Seg Neutrophils % Lymphocytes % Monocytes % Eosinophils % Basophils % Absolute Neutrophils Absolute Lymphocytes Absolute Monocytes Absolute Eosinophils Absolute Basophils Sodium 126.3 L Potassium 4.1 Chloride 93 L Carbon Dioxide 26 Anion Gap 7 BUN 7 Creatinine 0.58 Est GFR ( Amer) > 60 Est GFR (Non-Af Amer) > 60 Glucose 112 H Calcium 8.8 Magnesium 2.2 Urine Color Urine Appearance Urine pH Ur Specific [place] Urine Protein Urine Glucose (UA) Urine Ketones Urine Blood Urine Nitrite Ur Leukocyte Esterase Urine WBC (Auto) Urine RBC (Auto) 10/17/17 10/19/17 10/25/17 20:25 04:33 09:23 Troponin I 0.016 < 0.012 NT-Pro-B Natriuret Pep 1580 H Impressions: Abdomen/Pelvis CT 10/18/17 00:00 IMPRESSION: No metastatic lesions identified. Chest CT 10/18/17 00:00 IMPRESSION: T11 compression fracture of undetermined chronicity. Extensive soft tissue mass in the distal 2/3 of the esophagus. No adenopathy or parenchymal masses. Chest X-Ray 10/25/17 00:00 IMPRESSION: MINIMAL LEFT BASILAR ATELECTASIS VERSUS FAINT INFILTRATE AND PROBABLE SMALL PLEURAL EFFUSION. Chest/Abdomen CTA 10/25/17 00:00 IMPRESSION: 1. There is no evidence of pulmonary emboli. 2. Esophageal mass versus hiatal hernia. GI consultation recommended. Assessment & Plan - Diagnosis (1) Esophageal cancer Qualifiers: Malignant neoplasm of esophagus location: lower third Qualified Code(s): C15.5 - Malignant neoplasm of lower third of esophagus Is this a current diagnosis for this admission?: Yes Plan: Although patient and family have requested aggressive treatment and plans for PET scan as outpatient have been arranged this Sunday, patient's performance status and degree of confusion have been such that we may need to re-think this. I will discuss further with family once patient has been discharged. (2) Malnutrition Qualifiers: Malnutrition type: protein-calorie malnutrition Is this a current diagnosis for this admission?: Yes Plan: Improving. Continue supplements. (3) Frequent falls Is this a current diagnosis for this admission?: Yes - Plan Summary Plan Summary: He is still being evaluated and treated for SIADH/hyponatremia. If he is still in the hospital on Sunday, we will reschedule his PET scan to next week. Please call over the weekend if needed.
[2017-10-26] MEDS: METOPROLOL TARTRATE 25 MG TABLET PO SCH ×2 (10:53→21:06)
[2017-10-26] MEDS: CLOPIDOGREL BISULFATE 75 MG TABLET PO SCH (10:53)
[2017-10-26] MEDS: FINASTERIDE 5 MG TABLET PO SCH (10:53)
[2017-10-26] MEDS: ASPIRIN 81 MG TABLET, CHEWABLE PO SCH (10:54)
[2017-10-26] MEDS: ENOXAPARIN SODIUM INJ 40 MG/0.4 ML DISP.SYRIN SUBCUT SCH (10:54)
--- NOTE | 2017-10-26 13:30 | RADIOLOGY REPORT (SQ) ---
EXAM DESCRIPTION: MRI HEAD COMBO COMPLETED DATE/TIME: 10/26/2017 1:17 pm REASON FOR STUDY: confusion, malignancy COMPARISON: August 2016 TECHNIQUE: Multiplanar imaging includes noncontrasted T1, T2, FLAIR, Diffusion with ADC map and post gadolinium contrast T1 sequences. Images stored on PACS. CONTRAST TYPE AND DOSE: 10 mL MultiHance RENAL FUNCTION: GFR > 60. LIMITATIONS: None. FINDINGS: ANATOMY: No anomalies. Normal vascular flow voids. Pituitary fossa normal. CSF SPACES: Atrophy-induced prominence of CSF spaces and ventricles. CEREBRUM: High-signal intensity lesions scattered throughout the white matter on FLAIR imaging with d istribution suggesting chronic micro-vascular ischemic change. No evidence of hemorrhage, mass, extra axial fluid collection or acute ischemic change. No enhancing lesions. POSTERIOR FOSSA: No signal alteration. No hemorrhage. No edema, masses, or mass effect. Internal christin tory canals, cerebello-pontine angles, mastoids normal. No enhancing lesions. ORBITS: No masses. Globes normal. PARANASAL SINUSES: No fluid levels. Mucosa normal. DIFFUSION: Normal. No evidence of recent infarct. OTHER: No other significant finding. IMPRESSION: ATROPHY AND CHRONIC MICRO-VASCULAR ISCHEMIC CHANGES. OTHERWISE UNREMARKABLE MRI OF THE B RAIN WITHOUT AND WITH INTRAVENOUS GADOLINIUM CONTRAST. EVIDENCE OF ACUTE STROKE: NO. TECHNICAL DOCUMENTATION: JOB ID: [id number] [employer]- All Rights Reserved
[2017-10-26 14:53] LABS: ANION GAP 8 (5-19); BLOOD UREA NITROGEN 8 mg/dL (7-20); CALCIUM 8.9 mg/dL (8.4-10.2); CARBON DIOXIDE 27 mmol/L (22-30); CHLORIDE 92 mmol/L (98-107); CREATININE RESULT 0.55 mg/dL (0.52-1.25); GLUCOSE 87 mg/dL (75-110); POTASSIUM 4.2 mmol/L (3.6-5.0); SODIUM 127.1 mmol/L (137-145)
--- NOTE | 2017-10-26 19:07 | PDOC PROGRESS REPORT ---
Subjective Progress Note for:: 10/26/17 Subjective:: Patient told me that he is tired today. Other than that does not really have any other complaints. I gave him Tolvaptan last night and his sodium level improved today. Reason For Visit: AFIB WITH RVR Physical Exam Vital Signs: Temp Pulse Resp BP Pulse Ox 98.2 F 70 20 103/71 100 10/26/17 15:08 10/26/17 15:08 10/26/17 15:08 10/26/17 15:08 10/26/17 15:08 Intake & Output 10/25/17 10/26/17 10/27/17 06:59 06:59 06:59 Intake Total 733 2093 620 Output Total 1530 2295 940 Balance -713 -202 -692 Weight 54.7 kg 56 kg Exam: General appearance: PRESENT: no acute distress, cooperative, well-developed, well-nourished Head exam: PRESENT: atraumatic, normocephalic Eye exam: PRESENT: conjunctiva pale, PERRLA. ABSENT: scleral icterus Neck exam: ABSENT: JVD Respiratory exam: PRESENT: Diminished breath sounds. ABSENT: crackles, rales, rhonchi, unlabored, wheezes Cardiovascular exam: PRESENT: Regular rate rhythm -+S1, +S2. ABSENT: diastolic murmur, systolic murmur GI/Abdominal exam: PRESENT: normal bowel sounds, soft. ABSENT: guarding, mass, tenderness Extremities exam: ABSENT: No edema Neurological exam: PRESENT: alert, awake, oriented to person, place and time. Skin exam: PRESENT: dry, warm, Results Laboratory Results: 10/26/17 04:56 10/26/17 14:01 10/25/17 10/25/17 10/26/17 19:40 20:00 04:56 WBC 18.1 H RBC 3.41 L Hgb 11.2 L Hct 30.8 L MCV 91 MCH 32.8 MCHC 36.2 H RDW 12.5 Plt Count 234 Seg Neutrophils % 83.5 H Lymphocytes % 7.8 L Monocytes % 7.8 Eosinophils % 0.6 Basophils % 0.3 Absolute Neutrophils 15.2 H Absolute Lymphocytes 1.4 Absolute Monocytes 1.4 Absolute Eosinophils 0.1 Absolute Basophils 0.1 Sodium 120.4 L* Potassium 4.2 Chloride 89 L Carbon Dioxide 25 Anion Gap 6 BUN 10 Creatinine 0.57 Est GFR ( Amer) > 60 Est GFR (Non-Af Amer) > 60 Glucose 100 Calcium 8.2 L Magnesium Urine Color YELLOW Urine Appearance CLEAR Urine pH 6.0 Ur Specific [place] 1.027 Urine Protein NEGATIVE Urine Glucose (UA) NEGATIVE Urine Ketones NEGATIVE Urine Blood NEGATIVE Urine Nitrite NEGATIVE Ur Leukocyte Esterase NEGATIVE Urine WBC (Auto) 0 Urine RBC (Auto) 0 10/26/17 10/26/17 04:56 14:01 WBC RBC Hgb Hct MCV MCH MCHC RDW Plt Count Seg Neutrophils % Lymphocytes % Monocytes % Eosinophils % Basophils % Absolute Neutrophils Absolute Lymphocytes Absolute Monocytes Absolute Eosinophils Absolute Basophils Sodium 126.3 L 127.1 L Potassium 4.1 4.2 Chloride 93 L 92 L Carbon Dioxide 26 27 Anion Gap 7 8 BUN 7 8 Creatinine 0.58 0.55 Est GFR ( Amer) > 60 > 60 Est GFR (Non-Af Amer) > 60 > 60 Glucose 112 H 87 Calcium 8.8 8.9 Magnesium 2.2 Urine Color Urine Appearance Urine pH Ur Specific [place] Urine Protein Urine Glucose (UA) Urine Ketones Urine Blood Urine Nitrite Ur Leukocyte Esterase Urine WBC (Auto) Urine RBC (Auto) 10/17/17 10/19/17 10/25/17 20:25 04:33 09:23 Troponin I 0.016 < 0.012 NT-Pro-B Natriuret Pep 1580 H Impressions: Abdomen/Pelvis CT 10/18/17 00:00 IMPRESSION: No metastatic lesions identified. Chest CT 10/18/17 00:00 IMPRESSION: T11 compression fracture of undetermined chronicity. Extensive soft tissue mass in the distal 2/3 of the esophagus. No adenopathy or parenchymal masses. Chest X-Ray 10/25/17 00:00 IMPRESSION: MINIMAL LEFT BASILAR ATELECTASIS VERSUS FAINT INFILTRATE AND PROBABLE SMALL PLEURAL EFFUSION. Chest/Abdomen CTA 10/25/17 00:00 IMPRESSION: 1. There is no evidence of pulmonary emboli. 2. Esophageal mass versus hiatal hernia. GI consultation recommended. Head MRI 10/26/17 10:39 IMPRESSION: ATROPHY AND CHRONIC MICRO-VASCULAR ISCHEMIC CHANGES. OTHERWISE UNREMARKABLE MRI OF THE BRAIN WITHOUT AND WITH INTRAVENOUS GADOLINIUM CONTRAST. EVIDENCE OF ACUTE STROKE: NO. Assessment & Plan - Diagnosis (1) Hyponatremia Is this a current diagnosis for this admission?: Yes Plan: Previous workup of her hyponatremia is still high likelihood of SIADH. With the current diagnosis of squamous cell carcinoma of the esophagus there was a question if there is another unknown primary site. Malignancy can also cause SIADH. Patient seems to be euvolemic except that he has some hypotension today. This hypotension can either be indicative of relative hypovolemia versus impending sepsis associated with leukocytosis. Also noted the patient seems to have chronic hyponatremia for the past couple of years at least with sodium level anywhere from 126-132. Patient's sodium level has improved today after a dose of tolvaptan. To prevent rapid correction we will just monitor the patient's sodium level tomorrow. If it is anywhere less than 127 will probably can give another dose of tolvaptan tomorrow so we will decide by then. (2) SIADH (syndrome of inappropriate ADH production) Is this a current diagnosis for this admission?: Yes (3) Esophageal cancer Qualifiers: Malignant neoplasm of esophagus location: lower third Qualified Code(s): C15.5 - Malignant neoplasm of lower third of esophagus Is this a current diagnosis for this admission?: Yes (4) Squamous cell carcinoma in situ Is this a current diagnosis for this admission?: Yes (5) Anemia Is this a current diagnosis for this admission?: Yes (6) Atrial fibrillation Is this a current diagnosis for this admission?: Yes (7) Leukocytosis Is this a current diagnosis for this admission?: Yes - Time Time with patient: 15-25 minutes
--- NOTE | 2017-10-26 19:29 | PDOC PROGRESS REPORT ---
Subjective Progress Note for:: 10/26/17 Subjective:: The patient is a 77-year-old male who presented to the emergency room after having a choking episode at home. He was found to have a distal esophageal mass. 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 The patient has been seen by the oncology service and initially plans were for him to go home and follow-up as an outpatient for a PET CT scan and further workup. However the patient has had worsening status. He has a history for the past year or 2 of worsening hyponatremia. His sodium level began to acutely worsen and his he developed worsening leukocytosis and sepsis with a probable bacterial infection of unknown origin. The patient has SIADH and in spite of appropriate fluid restriction his sodium level continued to decline. Nephrology was consulted and the patient was started on tolvaptan. He became significantly tachycardic and hypotensive. Was felt that he was developing sepsis and he was started on broad-spectrum antibiotics. Yesterday afternoon the patient's leukocytosis significantly worsened and he developed tachycardia and became hypotensive. The patient did receive normal saline bolus. This did not improve his sodium level as well. He was started on broad-spectrum IV antibiotics with IV vancomycin and meropenem. Blood cultures 2 were drawn, UA and urine culture was obtained. He previously had had a CT scan of the chest abdomen and pelvis which revealed localized disease with his esophageal mass. He had a repeat CT angiography yesterday to rule out pulmonary embolism which did not reveal any evidence of pneumonia. Today I spoke to oncology regarding the plan of care. At this point due to his debility, sepsis and hyponatremia he would not be a candidate for any aggressive workup. It is felt that further workup for his cancer needs to happen after he recuperates from this acute illness. He had been scheduled for a PET CT scan this coming Sunday evening. Unfortunately even though he has been seen by multiple doctors there has not been good communication with the family. I did sit down with them today for quite some time to go over the most recent events. The patient's is his surrogate decision maker however the patient has 2 daughters who are both nurses that work at [employer] in [place]. Veronica Woodson , Sandra Palacios . The patient's wifes number is in the chart. I have assured them that we will communicate better going forward. Today we discussed the plan of care. They are quite concerned that the patient is going to be missing his PET CT scan. I have explained to them that although they are anxious to get his disease staged, that actually it is not an emergent situation and it is much more important to get him through this acute illness and get his strength back. We discussed briefly possible transfer to [facility] but after a long discussion have decided to just keep him here. They are concerned that the patient is more confused over the past couple of days. He apparently has some very mild memory deficits at baseline. I have also explained to them that his hyponatremia combined with sepsis and a prolonged hospitalization is likely contributing to his confusion and hopefully we will see that improve over the next couple of days. When I went to see the patient himself he states that he feels confused. He states that he does not know what is going on. Although I reoriented him quite often he does not seem to remember what I say. He states that he feels just fine and he would like to go home. He does admit to being weak. Otherwise review of systems could not be obtained. Reason For Visit: AFIB WITH RVR Physical Exam Vital Signs: Temp Pulse Resp BP Pulse Ox 98.2 F 70 20 103/71 100 10/26/17 15:08 10/26/17 15:08 10/26/17 15:08 10/26/17 15:08 10/26/17 15:08 Intake & Output 10/25/17 10/26/17 10/27/17 06:59 06:59 06:59 Intake Total 733 2093 620 Output Total 1530 8265 940 Balance -797 -202 -085 Weight 54.7 kg 56 kg General appearance: PRESENT: other - Somewhat ill-appearing gentleman resting comfortably in no acute distress. Head exam: PRESENT: atraumatic, normocephalic Mouth exam: PRESENT: moist, tongue midline Neck exam: ABSENT: carotid bruit, JVD, lymphadenopathy, thyromegaly Respiratory exam: PRESENT: clear to auscultation cally. ABSENT: rales, rhonchi, wheezes Cardiovascular exam: PRESENT: RRR. ABSENT: diastolic murmur, rubs, systolic murmur GI/Abdominal exam: PRESENT: normal bowel sounds, soft. ABSENT: distended, guarding, mass, organolmegaly, rebound, tenderness Rectal exam: PRESENT: deferred Extremities exam: PRESENT: full ROM. ABSENT: calf tenderness, clubbing, pedal edema Neurological exam: PRESENT: awake, oriented to person, oriented to place. ABSENT: oriented to time, oriented to situation Psychiatric exam: PRESENT: agitated, anxious Skin exam: PRESENT: dry, intact, warm. ABSENT: cyanosis, rash Results Laboratory Results: 10/26/17 04:56 10/26/17 14:01 10/25/17 10/25/17 10/26/17 19:40 20:00 04:56 WBC 18.1 H RBC 3.41 L Hgb 11.2 L Hct 30.8 L MCV 91 MCH 32.8 MCHC 36.2 H RDW 12.5 Plt Count 234 Seg Neutrophils % 83.5 H Lymphocytes % 7.8 L Monocytes % 7.8 Eosinophils % 0.6 Basophils % 0.3 Absolute Neutrophils 15.2 H Absolute Lymphocytes 1.4 Absolute Monocytes 1.4 Absolute Eosinophils 0.1 Absolute Basophils 0.1 Sodium 120.4 L* Potassium 4.2 Chloride 89 L Carbon Dioxide 25 Anion Gap 6 BUN 10 Creatinine 0.57 Est GFR ( Amer) > 60 Est GFR (Non-Af Amer) > 60 Glucose 100 Calcium 8.2 L Magnesium Urine Color YELLOW Urine Appearance CLEAR Urine pH 6.0 Ur Specific [place] 1.027 Urine Protein NEGATIVE Urine Glucose (UA) NEGATIVE Urine Ketones NEGATIVE Urine Blood NEGATIVE Urine Nitrite NEGATIVE Ur Leukocyte Esterase NEGATIVE Urine WBC (Auto) 0 Urine RBC (Auto) 0 10/26/17 10/26/17 04:56 14:01 WBC RBC Hgb Hct MCV MCH MCHC RDW Plt Count Seg Neutrophils % Lymphocytes % Monocytes % Eosinophils % Basophils % Absolute Neutrophils Absolute Lymphocytes Absolute Monocytes Absolute Eosinophils Absolute Basophils Sodium 126.3 L 127.1 L Potassium 4.1 4.2 Chloride 93 L 92 L Carbon Dioxide 26 27 Anion Gap 7 8 BUN 7 8 Creatinine 0.58 0.55 Est GFR ( Amer) > 60 > 60 Est GFR (Non-Af Amer) > 60 > 60 Glucose 112 H 87 Calcium 8.8 8.9 Magnesium 2.2 Urine Color Urine Appearance Urine pH Ur Specific [place] Urine Protein Urine Glucose (UA) Urine Ketones Urine Blood Urine Nitrite Ur Leukocyte Esterase Urine WBC (Auto) Urine RBC (Auto) 10/17/17 10/19/17 10/25/17 20:25 04:33 09:23 Troponin I 0.016 < 0.012 NT-Pro-B Natriuret Pep 1580 H Impressions: Abdomen/Pelvis CT 10/18/17 00:00 IMPRESSION: No metastatic lesions identified. Chest CT 10/18/17 00:00 IMPRESSION: T11 compression fracture of undetermined chronicity. Extensive soft tissue mass in the distal 2/3 of the esophagus. No adenopathy or parenchymal masses. Chest X-Ray 10/25/17 00:00 IMPRESSION: MINIMAL LEFT BASILAR ATELECTASIS VERSUS FAINT INFILTRATE AND PROBABLE SMALL PLEURAL EFFUSION. Chest/Abdomen CTA 10/25/17 00:00 IMPRESSION: 1. There is no evidence of pulmonary emboli. 2. Esophageal mass versus hiatal hernia. GI consultation recommended. Head MRI 10/26/17 10:39 IMPRESSION: ATROPHY AND CHRONIC MICRO-VASCULAR ISCHEMIC CHANGES. OTHERWISE UNREMARKABLE MRI OF THE BRAIN WITHOUT AND WITH INTRAVENOUS GADOLINIUM CONTRAST. EVIDENCE OF ACUTE STROKE: NO. Assessment & Plan - Diagnosis (1) Hyponatremia Is this a current diagnosis for this admission?: Yes Plan: The patient has worsening hyponatremia. Initially he was placed on sodium chloride tablets over last weekend. I stopped these 2 days ago and placed the patient on a fluid restriction. In spite of this the patient's sodium is continued to worsen. 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 He was given a dose of tolvaptan yesterday evening with improvement of his sodium levels. They are not rising too quickly. His baseline sodium for the past year has been around 129-130. I suspect his SIADH is due to underlying malignancy. (2) Acute metabolic encephalopathy Plan: The patient has had acute worsening of his mental status over the past 48 hours. At this point I believe his acute encephalopathy is due to his hyponatremia and sepsis. Family reports he also has some mild deficits at home. There could be an element of hospital delirium as well. Family is quite concerned about this. Hopefully his mental status will improve with treatment. (3) Sepsis Plan: The patient has developed evidence of sepsis. He had worsening, marked leukocytosis. He became hypotensive yesterday afternoon. It is quite clear he has an infection of some sort. He also was borderline tachycardic and ran a low -grade fever the night before last.. At this point he has a bacterial infection of unknown origin. The most likely source is respiratory as he does have an esophageal mass and presented with some dysphagia. He has empirically been started on broad-spectrum antibiotics with IV vancomycin and says meropenem for presumed pneumonia. Blood cultures 2 will be obtained urine culture was unremarkable e. The patient did have a CT angiography of the chest which ruled out pulmonary embolus. It did not reveal an underlying pneumonia. At this point the source of his sepsis symptoms is unknown. He is greatly improved today after starting broad-spectrum antibiotics yesterday evening. (4) Bacterial infection Plan: I believe the patient has a bacterial infection of unknown origin. At this point the source is unclear. Blood cultures and urine culture are negative today. He has been started on broad-spectrum IV antibiotics with IV vancomycin and meropenem. This is day #2 of treatment. (5) Squamous cell carcinoma in situ Is this a current diagnosis for this admission?: Yes Plan: He will follow-up with oncology as an outpatient. He will need further workup and a PET scan. So far he is swallowing just fine on a modified diet. (6) Dysphagia Qualifiers: Dysphagia type: esophageal phase Qualified Code(s): R13.10 - Dysphagia, unspecified Is this a current diagnosis for this admission?: Yes Plan: Secondary to distal esophageal mass. Continue modified diet (7) Atrial fibrillation with rapid ventricular response Plan: Resolved (9) Occult blood in stools Is this a current diagnosis for this admission?: Yes (10) Frequent falls Is this a current diagnosis for this admission?: Yes (11) Hypokalemia Is this a current diagnosis for this admission?: Yes (12) Hypomagnesemia Is this a current diagnosis for this admission?: Yes (13) Anemia Is this a current diagnosis for this admission?: Yes - Time Time Spent with patient: 35 or more minutes - Inpatient Certification Based on my medical assessment, after consideration of the patient's comorbidities, presenting symptoms, or acuity I expect that the services needed warrant INPATIENT care.: Yes I certify that my determination is in accordance with my understanding of Medicare's requirements for reasonable and necessary INPATIENT services [42 CFR 412.3e].: Yes Medical Necessity: Need for IV Antibiotics, Other - Inpatient hospitalization remains necessary. The patient is acutely encephalopathic. He developed a septic picture yesterday afternoon and currently is requiring IV antibiotics. At this point no source of infection has been found however. He is acutely hyponatremic and is being followed by nephrology. Timing of disposition will be determined by his clinical course.
[2017-10-26] MEDS: LORAZEPAM INJ 2 MG/1 ML VIAL IV PRN (21:06)
[2017-10-27] MEDS: VANCOMYCIN HCL 1,000 MG in DEXTROSE 5%-WATER 250 ML IV SCH ×2 (03:22→16:33)
[2017-10-27] MEDS: MEROPENEM 1 GM in NORMAL SALINE 50 ML IV SCH ×3 (05:30→21:10)
[2017-10-27] MEDS: LANSOPRAZOLE 30 MG TAB.RAP.DR PO SCH (05:30)
[2017-10-27 06:55] LABS: ANION GAP 8 (5-19); BLOOD UREA NITROGEN 6 mg/dL (7-20); CALCIUM 9.3 mg/dL (8.4-10.2); CARBON DIOXIDE 25 mmol/L (22-30); CHLORIDE 96 mmol/L (98-107); CREATININE RESULT 0.55 mg/dL (0.52-1.25); GLUCOSE 78 mg/dL (75-110); POTASSIUM 4.4 mmol/L (3.6-5.0); SODIUM 129.2 mmol/L (137-145)
[2017-10-27] MEDS: METOPROLOL TARTRATE 25 MG TABLET PO SCH ×2 (10:43→21:11)
[2017-10-27] MEDS: ENOXAPARIN SODIUM INJ 40 MG/0.4 ML DISP.SYRIN SUBCUT SCH (10:43)
[2017-10-27] MEDS: ASPIRIN 81 MG TABLET, CHEWABLE PO SCH (10:44)
[2017-10-27] MEDS: FINASTERIDE 5 MG TABLET PO SCH (10:44)
[2017-10-27] MEDS: CLOPIDOGREL BISULFATE 75 MG TABLET PO SCH (10:44)
--- NOTE | 2017-10-27 11:47 | PDOC PROGRESS REPORT ---
Subjective Progress Note for:: 10/27/17 Subjective:: Previous hospital summary entered by Shirin Bear: the patient is a 77-year- old male who presented to the emergency room after having a choking episode at home. He was found to have a distal esophageal mass. 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 The patient has been seen by the oncology service and initially plans were for him to go home and follow-up as an outpatient for a PET CT scan and further workup. However the patient has had worsening status. He has a history for the past year or 2 of worsening hyponatremia. His sodium level began to acutely worsen and his he developed worsening leukocytosis and sepsis with a probable bacterial infection of unknown origin. The patient has SIADH and in spite of appropriate fluid restriction his sodium level continued to decline. Nephrology was consulted and the patient was started on tolvaptan. He became significantly tachycardic and hypotensive. Was felt that he was developing sepsis and he was started on broad-spectrum antibiotics. Yesterday afternoon the patient's leukocytosis significantly worsened and he developed tachycardia and became hypotensive. The patient did receive normal saline bolus. This did not improve his sodium level as well. He was started on broad-spectrum IV antibiotics with IV vancomycin and meropenem. Blood cultures 2 were drawn, UA and urine culture was obtained. He previously had had a CT scan of the chest abdomen and pelvis which revealed localized disease with his esophageal mass. He had a repeat CT angiography yesterday to rule out pulmonary embolism which did not reveal any evidence of pneumonia. Today I spoke to oncology regarding the plan of care. At this point due to his debility, sepsis and hyponatremia he would not be a candidate for any aggressive workup. It is felt that further workup for his cancer needs to happen after he recuperates from this acute illness. He had been scheduled for a PET CT scan this coming Sunday evening. Unfortunately even though he has been seen by multiple doctors there has not been good communication with the family. I did sit down with them today for quite some time to go over the most recent events. The patient's is his surrogate decision maker however the patient has 2 daughters who are both nurses that work at [employer] in [place]. Veronica Woodson , Sandra Palacios . The patient's wifes number is in the chart. I have assured them that we will communicate better going forward. Today, the patient appears to be confused. When I asked him why he was in the hospital he could not recall any of the information that was discussed previously. He does not appear to be aware that he has been diagnosed with esophageal cancer. He does not recall that he suffered from a low sodium level or atrial fibrillation with rapid ventricular response. He continuously deferred me to speak to his . He states that he feels well and he is hoping that he can go home soon. He denies nausea or vomiting. He denies abdominal pain. He denies any difficulty swallowing. He has not had any diarrhea or constipation that he recalls. He has no shortness of breath or chest pain. His review of systems should be considered unreliable. Reason For Visit: AFIB WITH RVR Physical Exam Vital Signs: Temp Pulse Resp BP Pulse Ox 98.8 F 88 16 123/53 L 96 10/27/17 07:10 10/27/17 07:10 10/27/17 07:10 10/27/17 07:10 10/27/17 07:10 Intake & Output 10/26/17 10/27/17 10/28/17 06:59 06:59 06:59 Intake Total 2093 1060 Output Total 2295 940 Balance -202 120 Weight 56 kg 55.1 kg Additional comments: The patient does not appear to be in distress. His cognition and mentation are described above. He does not appear to have any recall of events that occurred during this hospitalization. He appears to be thin but not cachectic. His facial appearance is normal. His oropharynx demonstrates moist mucous membranes. His lungs are clear to auscultation bilaterally. Today, his cardiac exam is regular. I do not appreciate any murmurs, gallops or rubs. The abdomen is soft and flat. Bowel sounds are present. He does not have any guarding or rebound noted. The lower extremities are warm to touch. No pitting edema is present. The skin is warm, dry and intact without lesions or rashes. Results Laboratory Results: 10/26/17 04:56 10/27/17 05:55 10/26/17 10/27/17 14:01 05:55 Sodium 127.1 L 129.2 L Potassium 4.2 4.4 Chloride 92 L 96 L Carbon Dioxide 27 25 Anion Gap 8 8 BUN 8 6 L Creatinine 0.55 0.55 Est GFR ( Amer) > 60 > 60 Est GFR (Non-Af Amer) > 60 > 60 Glucose 87 78 Calcium 8.9 9.3 10/25/17 20:00 Clean Catch Midstream Urine Culture - Final NO GROWTH 2 DAYS 10/17/17 10/19/17 10/25/17 20:25 04:33 09:23 Troponin I 0.016 < 0.012 NT-Pro-B Natriuret Pep 1580 H Impressions: Abdomen/Pelvis CT 10/18/17 00:00 IMPRESSION: No metastatic lesions identified. Chest CT 10/18/17 00:00 IMPRESSION: T11 compression fracture of undetermined chronicity. Extensive soft tissue mass in the distal 2/3 of the esophagus. No adenopathy or parenchymal masses. Chest X-Ray 10/25/17 00:00 IMPRESSION: MINIMAL LEFT BASILAR ATELECTASIS VERSUS FAINT INFILTRATE AND PROBABLE SMALL PLEURAL EFFUSION. Chest/Abdomen CTA 10/25/17 00:00 IMPRESSION: 1. There is no evidence of pulmonary emboli. 2. Esophageal mass versus hiatal hernia. GI consultation recommended. Head MRI 10/26/17 10:39 IMPRESSION: ATROPHY AND CHRONIC MICRO-VASCULAR ISCHEMIC CHANGES. OTHERWISE UNREMARKABLE MRI OF THE BRAIN WITHOUT AND WITH INTRAVENOUS GADOLINIUM CONTRAST. EVIDENCE OF ACUTE STROKE: NO. Assessment & Plan - Diagnosis (1) Acute metabolic encephalopathy Is this a current diagnosis for this admission?: Yes (2) Anemia Is this a current diagnosis for this admission?: Yes (3) Atrial fibrillation with RVR Is this a current diagnosis for this admission?: Yes (4) Bacterial infection Is this a current diagnosis for this admission?: Yes (5) Dysphagia Qualifiers: Dysphagia type: esophageal phase Qualified Code(s): R13.10 - Dysphagia, unspecified Is this a current diagnosis for this admission?: Yes (6) Hyponatremia Is this a current diagnosis for this admission?: Yes (7) Occult blood in stools Is this a current diagnosis for this admission?: Yes (8) Sepsis Is this a current diagnosis for this admission?: Yes (9) Squamous cell carcinoma in situ Is this a current diagnosis for this admission?: Yes - Time Time Spent with patient: 25-34 minutes - Inpatient Certification Medical Necessity: Need Close Monitoring Due to Risk of Patient Decompensation, Need for Neurological Checks, Need for IV Antibiotics - Plan Summary Plan Summary: The patient is a 77 year old male who presented with a dysphasia. He was found to have a esophageal mass. His biopsy demonstrated squamous cell carcinoma in situ. He developed atrial fibrillation with rapid ventricular response which is now resolved. Over the last 2 days the patient developed tachycardia and hypotension. This was sinus tachycardia. He is now being treated with meropenem and vancomycin for presumed sepsis due to a bacterial infection. Cultures remain negative. The patient does appear to be clinically stable and improved. He has occult blood in his stools and underlying anemia. This will likely require further evaluation after discharge. He has received tolvaptan for his hyponatremia which is now up to 129. I anticipate that the patient will remain in the hospital over the weekend. He tentatively has a PET scan scheduled for tomorrow, but, the patient is not yet an appropriate candidate for chemotherapy secondary to his debility.
--- NOTE | 2017-10-27 12:54 | PDOC PROGRESS REPORT ---
Subjective Progress Note for:: 10/27/17 Subjective:: No acute events overnight still gets confused at night, but this morning he seems very lucid. I have asked nursing to get him up in a chair so he does not get further deconditioned. Reason For Visit: AFIB WITH RVR Physical Exam Vital Signs: Temp Pulse Resp BP Pulse Ox 98.8 F 88 16 123/53 L 96 10/27/17 07:10 10/27/17 07:10 10/27/17 07:10 10/27/17 07:10 10/27/17 07:10 Intake & Output 10/26/17 10/27/17 10/28/17 06:59 06:59 06:59 Intake Total 2093 1060 Output Total 2295 940 Balance -202 120 Weight 56 kg 55.1 kg General appearance: PRESENT: no acute distress, well-developed, well-nourished Head exam: PRESENT: atraumatic, normocephalic Eye exam: PRESENT: conjunctiva pink, EOMI, PERRLA. ABSENT: scleral icterus Ear exam: PRESENT: normal external ear exam Mouth exam: PRESENT: moist, tongue midline Neck exam: ABSENT: carotid bruit, JVD, lymphadenopathy, thyromegaly Respiratory exam: PRESENT: clear to auscultation cally. ABSENT: rales, rhonchi, wheezes Cardiovascular exam: PRESENT: RRR. ABSENT: diastolic murmur, rubs, systolic murmur Pulses: PRESENT: normal dorsalis pedis pul Vascular exam: PRESENT: normal capillary refill GI/Abdominal exam: PRESENT: normal bowel sounds, soft. ABSENT: distended, guarding, mass, organolmegaly, rebound, tenderness Rectal exam: PRESENT: deferred Extremities exam: PRESENT: full ROM. ABSENT: calf tenderness, clubbing, pedal edema Neurological exam: PRESENT: alert, awake, oriented to person, oriented to place , oriented to time, oriented to situation, CN II-XII grossly intact. ABSENT: motor sensory deficit Psychiatric exam: PRESENT: appropriate affect, normal mood. ABSENT: homicidal ideation, suicidal ideation Skin exam: PRESENT: dry, intact, warm. ABSENT: cyanosis, rash Results Laboratory Results: 10/26/17 04:56 10/27/17 05:55 10/26/17 10/27/17 14:01 05:55 Sodium 127.1 L 129.2 L Potassium 4.2 4.4 Chloride 92 L 96 L Carbon Dioxide 27 25 Anion Gap 8 8 BUN 8 6 L Creatinine 0.55 0.55 Est GFR ( Amer) > 60 > 60 Est GFR (Non-Af Amer) > 60 > 60 Glucose 87 78 Calcium 8.9 9.3 10/25/17 20:00 Clean Catch Midstream Urine Culture - Final NO GROWTH 2 DAYS 10/17/17 10/19/17 10/25/17 20:25 04:33 09:23 Troponin I 0.016 < 0.012 NT-Pro-B Natriuret Pep 1580 H Impressions: Abdomen/Pelvis CT 10/18/17 00:00 IMPRESSION: No metastatic lesions identified. Chest CT 10/18/17 00:00 IMPRESSION: T11 compression fracture of undetermined chronicity. Extensive soft tissue mass in the distal 2/3 of the esophagus. No adenopathy or parenchymal masses. Chest X-Ray 10/25/17 00:00 IMPRESSION: MINIMAL LEFT BASILAR ATELECTASIS VERSUS FAINT INFILTRATE AND PROBABLE SMALL PLEURAL EFFUSION. Chest/Abdomen CTA 10/25/17 00:00 IMPRESSION: 1. There is no evidence of pulmonary emboli. 2. Esophageal mass versus hiatal hernia. GI consultation recommended. Head MRI 10/26/17 10:39 IMPRESSION: ATROPHY AND CHRONIC MICRO-VASCULAR ISCHEMIC CHANGES. OTHERWISE UNREMARKABLE MRI OF THE BRAIN WITHOUT AND WITH INTRAVENOUS GADOLINIUM CONTRAST. EVIDENCE OF ACUTE STROKE: NO. 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 Kang, further staging as an outpatient. I will discontinue the PET/CT as patient is still admitted as an inpatient. Hopefully patient can improve his performance status so we could consider some form of treatment as an outpatient. - Time Time Spent with patient: 35 or more minutes - Inpatient Certification Based on my medical assessment, after consideration of the patient's comorbidities, presenting symptoms, or acuity I expect that the services needed warrant INPATIENT care.: Yes I certify that my determination is in accordance with my understanding of Medicare's requirements for reasonable and necessary INPATIENT services [42 CFR 412.3e].: Yes Medical Necessity: Need For IV Fluids, Need For Continuous Telemetry Monitoring , Risk of Complication if Not Cared For in Hospital
--- NOTE | 2017-10-27 13:05 | XCELERA REPORT ---
[address] [address] Transthoracic Echocardiogram Report Name: ADAM ZELAYA Age: 77 yrs Gender: Male : 1940 Patient Status: Inpatient Patient Location: [address] [place], [place] [id number] Study Date: 10/26/2017 03:27 PM Height: 67 in Weight: 123 lb BSA: 1.6 m2 Procedure: A two-dimensional transthoracic echocardiogram with color flow and Doppler was performed. Study Quality: Fair. Reason For Study: SEPSIS / ENDOCARDITIS History: SEPSIS / ENDOCARDITIS. Ordering Physician: APRIL MICHELLE Performed By: Edwige Saldaña Interpretation Summary The left ventricle is normal in size. There is normal left ventricular wall thickness. LV EF is > THAN 55% Left ventricular systolic function is normal. Doppler measurements suggest normal left ventricular diastolic function The left ventricular wall motion is normal. There is no thrombus. There is no ventricular septal defect visualized. tHERE IS A CALCIFICATION IN THE LV WELL ABOVE THE MITRAL VALVE.RECOMMEND GISSELLE. The right ventricle is grossly normal size. The right ventricle is not well visualized secondary to technical limitations The left atrial size is normal. There is no evidence of mitral valve prolapse. There is no vegetation seen on the mitral valve. There is no mitral valve stenosis. There is a mild amount of mitral regurgitation There is no aortic valvular vegetation. There is no aortic valve stenosis There is no LVOT obstruction. No aortic regurgitation is present. There is no tricuspid stenosis. There is a mild amount of tricuspid regurgitation There is mild pulmonary hypertension by echo RVSP is 41 mm of Hg , with RA mean of 10. There is no pericardial effusion. MMode/2D Measurements & Calculations RVDd: 3.1 cm LVIDd: 4.3 cm FS: 31.8 % Ao root diam: 3.0 cm IVSd: 0.88 cm LVIDs: 2.9 cm EDV(Teich): 83.5 ml LVPWd: 0.93 cm ESV(Teich): 33.3 ml Ao root area: 7.3 cm2 EF(Teich): 60.2 % LA dimension: 3.2 cm Doppler Measurements & Calculations MV E max lila: MV P1/2t max lila: Ao V2 max: LV V1 max P.4 cm/sec 86.9 cm/sec 112.5 cm/sec 2.9 mmHg MV A max lila: MV P1/2t: 56.7 msec Ao max PG: LV V1 max: 76.0 cm/sec 5.1 mmHg 85.4 cm/sec MV E/A: 1.1 MVA(P1/2t): 3.9 cm2 MV dec slope: 449.1 cm/sec2 PA V2 max: TR max lila: 81.9 cm/sec 276.9 cm/sec PA max PG: TR max P.7 mmHg 2.7 mmHg Left Ventricle The left ventricle is normal in size. There is normal left ventricular wall thickness. LV EF is > THAN 55%. Left ventricular systolic function is normal. Doppler measurements suggest normal left ventricular diastolic function. The left ventricular wall motion is normal. There is no thrombus. There is no ventricular septal defect visualized. tHERE IS A CALCIFICATION IN THE LV WELL ABOVE THE MITRAL VALVE.RECOMMEND GISSELLE. Right Ventricle The right ventricle is grossly normal size. The right ventricle is not well visualized secondary to technical limitations. Atria The right atrium is normal. The left atrial size is normal. The interatrial septum is intact with no evidence for an atrial septal defect. Mitral Valve There is no evidence of mitral valve prolapse. There is no vegetation seen on the mitral valve. There is no mitral valve stenosis. There is a mild amount of mitral regurgitation. Aortic Valve There is no aortic valvular vegetation. There is no aortic valve stenosis. There is no LVOT obstruction. No aortic regurgitation is present. Tricuspid Valve There is no tricuspid valve vegetation. There is no tricuspid stenosis. There is a mild amount of tricuspid regurgitation. There is mild pulmonary hypertension by echo. RVSP is 41 mm of Hg , with RA mean of 10. Pulmonic Valve There is no pulmonic valvular stenosis. There is no pulmonic valvular regurgitation. Great Vessels The aortic root is normal size. Effusions There is no pericardial effusion. : APRIL MICHELLE > Tanna Liu
[2017-10-27] MEDS: TRAZODONE HCL 50 MG TABLET PO SCH (21:11)
[2017-10-28] MEDS: VANCOMYCIN HCL 1,000 MG in DEXTROSE 5%-WATER 250 ML IV SCH ×2 (03:31→17:18)
[2017-10-28] MEDS: LANSOPRAZOLE 30 MG TAB.RAP.DR PO SCH (05:55)
[2017-10-28] MEDS: MEROPENEM 1 GM in NORMAL SALINE 50 ML IV SCH ×3 (05:56→21:48)
[2017-10-28 06:35] LABS: ABSOLUTE BASOPHILS # (AUTO) 0.1 10^3/uL (0.0-0.2); ABSOLUTE EOSINOPHILS # (AUTO) 0.1 10^3/uL (0.0-0.6); ABSOLUTE LYMPHOCYTES (AUTO) 1.6 10^3/uL (0.5-4.7); ABSOLUTE MONOCYTES (AUTO) 1.1 10^3/uL (0.1-1.4); ABSOLUTE NEUT (AUTO) 11.5 10^3/uL (1.7-8.2); BASOPHILS % (AUTO) 0.7 % (0-2); EOSINOPHILS % (AUTO) 0.6 % (0-6); HEMATOCRIT 30.4 % (37.9-51.0); HEMOGLOBIN 10.8 g/dL (13.5-17.0); LYMPHOCYTES % (AUTO) 11.2 % (13-45); MEAN CORPUSCULAR HEMOGLOBIN 32.5 pg (27.0-33.4); MEAN CORPUSCULAR HGB CONC 35.5 g/dL (32.0-36.0); MEAN CORPUSCULAR VOLUME 92 fl (80-97); MONOCYTES % (AUTO) 7.6 % (3-13); RED BLOOD COUNT 3.32 10^6/uL (4.35-5.55); RED CELL DISTRIBUTION WIDTH 12.3 % (11.5-14.0); SEGMENTED NEUTROPHILS % (AUTO) 79.9 % (42-78); WHITE BLOOD COUNT 14.4 10^3/uL (4.0-10.5)
[2017-10-28 07:07] LABS: ANION GAP 10 (5-19); BLOOD UREA NITROGEN 7 mg/dL (7-20); CALCIUM 9.8 mg/dL (8.4-10.2); CARBON DIOXIDE 25 mmol/L (22-30); CHLORIDE 95 mmol/L (98-107); CREATININE RESULT 0.58 mg/dL (0.52-1.25); GLUCOSE 83 mg/dL (75-110); MAGNESIUM 1.9 mg/dL (1.6-2.3); POTASSIUM 4.4 mmol/L (3.6-5.0); SODIUM 129.5 mmol/L (137-145)
[2017-10-28] MEDS: ASPIRIN 81 MG TABLET, CHEWABLE PO SCH (09:59)
[2017-10-28] MEDS: FINASTERIDE 5 MG TABLET PO SCH (09:59)
[2017-10-28] MEDS: METOPROLOL TARTRATE 25 MG TABLET PO SCH ×2 (09:59→21:47)
[2017-10-28] MEDS: ENOXAPARIN SODIUM INJ 40 MG/0.4 ML DISP.SYRIN SUBCUT SCH (09:59)
[2017-10-28] MEDS: CLOPIDOGREL BISULFATE 75 MG TABLET PO SCH (10:00)
--- NOTE | 2017-10-28 10:52 | PDOC PROGRESS REPORT ---
Subjective Progress Note for:: 10/28/17 Subjective:: Patient was sitting up yesterday it seemed like he had a better day yesterday, seemed less confused. Do not see any reports overnight of confusion. Reason For Visit: AFIB WITH RVR Physical Exam Vital Signs: Temp Pulse Resp BP Pulse Ox 98.8 F 85 16 101/47 L 100 10/28/17 07:45 10/28/17 07:45 10/28/17 07:45 10/28/17 07:45 10/28/17 07:45 Intake & Output 10/27/17 10/28/17 10/29/17 06:59 06:59 06:59 Intake Total 1060 1487 Output Total 940 300 Balance 120 1187 Weight 55.1 kg 52.5 kg General appearance: PRESENT: no acute distress, well-developed, well-nourished Head exam: PRESENT: atraumatic, normocephalic Eye exam: PRESENT: conjunctiva pink, EOMI, PERRLA. ABSENT: scleral icterus Ear exam: PRESENT: normal external ear exam Mouth exam: PRESENT: moist, tongue midline Neck exam: ABSENT: carotid bruit, JVD, lymphadenopathy, thyromegaly Respiratory exam: PRESENT: clear to auscultation cally. ABSENT: rales, rhonchi, wheezes Cardiovascular exam: PRESENT: RRR. ABSENT: diastolic murmur, rubs, systolic murmur Pulses: PRESENT: normal dorsalis pedis pul Vascular exam: PRESENT: normal capillary refill GI/Abdominal exam: PRESENT: normal bowel sounds, soft. ABSENT: distended, guarding, mass, organolmegaly, rebound, tenderness Rectal exam: PRESENT: deferred Extremities exam: PRESENT: full ROM. ABSENT: calf tenderness, clubbing, pedal edema Neurological exam: PRESENT: alert, awake, oriented to person, oriented to place , oriented to time, oriented to situation, CN II-XII grossly intact. ABSENT: motor sensory deficit Psychiatric exam: PRESENT: appropriate affect, normal mood. ABSENT: homicidal ideation, suicidal ideation Skin exam: PRESENT: dry, intact, warm. ABSENT: cyanosis, rash Results Laboratory Results: 10/28/17 05:54 10/28/17 05:54 10/28/17 10/28/17 05:54 05:54 WBC 14.4 H RBC 3.32 L Hgb 10.8 L Hct 30.4 L MCV 92 MCH 32.5 MCHC 35.5 RDW 12.3 Plt Count 266 Seg Neutrophils % 79.9 H Lymphocytes % 11.2 L Monocytes % 7.6 Eosinophils % 0.6 Basophils % 0.7 Absolute Neutrophils 11.5 H Absolute Lymphocytes 1.6 Absolute Monocytes 1.1 Absolute Eosinophils 0.1 Absolute Basophils 0.1 Sodium 129.5 L Potassium 4.4 Chloride 95 L Carbon Dioxide 25 Anion Gap 10 BUN 7 Creatinine 0.58 Est GFR ( Amer) > 60 Est GFR (Non-Af Amer) > 60 Glucose 83 Calcium 9.8 Magnesium 1.9 10/25/17 20:00 Clean Catch Midstream Urine Culture - Final NO GROWTH 2 DAYS 10/17/17 10/19/17 10/25/17 20:25 04:33 09:23 Troponin I 0.016 < 0.012 NT-Pro-B Natriuret Pep 1580 H Impressions: Abdomen/Pelvis CT 10/18/17 00:00 IMPRESSION: No metastatic lesions identified. Chest CT 10/18/17 00:00 IMPRESSION: T11 compression fracture of undetermined chronicity. Extensive soft tissue mass in the distal 2/3 of the esophagus. No adenopathy or parenchymal masses. Chest X-Ray 10/25/17 00:00 IMPRESSION: MINIMAL LEFT BASILAR ATELECTASIS VERSUS FAINT INFILTRATE AND PROBABLE SMALL PLEURAL EFFUSION. Chest/Abdomen CTA 10/25/17 00:00 IMPRESSION: 1. There is no evidence of pulmonary emboli. 2. Esophageal mass versus hiatal hernia. GI consultation recommended. Head MRI 10/26/17 10:39 IMPRESSION: ATROPHY AND CHRONIC MICRO-VASCULAR ISCHEMIC CHANGES. OTHERWISE UNREMARKABLE MRI OF THE BRAIN WITHOUT AND WITH INTRAVENOUS GADOLINIUM CONTRAST. EVIDENCE OF ACUTE STROKE: NO. Assessment & Plan - Diagnosis (1) Esophageal cancer Qualifiers: Malignant neoplasm of esophagus location: lower third Qualified Code(s): C15.5 - Malignant neoplasm of lower third of esophagus Is this a current diagnosis for this admission?: Yes Plan: As noted previously, CRUZITO'd PET, had long conversation with daughter about his current status, she brought up the possibility of PTSD, the patient has known PTSD and was on some sort of a medication possibly psychiatric for this for many years, she is going to try and find out more about this through his and then discuss this with the hospitalist and nursing to reinitiate. Otherwise , we will continue to monitor. Once the confusion is improved and his performance status improves, and he can be discharged home, we can reorder the PET/CT and further staging and then consider further therapy. - Time Time Spent with patient: 35 or more minutes - Inpatient Certification Based on my medical assessment, after consideration of the patient's comorbidities, presenting symptoms, or acuity I expect that the services needed warrant INPATIENT care.: Yes I certify that my determination is in accordance with my understanding of Medicare's requirements for reasonable and necessary INPATIENT services [42 CFR 412.3e].: Yes Medical Necessity: Other - confusion, hyponatremia
--- NOTE | 2017-10-28 11:03 | PDOC PROGRESS REPORT ---
Subjective Progress Note for:: 10/28/17 Subjective:: Previous hospital summary entered by Shirin Bear: the patient is a 77-year- old male who presented to the emergency room after having a choking episode at home. He was found to have a distal esophageal mass. 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 The patient has been seen by the oncology service and initially plans were for him to go home and follow-up as an outpatient for a PET CT scan and further workup. However the patient has had worsening status. He has a history for the past year or 2 of worsening hyponatremia. His sodium level began to acutely worsen and his he developed worsening leukocytosis and sepsis with a probable bacterial infection of unknown origin. The patient has SIADH and in spite of appropriate fluid restriction his sodium level continued to decline. Nephrology was consulted and the patient was started on tolvaptan. He became significantly tachycardic and hypotensive. Was felt that he was developing sepsis and he was started on broad-spectrum antibiotics. Yesterday afternoon the patient's leukocytosis significantly worsened and he developed tachycardia and became hypotensive. The patient did receive normal saline bolus. This did not improve his sodium level as well. He was started on broad-spectrum IV antibiotics with IV vancomycin and meropenem. Blood cultures 2 were drawn, UA and urine culture was obtained. He previously had had a CT scan of the chest abdomen and pelvis which revealed localized disease with his esophageal mass. He had a repeat CT angiography yesterday to rule out pulmonary embolism which did not reveal any evidence of pneumonia. Today I spoke to oncology regarding the plan of care. At this point due to his debility, sepsis and hyponatremia he would not be a candidate for any aggressive workup. It is felt that further workup for his cancer needs to happen after he recuperates from this acute illness. He had been scheduled for a PET CT scan this coming Sunday evening. Unfortunately even though he has been seen by multiple doctors there has not been good communication with the family. I did sit down with them today for quite some time to go over the most recent events. The patient's is his surrogate decision maker however the patient has 2 daughters who are both nurses that work at [employer] in [place]. Veronica Woodson , Sandra Palacios . The patient's wifes number is in the chart. I have assured them that we will communicate better going forward. Subjective course of 4 10/28/2017: Yesterday, I was able to speak to the patient 's , Amanda. Apparently, the patient has had a long history of hyponatremia. This is been present for many years. Today, the patient states that he is feeling better. He slept well. He was aware that he was in the hospital today which was an improvement from yesterday. However, he did not recall why he came in. Also, he did not recall being told that he has esophageal cancer. I did explain the tests that were performed this hospitalization, the plans going forward and I did explain why he is still receiving antibiotics. The patient's also told me yesterday that he is having some issues with dementia and this appears to be a chronic issue. He also mentioned that the patient is supposed to be taking trazodone for PTSD. This was not on his medication list in the hospital. Therefore, I started it yesterday. Reason For Visit: AFIB WITH RVR Physical Exam Vital Signs: Temp Pulse Resp BP Pulse Ox 98.8 F 85 16 101/47 L 100 10/28/17 07:45 10/28/17 07:45 10/28/17 07:45 10/28/17 07:45 10/28/17 07:45 Intake & Output 10/27/17 10/28/17 10/29/17 06:59 06:59 06:59 Intake Total 1060 1487 Output Total 940 300 Balance 120 1187 Weight 55.1 kg 52.5 kg Additional comments: The patient was sitting up in bed. He was trying to make a phone call. He does not appear to be in any distress. He does not appear to be toxic at all. Again, his mentation does appear to be improved today as he does not know that he is in the hospital and he identified the correct name of the hospital in the correct city. His facial appearance is normal. His lungs did demonstrate scattered crackles throughout the posterior lung soria. These partially cleared with a cough. His cardiac exam is regular without murmurs, gallops or rubs. The abdomen is soft and flat. Bowel sounds are present. The patient does not have guarding or rebound present and there are no hernias or masses present. Lower extremities are warm to touch without edema. The skin is warm, dry and intact without lesions or rashes. Results Laboratory Results: 10/28/17 05:54 10/28/17 05:54 10/28/17 10/28/17 05:54 05:54 WBC 14.4 H RBC 3.32 L Hgb 10.8 L Hct 30.4 L MCV 92 MCH 32.5 MCHC 35.5 RDW 12.3 Plt Count 266 Seg Neutrophils % 79.9 H Lymphocytes % 11.2 L Monocytes % 7.6 Eosinophils % 0.6 Basophils % 0.7 Absolute Neutrophils 11.5 H Absolute Lymphocytes 1.6 Absolute Monocytes 1.1 Absolute Eosinophils 0.1 Absolute Basophils 0.1 Sodium 129.5 L Potassium 4.4 Chloride 95 L Carbon Dioxide 25 Anion Gap 10 BUN 7 Creatinine 0.58 Est GFR ( Amer) > 60 Est GFR (Non-Af Amer) > 60 Glucose 83 Calcium 9.8 Magnesium 1.9 10/25/17 20:00 Clean Catch Midstream Urine Culture - Final NO GROWTH 2 DAYS 10/17/17 10/19/17 10/25/17 20:25 04:33 09:23 Troponin I 0.016 < 0.012 NT-Pro-B Natriuret Pep 1580 H Impressions: Abdomen/Pelvis CT 10/18/17 00:00 IMPRESSION: No metastatic lesions identified. Chest CT 10/18/17 00:00 IMPRESSION: T11 compression fracture of undetermined chronicity. Extensive soft tissue mass in the distal 2/3 of the esophagus. No adenopathy or parenchymal masses. Chest X-Ray 10/25/17 00:00 IMPRESSION: MINIMAL LEFT BASILAR ATELECTASIS VERSUS FAINT INFILTRATE AND PROBABLE SMALL PLEURAL EFFUSION. Chest/Abdomen CTA 10/25/17 00:00 IMPRESSION: 1. There is no evidence of pulmonary emboli. 2. Esophageal mass versus hiatal hernia. GI consultation recommended. Head MRI 10/26/17 10:39 IMPRESSION: ATROPHY AND CHRONIC MICRO-VASCULAR ISCHEMIC CHANGES. OTHERWISE UNREMARKABLE MRI OF THE BRAIN WITHOUT AND WITH INTRAVENOUS GADOLINIUM CONTRAST. EVIDENCE OF ACUTE STROKE: NO. Assessment & Plan - Diagnosis (1) Acute metabolic encephalopathy Is this a current diagnosis for this admission?: Yes Plan: Improving. This is likely improve secondary to improvement in sodium. Note the patient has chronic hyponatremia and we do not need to strive for normal sodium. (2) Anemia Is this a current diagnosis for this admission?: Yes Plan: Stable. There is no requirement for transfusion. (3) Atrial fibrillation with RVR Is this a current diagnosis for this admission?: Yes Plan: Resolved. The patient is not a candidate for anticoagulation. (4) Bacterial infection Is this a current diagnosis for this admission?: Yes Plan: The patient's leukocytosis is improving. When I spoke to the patient's yesterday she mentioned that there may have been an abscess underneath the mass. However, the pathology report does not indicate this. In any event the patient is responding to vancomycin and meropenem both clinically and with reduction in leukocytosis. Therefore, I would recommend treatment for a total of 5-7 days. (5) Dysphagia Qualifiers: Dysphagia type: esophageal phase Qualified Code(s): R13.10 - Dysphagia, unspecified Is this a current diagnosis for this admission?: Yes Plan: Patient may require resection if he is a candidate. If he is not a candidate based on further staging he may require a stent and/or PEG placement. (6) Hyponatremia Is this a current diagnosis for this admission?: Yes Plan: Stable. (7) Occult blood in stools Is this a current diagnosis for this admission?: Yes (8) Sepsis Is this a current diagnosis for this admission?: Yes Plan: Clinically, resolving. (9) Squamous cell carcinoma in situ Is this a current diagnosis for this admission?: Yes Plan: Pet Scan has been canceled for today. I appreciate input from oncology and gastroenterology. - Time Time Spent with patient: 25-34 minutes - Inpatient Certification Medical Necessity: Need for IV Antibiotics
[2017-10-28] MEDS: TRAZODONE HCL 50 MG TABLET PO SCH (21:47)
[2017-10-29] MEDS: VANCOMYCIN HCL 1,000 MG in DEXTROSE 5%-WATER 250 ML IV SCH (03:12)
[2017-10-29 05:24] LABS: HEMATOCRIT 30.9 % (37.9-51.0); HEMOGLOBIN 10.9 g/dL (13.5-17.0); HGB HCT DIFFERENCE 1.8; MEAN CORPUSCULAR HEMOGLOBIN 32.1 pg (27.0-33.4); MEAN CORPUSCULAR HGB CONC 35.3 g/dL (32.0-36.0); MEAN CORPUSCULAR VOLUME 91 fl (80-97); RED BLOOD COUNT 3.39 10^6/uL (4.35-5.55); RED CELL DISTRIBUTION WIDTH 12.3 % (11.5-14.0); WHITE BLOOD COUNT 13.9 10^3/uL (4.0-10.5)
[2017-10-29] MEDS: LANSOPRAZOLE 30 MG TAB.RAP.DR PO SCH (05:29)
[2017-10-29] MEDS: MEROPENEM 1 GM in NORMAL SALINE 50 ML IV SCH (05:30)
[2017-10-29 05:42] LABS: ANION GAP 7 (5-19); BLOOD UREA NITROGEN 9 mg/dL (7-20); CALCIUM 9.6 mg/dL (8.4-10.2); CARBON DIOXIDE 27 mmol/L (22-30); CHLORIDE 95 mmol/L (98-107); CREATININE RESULT 0.62 mg/dL (0.52-1.25); GLUCOSE 94 mg/dL (75-110); SODIUM 129.1 mmol/L (137-145)
--- NOTE | 2017-10-29 08:08 | PDOC PROGRESS REPORT ---
Subjective Progress Note for:: 10/29/17 Subjective:: Patient without complaints today. Family is not present. He is again anxious to go home. He denies any pain. He states that he has been up walking without difficulty. He denies bowel or bladder issues. Reason For Visit: AFIB WITH RVR Physical Exam Vital Signs: Temp Pulse Resp BP Pulse Ox 98.2 F 71 18 119/47 L 95 10/29/17 03:41 10/29/17 03:41 10/29/17 03:41 10/29/17 03:41 10/29/17 03:41 Intake & Output 10/28/17 10/29/17 10/30/17 06:59 06:59 06:59 Intake Total 1487 1561 Output Total 300 1450 Balance 1187 111 Weight 52.5 kg 52.7 kg General appearance: PRESENT: no acute distress, thin Respiratory exam: PRESENT: clear to auscultation cally Cardiovascular exam: PRESENT: RRR. ABSENT: systolic murmur Pulses: PRESENT: normal dorsalis pedis pul Extremities exam: ABSENT: pedal edema Neurological exam: PRESENT: alert, awake Focused psych exam: PRESENT: other - Pleasantly confused. Results Laboratory Results: 10/29/17 05:02 10/29/17 05:02 10/29/17 10/29/17 05:02 05:02 WBC 13.9 H RBC 3.39 L Hgb 10.9 L Hct 30.9 L MCV 91 MCH 32.1 MCHC 35.3 RDW 12.3 Plt Count 268 Sodium 129.1 L Potassium 4.0 Chloride 95 L Carbon Dioxide 27 Anion Gap 7 BUN 9 Creatinine 0.62 Est GFR ( Amer) > 60 Est GFR (Non-Af Amer) > 60 Glucose 94 Calcium 9.6 10/17/17 10/19/17 10/25/17 20:25 04:33 09:23 Troponin I 0.016 < 0.012 NT-Pro-B Natriuret Pep 1580 H Impressions: Abdomen/Pelvis CT 10/18/17 00:00 IMPRESSION: No metastatic lesions identified. Chest CT 10/18/17 00:00 IMPRESSION: T11 compression fracture of undetermined chronicity. Extensive soft tissue mass in the distal 2/3 of the esophagus. No adenopathy or parenchymal masses. Chest X-Ray 10/25/17 00:00 IMPRESSION: MINIMAL LEFT BASILAR ATELECTASIS VERSUS FAINT INFILTRATE AND PROBABLE SMALL PLEURAL EFFUSION. Chest/Abdomen CTA 10/25/17 00:00 IMPRESSION: 1. There is no evidence of pulmonary emboli. 2. Esophageal mass versus hiatal hernia. GI consultation recommended. Head MRI 10/26/17 10:39 IMPRESSION: ATROPHY AND CHRONIC MICRO-VASCULAR ISCHEMIC CHANGES. OTHERWISE UNREMARKABLE MRI OF THE BRAIN WITHOUT AND WITH INTRAVENOUS GADOLINIUM CONTRAST. EVIDENCE OF ACUTE STROKE: NO. 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 (2) Malnutrition Qualifiers: Malnutrition type: protein-calorie malnutrition Is this a current diagnosis for this admission?: Yes Plan: He continues to loose weight. Unsure if this is due to swallowing difficulties from the cancer, or lack of appetite. (3) Frequent falls Is this a current diagnosis for this admission?: Yes - Plan Summary Plan Summary: I am still concerned about his dementia/performance status. Will need to have further discussions with the family in the future as to how aggressive patient wishes to be. He would be a great candidate for Hospice if this is what family choose. His Na is stable. His cultures have been negative.
[2017-10-29] MEDS: ENOXAPARIN SODIUM INJ 40 MG/0.4 ML DISP.SYRIN SUBCUT SCH (10:13)
[2017-10-29] MEDS: CLOPIDOGREL BISULFATE 75 MG TABLET PO SCH (10:14)
[2017-10-29] MEDS: ASPIRIN 81 MG TABLET, CHEWABLE PO SCH (10:14)
[2017-10-29] MEDS: METOPROLOL TARTRATE 25 MG TABLET PO SCH ×2 (10:14→21:32)
[2017-10-29] MEDS: FINASTERIDE 5 MG TABLET PO SCH (10:14)
--- NOTE | 2017-10-29 11:18 | PDOC PROGRESS REPORT ---
Subjective Progress Note for:: 10/29/17 Subjective:: Previous hospital summary entered by Shirin Bear: the patient is a 77-year- old male who presented to the emergency room after having a choking episode at home. He was found to have a distal esophageal mass. 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 The patient has been seen by the oncology service and initially plans were for him to go home and follow-up as an outpatient for a PET CT scan and further workup. However the patient has had worsening status. He has a history for the past year or 2 of worsening hyponatremia. His sodium level began to acutely worsen and his he developed worsening leukocytosis and sepsis with a probable bacterial infection of unknown origin. The patient has SIADH and in spite of appropriate fluid restriction his sodium level continued to decline. Nephrology was consulted and the patient was started on tolvaptan. He became significantly tachycardic and hypotensive. Was felt that he was developing sepsis and he was started on broad-spectrum antibiotics. Yesterday afternoon the patient's leukocytosis significantly worsened and he developed tachycardia and became hypotensive. The patient did receive normal saline bolus. This did not improve his sodium level as well. He was started on broad-spectrum IV antibiotics with IV vancomycin and meropenem. Blood cultures 2 were drawn, UA and urine culture was obtained. He previously had had a CT scan of the chest abdomen and pelvis which revealed localized disease with his esophageal mass. He had a repeat CT angiography yesterday to rule out pulmonary embolism which did not reveal any evidence of pneumonia. Today I spoke to oncology regarding the plan of care. At this point due to his debility, sepsis and hyponatremia he would not be a candidate for any aggressive workup. It is felt that further workup for his cancer needs to happen after he recuperates from this acute illness. He had been scheduled for a PET CT scan this coming Sunday evening. Unfortunately even though he has been seen by multiple doctors there has not been good communication with the family. I did sit down with them today for quite some time to go over the most recent events. The patient's is his surrogate decision maker however the patient has 2 daughters who are both nurses that work at [employer] in [place]. Veronica oWodson , Sandra Palacios . The patient's is Amanda. Her number is . I have assured them that we will communicate better going forward. Summary of CARE from 10/27/2017 through 10/29/2017: The patient appears to have had a clinical improvement over the weekend. His blood pressures are low but stable. He has not had any elevated temperatures. His leukocytosis appears to be responding to vancomycin and meropenem. I discussed the patient's here with his on Sunday. At this point time we are continuing with antibiotics for the presumption of sepsis. This could be secondary to an abscess underneath the esophageal mass. Cultures remain negative. Today, I am going to stop IV antibiotics and place the patient on oral antibiotics. If he continues to improve I think it would be safe to discharge him in the next 24 hours. The patient does appear to have advanced dementia. His mentioned that he has pre-dementia but she does agree that his memory has gotten a lot worse in the hospital. The patient is not aware that he has esophageal cancer and I have not continually reorienting him. Based on his dementia he does not appear to be an ideal candidate for therapy for esophageal cancer. Per the note from oncology today he would be a good candidate for hospice. The last note from gastroenterology recommended that he may require a PEG going forward for for comfort and nutrition versus a stent. Is not that the PET scan which was going to be done on Sunday was canceled secondary to the patient's poor performance status. Reason For Visit: AFIB WITH RVR Physical Exam Vital Signs: Temp Pulse Resp BP Pulse Ox 99.0 F 78 16 100/62 96 10/29/17 07:25 10/29/17 07:25 10/29/17 07:25 10/29/17 08:00 10/29/17 07:25 Intake & Output 10/28/17 10/29/17 10/30/17 06:59 06:59 06:59 Intake Total 1487 1561 Output Total 300 1450 Balance 1187 111 Weight 52.5 kg 52.7 kg Additional comments: The patient appears well. In fact, he has not appeared toxic or sick all weekend. His facial appearance is unremarkable. He is thin but not cachectic. His lungs are clear to auscultation today. His cardiac exam is regular without murmurs, gallops or rubs. The abdomen is soft and flat. Bowel sounds are present in the lower quadrants. There is no guarding or rebound noted and there are no hernias or masses present. The lower extremities are warm to touch without any pitting edema. The skin is warm, dry and intact without lesions or rashes. Results Laboratory Results: 10/29/17 05:02 10/29/17 05:02 10/29/17 10/29/17 05:02 05:02 WBC 13.9 H RBC 3.39 L Hgb 10.9 L Hct 30.9 L MCV 91 MCH 32.1 MCHC 35.3 RDW 12.3 Plt Count 268 Sodium 129.1 L Potassium 4.0 Chloride 95 L Carbon Dioxide 27 Anion Gap 7 BUN 9 Creatinine 0.62 Est GFR ( Amer) > 60 Est GFR (Non-Af Amer) > 60 Glucose 94 Calcium 9.6 10/17/17 10/19/17 10/25/17 20:25 04:33 09:23 Troponin I 0.016 < 0.012 NT-Pro-B Natriuret Pep 1580 H Impressions: Abdomen/Pelvis CT 10/18/17 00:00 IMPRESSION: No metastatic lesions identified. Chest CT 10/18/17 00:00 IMPRESSION: T11 compression fracture of undetermined chronicity. Extensive soft tissue mass in the distal 2/3 of the esophagus. No adenopathy or parenchymal masses. Chest X-Ray 10/25/17 00:00 IMPRESSION: MINIMAL LEFT BASILAR ATELECTASIS VERSUS FAINT INFILTRATE AND PROBABLE SMALL PLEURAL EFFUSION. Chest/Abdomen CTA 10/25/17 00:00 IMPRESSION: 1. There is no evidence of pulmonary emboli. 2. Esophageal mass versus hiatal hernia. GI consultation recommended. Head MRI 10/26/17 10:39 IMPRESSION: ATROPHY AND CHRONIC MICRO-VASCULAR ISCHEMIC CHANGES. OTHERWISE UNREMARKABLE MRI OF THE BRAIN WITHOUT AND WITH INTRAVENOUS GADOLINIUM CONTRAST. EVIDENCE OF ACUTE STROKE: NO. Assessment & Plan - Diagnosis (1) Acute metabolic encephalopathy Is this a current diagnosis for this admission?: Yes Plan: Improving. This is likely improve secondary to improvement in sodium. Note the patient has chronic hyponatremia and we do not need to strive for normal sodium. (2) Anemia Is this a current diagnosis for this admission?: Yes Plan: Stable. There is no requirement for transfusion. (3) Atrial fibrillation with RVR Is this a current diagnosis for this admission?: Yes Plan: Resolved. The patient is not a candidate for anticoagulation. (4) Bacterial infection Is this a current diagnosis for this admission?: Yes Plan: We will discontinue IV antibiotics today. I will place the patient on an oral antibiotic to cover gram positives, gram negatives and anaerobes. If the patient remained stable and his leukocytosis is stable to improved I feel that he can likely be discharged in 24 hours.. (5) Dysphagia Qualifiers: Dysphagia type: esophageal phase Qualified Code(s): R13.10 - Dysphagia, unspecified Is this a current diagnosis for this admission?: Yes Plan: Patient may require resection if he is a candidate. If he is not a candidate based on further staging he may require a stent and/or PEG placement. (6) Hyponatremia Is this a current diagnosis for this admission?: Yes Plan: Stable. (7) Occult blood in stools Is this a current diagnosis for this admission?: Yes (8) Sepsis Is this a current diagnosis for this admission?: Yes Plan: Clinically, resolving. (9) Squamous cell carcinoma in situ Is this a current diagnosis for this admission?: Yes Plan: Based on the patient's poor performance status he may not be an ideal candidate for therapy. The PET scan that was ordered on Sunday was canceled. If treatment going forward is considered an option then this will need to be rescheduled. - Time Time Spent with patient: 25-34 minutes - Inpatient Certification Medical Necessity: Significant Comorbidiites Make Outpatient Treatment Too Risky , Risk of Complication if Not Cared For in Hospital
[2017-10-29] MEDS: AMOXICILLIN TR/POT CLAVULANATE 500-125 MG TAB PO SCH ×2 (12:57→16:54)
[2017-10-29 13:07] LABS: APPEARANCE,URINE CLOUDY; BILIRUBIN,URINE NEGATIVE (NEGATIVE); GLUCOSE, URINE NEGATIVE (NEGATIVE); KETONES,URINE TRACE mg/dL (NEGATIVE); LEUKOCYTE ESTERASE,URINE NEGATIVE (NEGATIVE); NITRITE,URINE NEGATIVE (NEGATIVE); PROTEIN,URINE NEGATIVE (NEGATIVE); URINE SPECIFIC GRAVITY 1.012; UROBILINOGEN,URINE NEGATIVE mg/dL (<2.0)
[2017-10-29] MEDS: TRAZODONE HCL 50 MG TABLET PO SCH (21:32)
[2017-10-30 04:44] LABS: ABSOLUTE BASOPHILS # (AUTO) 0.2 10^3/uL (0.0-0.2); ABSOLUTE EOSINOPHILS # (AUTO) 0.2 10^3/uL (0.0-0.6); ABSOLUTE LYMPHOCYTES (AUTO) 1.8 10^3/uL (0.5-4.7); ABSOLUTE MONOCYTES (AUTO) 1.3 10^3/uL (0.1-1.4); ABSOLUTE NEUT (AUTO) 10.5 10^3/uL (1.7-8.2); BASOPHILS % (AUTO) 1.2 % (0-2); EOSINOPHILS % (AUTO) 1.2 % (0-6); HEMATOCRIT 29.1 % (37.9-51.0); HEMOGLOBIN 10.2 g/dL (13.5-17.0); HGB HCT DIFFERENCE 1.5; MEAN CORPUSCULAR HEMOGLOBIN 31.9 pg (27.0-33.4); MEAN CORPUSCULAR VOLUME 91 fl (80-97); MONOCYTES % (AUTO) 9.2 % (3-13); RED BLOOD COUNT 3.19 10^6/uL (4.35-5.55); RED CELL DISTRIBUTION WIDTH 12.3 % (11.5-14.0); SEGMENTED NEUTROPHILS % (AUTO) 75.4 % (42-78); WHITE BLOOD COUNT 13.9 10^3/uL (4.0-10.5)
[2017-10-30] MEDS: LANSOPRAZOLE 30 MG TAB.RAP.DR PO SCH (05:02)
[2017-10-30 05:15] LABS: ANION GAP 5 (5-19); BLOOD UREA NITROGEN 10 mg/dL (7-20); CALCIUM 9.7 mg/dL (8.4-10.2); CARBON DIOXIDE 27 mmol/L (22-30); CHLORIDE 98 mmol/L (98-107); CREATININE RESULT 0.65 mg/dL (0.52-1.25); GLUCOSE 80 mg/dL (75-110); POTASSIUM 4.2 mmol/L (3.6-5.0); SODIUM 130.3 mmol/L (137-145)
[2017-10-30] MEDS: ASPIRIN 81 MG TABLET, CHEWABLE PO SCH (09:14)
[2017-10-30] MEDS: FINASTERIDE 5 MG TABLET PO SCH (09:14)
[2017-10-30] MEDS: CLOPIDOGREL BISULFATE 75 MG TABLET PO SCH (09:14)
[2017-10-30] MEDS: AMOXICILLIN TR/POT CLAVULANATE 500-125 MG TAB PO SCH ×3 (09:14→17:04)
[2017-10-30] MEDS: METOPROLOL TARTRATE 25 MG TABLET PO SCH ×2 (09:14→22:06)
[2017-10-30] MEDS: ENOXAPARIN SODIUM INJ 40 MG/0.4 ML DISP.SYRIN SUBCUT SCH (09:14)
[2017-10-30] MEDS: LACTOBACILLUS ACIDOPHILUS 250 MG TAB PO SCH (13:43)
--- NOTE | 2017-10-30 18:05 | PDOC PROGRESS REPORT ---
Subjective Progress Note for:: 10/30/17 Subjective:: The patient is a 77-year-old gentleman who presented to the hospital after having a choking episode at home and was found to have a distal esophageal mass. 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 His hospital course was complicated by hyponatremia and leukocytosis and sepsis which is felt to be most likely due to infection in his tumor. He was started on broad-spectrum antibiotics and has been taking yogurt and pudding by mouth and tolerating this well. At this time the plan is to discharge him home with home health and home physical therapy. He has no complaints. I met his at the bedside and we discussed the plan of care Reason For Visit: AFIB WITH RVR Physical Exam Vital Signs: Temp Pulse Resp BP Pulse Ox 98.8 F 81 16 95/47 L 98 10/30/17 15:48 10/30/17 15:48 10/30/17 15:48 10/30/17 15:48 10/30/17 15:48 Intake & Output 10/29/17 10/30/17 10/31/17 06:59 06:59 06:59 Intake Total 1561 520 250 Output Total 1450 625 Balance 111 -105 250 Weight 52.7 kg 52.9 kg Additional comments: Elderly gentleman sitting up in his chair eating lunch not in acute distress Lungs: Clear to auscultation bilaterally normal respiratory effort Cardiac: S1-S2 regular no murmurs heard no peripheral edema no cyanosis Abdomen: Soft, no focal tenderness normal bowel sounds noted skin: Warm and dry Results Laboratory Results: 10/30/17 04:27 10/30/17 04:27 10/30/17 10/30/17 04:27 04:27 WBC 13.9 H RBC 3.19 L Hgb 10.2 L Hct 29.1 L MCV 91 MCH 31.9 MCHC 35.0 RDW 12.3 Plt Count 264 Seg Neutrophils % 75.4 Lymphocytes % 13.0 Monocytes % 9.2 Eosinophils % 1.2 Basophils % 1.2 Absolute Neutrophils 10.5 H Absolute Lymphocytes 1.8 Absolute Monocytes 1.3 Absolute Eosinophils 0.2 Absolute Basophils 0.2 Sodium 130.3 L Potassium 4.2 Chloride 98 Carbon Dioxide 27 Anion Gap 5 BUN 10 Creatinine 0.65 Est GFR ( Amer) > 60 Est GFR (Non-Af Amer) > 60 Glucose 80 Calcium 9.7 10/17/17 10/19/17 10/25/17 20:25 04:33 09:23 Troponin I 0.016 < 0.012 NT-Pro-B Natriuret Pep 1580 H Impressions: Abdomen/Pelvis CT 10/18/17 00:00 IMPRESSION: No metastatic lesions identified. Chest CT 10/18/17 00:00 IMPRESSION: T11 compression fracture of undetermined chronicity. Extensive soft tissue mass in the distal 2/3 of the esophagus. No adenopathy or parenchymal masses. Chest X-Ray 10/25/17 00:00 IMPRESSION: MINIMAL LEFT BASILAR ATELECTASIS VERSUS FAINT INFILTRATE AND PROBABLE SMALL PLEURAL EFFUSION. Chest/Abdomen CTA 10/25/17 00:00 IMPRESSION: 1. There is no evidence of pulmonary emboli. 2. Esophageal mass versus hiatal hernia. GI consultation recommended. Head MRI 10/26/17 10:39 IMPRESSION: ATROPHY AND CHRONIC MICRO-VASCULAR ISCHEMIC CHANGES. OTHERWISE UNREMARKABLE MRI OF THE BRAIN WITHOUT AND WITH INTRAVENOUS GADOLINIUM CONTRAST. EVIDENCE OF ACUTE STROKE: NO. Assessment & Plan - Diagnosis (1) Acute metabolic encephalopathy Is this a current diagnosis for this admission?: Yes (3) Dysphagia Qualifiers: Dysphagia type: esophageal phase Qualified Code(s): R13.10 - Dysphagia, unspecified Is this a current diagnosis for this admission?: Yes (4) Esophageal cancer Qualifiers: Malignant neoplasm of esophagus location: lower third Qualified Code(s): C15.5 - Malignant neoplasm of lower third of esophagus Is this a current diagnosis for this admission?: Yes (5) SIADH (syndrome of inappropriate ADH production) Is this a current diagnosis for this admission?: Yes (6) Sepsis Is this a current diagnosis for this admission?: Yes (7) Squamous cell carcinoma in situ Is this a current diagnosis for this admission?: Yes (9) Frequent falls Is this a current diagnosis for this admission?: Yes - Time Time Spent with patient: 15-24 minutes - Plan Summary Plan Summary: Plan for discharge home tomorrow with home health and home PT. He has been switched to Augmentin and the plan is to give him a total of 10 days of antibiotics.
[2017-10-30] MEDS: TRAZODONE HCL 50 MG TABLET PO SCH (22:07)
[2017-10-31 05:00] LABS: HEMATOCRIT 28.9 % (37.9-51.0); HEMOGLOBIN 10.2 g/dL (13.5-17.0); HGB HCT DIFFERENCE 1.7; MEAN CORPUSCULAR HEMOGLOBIN 32.3 pg (27.0-33.4); MEAN CORPUSCULAR HGB CONC 35.1 g/dL (32.0-36.0); MEAN CORPUSCULAR VOLUME 92 fl (80-97); RED BLOOD COUNT 3.14 10^6/uL (4.35-5.55); RED CELL DISTRIBUTION WIDTH 12.6 % (11.5-14.0); WHITE BLOOD COUNT 14.2 10^3/uL (4.0-10.5)
[2017-10-31 05:23] LABS: ANION GAP 5 (5-19); BLOOD UREA NITROGEN 11 mg/dL (7-20); CALCIUM 10.3 mg/dL (8.4-10.2); CARBON DIOXIDE 29 mmol/L (22-30); CHLORIDE 95 mmol/L (98-107); GLUCOSE 78 mg/dL (75-110); POTASSIUM 4.4 mmol/L (3.6-5.0); SODIUM 128.6 mmol/L (137-145)
[2017-10-31] MEDS: LANSOPRAZOLE 30 MG TAB.RAP.DR PO SCH (06:00)
[2017-10-31] MEDS: AMOXICILLIN TR/POT CLAVULANATE 500-125 MG TAB PO SCH ×2 (08:40→12:20)
[2017-10-31] MEDS: ENOXAPARIN SODIUM INJ 40 MG/0.4 ML DISP.SYRIN SUBCUT SCH (10:35)
[2017-10-31] MEDS: ASPIRIN 81 MG TABLET, CHEWABLE PO SCH (10:36)
[2017-10-31] MEDS: CLOPIDOGREL BISULFATE 75 MG TABLET PO SCH (10:36)
[2017-10-31] MEDS: FINASTERIDE 5 MG TABLET PO SCH (10:36)
[2017-10-31] MEDS: METOPROLOL TARTRATE 25 MG TABLET PO SCH (10:41)
[2017-10-31] MEDS: LACTOBACILLUS ACIDOPHILUS 250 MG TAB PO SCH (14:09)
[2017-10-31 14:57] VITALS: BP 100/61
--- NOTE | 2017-10-31 18:23 | PDOC DISCHARGE SUMMARY ---
General - Admit/Disc Date/PCP Admission Date/Primary Care Provider: 10/17/17 17:32 JEROME MCKEON, Discharge Date: 10/31/17 - Discharge Diagnosis (1) Acute metabolic encephalopathy Is this a current diagnosis for this admission?: Yes (3) Dysphagia Is this a current diagnosis for this admission?: Yes (4) Esophageal cancer Is this a current diagnosis for this admission?: Yes (5) SIADH (syndrome of inappropriate ADH production) Is this a current diagnosis for this admission?: Yes (6) Sepsis Is this a current diagnosis for this admission?: Yes (7) Squamous cell carcinoma in situ Is this a current diagnosis for this admission?: Yes (9) Frequent falls Is this a current diagnosis for this admission?: Yes - Additional Information Resuscitation Status: Do Not Resuscitate Discharge Diet: Other (Comments) Discharge Activity: Activity As Tolerated Home Medications: Aspirin [Aspirin EC] 81 mg PO DAILY 10/18/17 Clopidogrel Bisulfate [Plavix 75 mg Tablet] 75 mg PO DAILY 10/18/17 Cyanocobalamin (Vitamin B-12) [Vitamin B-12] 1,000 mcg PO DAILY 10/18/17 Docusate Sodium [Colace 100 mg Capsule] 100 mg PO DAILYP PRN 10/18/17 Finasteride [Proscar 5 mg Tablet] 5 mg PO DAILY 10/18/17 Magnesium Oxide [Mag-Ox 400 mg Tablet] 800 mg PO DAILY 10/18/17 Pantoprazole Sodium [Protonix] 40 mg PO DAILY 10/18/17 Tramadol HCl [Ultram 50 mg Tablet] 50 mg PO DAILY 10/18/17 Trazodone HCl [Desyrel] 100 mg PO QHS 10/18/17 Amox Tr/Potassium Clavulanate [Augmentin "500" Tablet] 1 tab PO MEALS 5 Days # 15 tablet 10/31/17 Aspirin [Aspirin 81 mg Chewable Tablet] 81 mg PO DAILY tab.chew 10/31/17 Clopidogrel Bisulfate [Plavix 75 mg Tablet] 75 mg PO DAILY tablet 10/31/17 Finasteride [Proscar 5 mg Tablet] 5 mg PO DAILY tablet 10/31/17 Metoprolol Tartrate [Lopressor 25 mg Tablet] 12.5 mg PO BID #30 tab 10/31/17 Trazodone HCl [Desyrel 50 mg Tablet] 100 mg PO QHS tablet 10/31/17 History of Present Illness Patient complains of: 77-year-old gentleman who presented to the hospital after a choking episode at home and he was found to have a distal esophageal mass. 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 History of Present Illness: ADAM ZELAYA is a 77 year old male Hospital Course Hospital Course: 77-year-old gentleman who presented to the hospital after a choking episode at home and he was found to have a distal esophageal mass. 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 His hospital course was complicated by hyponatremia sepsis and leukocytosis which was felt to be secondary to infection of his tumor. Hyponatremia was felt to be secondary to SIADH. He was first started on broad-spectrum antibiotics and improved and this was eventually switched to Augmentin. The patient was discharged home with home health and home physical therapy. He has been scheduled for a PET scan on Sunday. He is to follow-up with his primary care and with oncology as an outpatient. He has been tolerating a soft diet by mouth. Physical Exam Vital Signs: Temp Pulse Resp BP Pulse Ox 98.9 F 89 16 100/61 95 10/31/17 14:52 10/31/17 14:52 10/31/17 14:52 10/31/17 14:52 10/31/17 14:52 Intake & Output 10/30/17 10/31/17 11/01/17 06:59 06:59 06:59 Intake Total 520 655 Output Total 625 225 Balance -105 430 Weight 52.9 kg 55 kg Additional comments: Lungs: Clear to auscultation bilaterally Cardiac: S1-S2 regular Results Laboratory Results: 10/31/17 04:39 10/31/17 04:39 10/31/17 10/31/17 04:39 04:39 WBC 14.2 H RBC 3.14 L Hgb 10.2 L Hct 28.9 L MCV 92 MCH 32.3 MCHC 35.1 RDW 12.6 Plt Count 247 Sodium 128.6 L Potassium 4.4 Chloride 95 L Carbon Dioxide 29 Anion Gap 5 BUN 11 Creatinine 0.70 Est GFR ( Amer) > 60 Est GFR (Non-Af Amer) > 60 Glucose 78 Calcium 10.3 H 10/25/17 19:40 Blood Blood Culture - Final NO GROWTH IN 5 DAYS 10/25/17 18:00 Blood Blood Culture - Final NO GROWTH IN 5 DAYS 10/17/17 10/19/17 10/25/17 20:25 04:33 09:23 Troponin I 0.016 < 0.012 NT-Pro-B Natriuret Pep 1580 H Impressions: Abdomen/Pelvis CT 10/18/17 00:00 IMPRESSION: No metastatic lesions identified. Chest CT 10/18/17 00:00 IMPRESSION: T11 compression fracture of undetermined chronicity. Extensive soft tissue mass in the distal 2/3 of the esophagus. No adenopathy or parenchymal masses. Chest X-Ray 10/25/17 00:00 IMPRESSION: MINIMAL LEFT BASILAR ATELECTASIS VERSUS FAINT INFILTRATE AND PROBABLE SMALL PLEURAL EFFUSION. Chest/Abdomen CTA 10/25/17 00:00 IMPRESSION: 1. There is no evidence of pulmonary emboli. 2. Esophageal mass versus hiatal hernia. GI consultation recommended. Head MRI 10/26/17 10:39 IMPRESSION: ATROPHY AND CHRONIC MICRO-VASCULAR ISCHEMIC CHANGES. OTHERWISE UNREMARKABLE MRI OF THE BRAIN WITHOUT AND WITH INTRAVENOUS GADOLINIUM CONTRAST. EVIDENCE OF ACUTE STROKE: NO. Qualifiers PATEINT BEING DISCHARGED WITH ANY OF THE FOLLOWING DIAGNOSIS?: No VTE patient discharged on overlapping Therapy?: Yes Plan Time Spent: Greater than 30 Minutes
== END 2017-10-31 15:50 | disposition home health service (06) | DRG 308 ==
LOC: ER 14:33 → EH 17:32 → 3W 22:05
PROVIDERS: ADMIT Hospitalist; ATTEND Hospitalist
PROC: 3E0F73Z Introduction of Anti-inflammatory into Respiratory Tract, Via Natural or Artificial Opening (ICD-10-PCS; 2017-10-17)
PROC: 0DB68ZX Excision of Stomach, Via Natural or Artificial Opening Endoscopic, Diagnostic (ICD-10-PCS; 2017-10-18)
PROC: 0DB38ZX Excision of Lower Esophagus, Via Natural or Artificial Opening Endoscopic, Diagnostic (ICD-10-PCS; principal; 2017-10-18 14:30)
DX: I48.2 Chronic atrial fibrillation (principal); A41.9 Sepsis, unspecified organism; G93.41 Metabolic encephalopathy; E22.2 Syndrome of inappropriate secretion of antidiuretic hormone; E46 Unspecified protein-calorie malnutrition; Z68.1 Body mass index [BMI] 19.9 or less, adult; M48.54XA Collapsed vertebra, not elsewhere classified, thoracic region, initial encounter for fracture; D00.1 Carcinoma in situ of esophagus; Z66 Do not resuscitate; I10 Essential (primary) hypertension; E78.00 Pure hypercholesterolemia, unspecified; N40.0 Benign prostatic hyperplasia without lower urinary tract symptoms; K21.9 Gastro-esophageal reflux disease without esophagitis; M19.90 Unspecified osteoarthritis, unspecified site; F43.10 Post-traumatic stress disorder, unspecified; D64.9 Anemia, unspecified; H40.9 Unspecified glaucoma; G89.29 Other chronic pain; M54.9 Dorsalgia, unspecified; E83.42 Hypomagnesemia; K29.70 Gastritis, unspecified, without bleeding; R13.10 Dysphagia, unspecified; E87.6 Hypokalemia; R19.5 Other fecal abnormalities; F03.90 Unspecified dementia, unspecified severity, without behavioral disturbance, psychotic disturbance, mood disturbance, and anxiety; B96.89 Other specified bacterial agents as the cause of diseases classified elsewhere; Z91.81 History of falling; Z87.891 Personal history of nicotine dependence; Z98.49 Cataract extraction status, unspecified eye; Z79.82 Long term (current) use of aspirin; Z79.899 Other long term (current) drug therapy; Z88.6 Allergy status to analgesic agent; Z88.8 Allergy status to other drugs, medicaments and biological substances; Z80.9 Family history of malignant neoplasm, unspecified
CPT/HCPCS: 36415; 43239; 70553; 71010; 71020; 71260; 71275; 74177; 80048; 80053; 80202; 81001; 82272; 82533; 82550; 82553; 82607; 82962; 83735; 83880; 83930; 83935; 84100; 84300; 84443; 84484; 85025; 85027; 85379; 85610; 87040; 87045; 87086; 87177; 87205; 87493; 88305; 88342; 93005; 93010; 93306; 94799; 96361; 96374; 99291; A9577; G8978-GP; G8979-GP; G8987-GO; G8988-GO; G8989-GO; G8996-GN; G8997-GN; G8998-GN; J0171; J1200; J1610; J1650; J2060; J2185; J2250; J2310; J2405; J3010; J3370; J3475; J3490; J7030; J7060

== ENCOUNTER → 2017-11-04 | Outpatient (CLI) | payer MEDICARE, OTHER ==
--- NOTE | 2017-11-05 17:55 | RADIOLOGY REPORT (SQ) ---
EXAM DESCRIPTION: PET CT SKULL/THIGH COMPLETED DATE/TIME: 11/04/2017 8:36 pm REASON FOR STUDY: ESOPHAGEAL CANCER C15.9 MALIGNANT NEOPLASM OF ESOPHAGUS, UNSPECIFIED COMPARISON: CT angio chest 10/25/2017 CT chest abdomen pelvis 10/18/2017 RADIONUCLIDE AND DOSE: 12.5 mCi F18 FDG The route of agent administration: Intravenous FASTING BLOOD SUGAR: 105 mg/dl CONTRAST TYPE AND DOSE: No CT contrast given. TECHNIQUE: Blood glucose level was verified. Above dose of FDG was injected intravenously. 2-D seg mented attenuation correction images were obtained from the base of the skull to the midthighs. Nonc ontrast CT images were obtained for attenuation correction and fusion with emission images. CT image s were performed without oral or intravenous contrast and are not sensitive for parenchymal lesions. A series of overlapping emission PET images were obtained. Images reviewed and manipulated at [facility] work station by the radiologist. Images stored on PACS. LIMITATIONS: None. FINDINGS: HEAD AND NECK: No areas of abnormal metabolic activity in the soft tissues of the head and neck. CHEST: An esophageal mass is present, involving at least the distal 12 cm of the thoracic esophagus. This has SUV of 12.9. A left paratracheal 1.6 x 1.2 cm lymph node is present on axial image 57 with SUV of 8.0. An AP window 1.9 x 1.4 cm lymph node is present on axial image 67, with SUV of 7.7. ABDOMEN AND PELVIS: No areas of abnormal metabolic activity in the abdomen or pelvis. Expected physi ologic activity is present in the genitourinary system and bowel. PROXIMAL LOWER EXTREMITIES: No areas of abnormal metabolic activity in the soft tissues of the lower extremities. BONES: No abnormal metabolic activity in the visualized skeleton. ADDITIONAL CT FINDINGS: Chronic appearing T11 compression deformity. Minimal coronary artery calcifi cations. Degenerative disc changes cervical spine. OTHER: Liver background activity 1.85 SUV. Blood pool activity 1.5 SUV IMPRESSION: Malignant esophageal mass with hypermetabolic small mediastinal lymph nodes as above TECHNICAL DOCUMENTATION: JOB ID: [id number] All Rights Reserved
== END ==
LOC: RAD 18:01
PROVIDERS: ATTEND Internal Medicine Hematology & Oncology
DX: C15.9 Malignant neoplasm of esophagus, unspecified (principal)
CPT/HCPCS: 78815; A9552

== ENCOUNTER 2017-11-06 23:11 | Inpatient (IN) | payer MEDICARE, OTHER ==
[2017-11-06] MEDS ORDERED: NORMAL SALINE 1000 ML 1,000 ML IV ONE (23:57)
--- NOTE | 2017-11-07 00:07 | ER Document Report ---
ED General - General Chief Complaint: Syncope Stated Complaint: FALL Time Seen by Provider: 11/06/17 23:45 Notes: Patient is a 77-year-old male presents with complaint of an episode of falling and weakness. Patient's chief complaint on the chart was syncope; however, family members who witnessed fall say that he did not fully blackout. He was walking with a walker with assistance from his when he became very weak and went to the ground. He is on Plavix. She was recently admitted to the hospital. At that time he stayed in the hospital for approximately a week. He was found to have an esophageal mass which possible secondary infection. He was placed in on antibiotics which he finished a course yesterday. He has had no fevers. At home he is on a soft diet. He is not wanted to eat or drink much at home according to the patient and his family. Patient says it does not hurt to eat or drink he just does not have an appetite and does not feel like eating or drinking. No recent diarrhea. No associated abdominal pain. No chest pain. No shortness of breath. No headache. During his last admission he was significantly hyponatremic. No other complaints at this time. He did have a PET scan Sunday. I looked at the results of this. The PET scan showed large esophageal mass with reactive lymphadenopathy. No metastasis was seen outside the lymph nodes or esophagus. TRAVEL OUTSIDE OF THE [place] IN LAST 30 DAYS: No - Related Data Allergies/Adverse Reactions: cyclobenzaprine HCl [From Flexeril] Allergy (Intermediate, Verified 05/06/15 08: 05) Hallucinations oxycodone HCl [From Percocet] Allergy (Intermediate, Verified 05/06/15 08:05) Hallucinations hydrocodone bitartrate [From Vicodin] Adverse Reaction (Severe, Verified 08:05) Hallucinations Past Medical History - Social History Smoking Status: Unknown if Ever Smoked Frequency of alcohol use: None Drug Abuse: None Family History: None - Past Medical History Cardiac Medical History: Reports: Hx Atrial Fibrillation, Hx Hypercholesterolemia, Hx Hypertension Denies: Hx Coronary Artery Disease, Hx Heart Attack Pulmonary Medical History: Denies: Hx Asthma, Hx Bronchitis, Hx COPD, Hx Pneumonia Neurological Medical History: Denies: Hx Cerebrovascular Accident, Hx Seizures Renal/ Medical History: Reports: Hx Benign Prostatic Hyperplasia. Denies: Hx Peritoneal Dialysis GI Medical History: Reports: Hx Gastroesophageal Reflux Disease Musculoskeltal Medical History: Reports Hx Arthritis Psychiatric Medical History: Reports: Hx Post Traumatic Stress Disorder Past Surgical History: Reports: Hx Orthopedic Surgery - Left Achilles tendon repair. Status post bilateral ankle fractures., Other - Cataracts, spinal surgery, EGDs.. Denies: Hx Pacemaker - Immunizations Hx Diphtheria, Pertussis, Tetanus Vaccination: Yes Hx Pneumococcal Vaccination: 07/20/12 Review of Systems - Review of Systems Notes: My Normal Review Basic REVIEW OF SYSTEMS: CONSTITUTIONAL : Denies fever, chills, or sweats. Denies recent illness. EENT: Denies eye, ear, throat, or mouth pain or symptoms. Denies nasal or sinus congestion. CARDIOVASCULAR: Denies chest pain. RESPIRATORY: Denies cough, cold, or chest congestion. Denies shortness of breath, difficulty breathing, or wheezing. GASTROINTESTINAL: Denies abdominal pain. Denies nausea, vomiting, or diarrhea. GENITOURINARY: Denies difficulty urinating, painful urination, burning, frequency, or blood in urine. MUSCULOSKELETAL: Global weakness. SKIN: Denies rash or skin lesions. NEUROLOGICAL: Denies altered mental status or loss of consciousness. Denies headache. Denies weakness or paralysis or loss of use of either side. Denies problems with gait or speech. Denies sensory or motor loss. ALL OTHER SYSTEMS REVIEWED AND NEGATIVE. Physical Exam - Vital signs Vitals: Temp Pulse Resp BP Pulse Ox 98.5 F 102 H 16 92/46 L 90 L 11/06/17 23:28 11/06/17 23:28 11/06/17 23:28 11/06/17 23:28 11/06/17 23:28 - Notes Notes: General Appearance: Well nourished, alert, cooperative, no acute distress, no obvious discomfort. No distress. Patient is thin and weak appearing. Vitals: reviewed, See vital signs table. Head: no swelling or tenderness to the head Eyes: PERRL, EOMI, Conjuctiva clear Mouth: No decreasd moisture Throat: No tonsillar inflammation, No airway obstruction, Neck: Supple, no neck tenderness, no step-offs or deformities. Back: No thoracic or lumbar tenderness to palpation. No step-offs or deformities. Lungs: No wheezing, No rales, No rhonci, No accessory muscle use, good air exchange bilaterally. Heart: Normal rate, Regular rythm, No murmur, no rub Abdomen: Normal BS, soft, No rigidity, No abdominal tenderness, No guarding, no rebound, Extremities: strength 5/5 in all extremities, good pulses in all extremities, no swelling or tenderness in the extremities, range of motion of extremities without difficulty. Patient is able to pick his legs off the bed and hold them against gravity in the air without difficulty. Patient is able to lift his arms off the bed and hold them against gravity without difficulty. Patient does not have greater weakness on one side versus the other on my exam. No edema. Skin: warm, dry, appropriate color, no rash Neuro: speech clear, oriented x 3, normal affect, responds appropriately to questions. Distal sensation intact. Cranial nerves II through XII are intact. No focal neurologic deficits on exam. Course - Re-evaluation Re-evalutation: 11/07/17 05:23 I suspect the most likely patient's leukocytosis is related to his cancer and tumor. Not convinced there is an infection however cannot explain why his leukocytosis improved with antibiotics of his last admission. I did call and discuss this with Dr. Page, his oncologist. She agrees. At this time will admit the patient. I did talk to Dr. Raman who is starting antibiotics. I have ordered blood cultures. I did talk to her family at length as well as the patient. I informed him that most like the prognosis is not good being his age , weakness, and the size of his cancer tumor in his esophagus. I did tell them that in the long-term there may not be many good treatment options however his oncologist would discuss this with him further. They are understanding of this and seem to be accepting of this at this time. At this time we will admit him to give him IV hydration and to further delineate cause of his leukocytosis. I did discuss the case with Dr. Raman who agrees to admit the patient. Dictation of this chart was performed using voice recognition software; therefore, there may be some unintended grammatical errors. - Vital Signs Vital signs: Temp Pulse Resp BP Pulse Ox 98.5 F 102 H 26 H 117/63 95 11/06/17 23:28 11/06/17 23:28 11/07/17 03:31 11/07/17 03:31 11/07/17 03:31 - Laboratory Result Diagrams: 11/07/17 00:03 11/07/17 00:03 Laboratory results interpreted by me: 11/07/17 11/07/17 11/07/17 00:03 00:03 02:40 WBC 20.8 H RBC 3.32 L Hgb 10.8 L Hct 30.6 L Seg Neuts % (Manual) 90 H Band Neutrophils % 1 L Lymphocytes % (Manual) 7 L Monocytes % (Manual) 1 L Abs Neuts (Manual) 18.9 H Sodium 134.3 L Chloride 95 L Carbon Dioxide 32 H Glucose 112 H Calcium 10.4 H Creatine Kinase < 20 L Total Protein 6.0 L Albumin 2.9 L Urine Ascorbic Acid 40 H - EKG Interpretation by Me Additional EKG results interpreted by me: 11/07/17 00:09 EKG is reviewed and interpreted by me. EKG shows sinus tachycardia with a rate of [address] segment elevation or depression. No ischemic T-wave inversions. MT interval, QRS duration, QTc intervals are within normal range. Old EKG for comparison is from October. Discharge - Discharge Clinical Impression: Esophageal mass Leukocytosis Qualifiers: Leukocytosis type: unspecified Qualified Code(s): D72.829 - Elevated white blood cell count, unspecified Condition: Stable Disposition: ADMITTED INPATIENT Unit Admitted: Telemetry
[2017-11-07 00:27] LABS: HEMATOCRIT 30.6 % (37.9-51.0); HEMOGLOBIN 10.8 g/dL (13.5-17.0); MEAN CORPUSCULAR HEMOGLOBIN 32.6 pg (27.0-33.4); MEAN CORPUSCULAR HGB CONC 35.4 g/dL (32.0-36.0); MEAN CORPUSCULAR VOLUME 92 fl (80-97); PLATELET COUNT 255 10^3/uL (150-450); RED BLOOD COUNT 3.32 10^6/uL (4.35-5.55); WHITE BLOOD COUNT 20.8 10^3/uL (4.0-10.5)
--- NOTE | 2017-11-07 00:41 | RADIOLOGY REPORT (SQ) ---
EXAM DESCRIPTION: CHEST SINGLE VIEW CLINICAL HISTORY: 77 years, Male, cough COMPARISON: 10/25/2017. NUMBER OF VIEWS: One FINDINGS: Mild hyperinflation, small left basilar atelectasis or scar, normal cardiac silhouette, and intact bony thorax. Stable. IMPRESSION: No acute cardiopulmonary findings. 2011 [facility] [employer]- All Rights Reserved
[2017-11-07 00:48] LABS: ALANINE AMINOTRANSFERASE 25 U/L (21-72); ALBUMIN 2.9 g/dL (3.5-5.0); ALKALINE PHOSPHATASE 102 U/L (38-126); ANION GAP 7 (5-19); ASPARTATE AMINO TRANSFERASE 19 U/L (17-59); BILIRUBIN,DIRECT 0.3 mg/dL (0.0-0.4); BILIRUBIN,TOTAL 0.5 mg/dL (0.2-1.3); BLOOD UREA NITROGEN 16 mg/dL (7-20); CALCIUM 10.4 mg/dL (8.4-10.2); CARBON DIOXIDE 32 mmol/L (22-30); CHLORIDE 95 mmol/L (98-107); GLUCOSE 112 mg/dL (75-110); POTASSIUM 4.1 mmol/L (3.6-5.0); SODIUM 134.3 mmol/L (137-145)
[2017-11-07 00:49] LABS: ABSOLUTE LYMPHOCYTES# (MANUAL) 1.5 10^3/uL (0.5-4.7); ABSOLUTE MONOCYTES # (MANUAL) 0.2 10^3/uL (0.1-1.4); ABSOLUTE NEUTROPHILS# (MANUAL) 18.9 10^3/uL (1.7-8.2); BAND NEUTROPHILS % (MANUAL) 1 % (3-5); BASOPHILS % (MANUAL) 0 % (0-2); CREATINE KINASE < 20 U/L (55-170); EOSINOPHILS % (MANUAL) 1 % (0-6); LYMPHOCYTES % (MANUAL) 7 % (13-45); MONOCYTES % (MANUAL) 1 % (3-13); SEGMENTED NEUTROPHILS % (MAN) 90 % (42-78); TOTAL CELLS COUNTED 100
[2017-11-07 00:51] LABS: ACANTHOCYTES SLIGHT; OVALOCYTES SLIGHT; PLATELET COMMENT ADEQUATE; POIKILOCYTOSIS SLIGHT; TOXIC GRANULATION 1+; TOXIC VACUOLATION PRESENT
[2017-11-07 01:01] LABS: CREATINE KINASE MB < 0.22 ng/mL (<4.55); TROPONIN I < 0.012 ng/mL
--- NOTE | 2017-11-07 01:02 | RADIOLOGY REPORT (SQ) ---
EXAM DESCRIPTION: CT HEAD WITHOUT CLINICAL HISTORY: 77 years Male, fall COMPARISON: 10/01/2017. MRI, report, 10/26/2017. TECHNIQUE: No contrast. This exam was performed according to our departmental dose-optimization program, which includes automated exposure control, adjustment of the mA and/or kV according to patient size and/or use of iterative reconstruction technique. FINDINGS: Mild cerebral volume loss, moderate confluent white matter microangiopathy, mild ex vacuo enlargement of the ventricular system, atherosclerosis, and minimal left inferior maxillary mucosal thickening. No evidence of hemorrhage or infarct. No mass, mass effect, or midline shift. Extra-axial structures appear otherwise grossly intact. IMPRESSION: No acute findings.
[2017-11-07 02:53] LABS: APPEARANCE,URINE SLIGHTLY-CLOUDY; BILIRUBIN,URINE NEGATIVE (NEGATIVE); COLOR,URINE YELLOW; GLUCOSE, URINE NEGATIVE (NEGATIVE); KETONES,URINE NEGATIVE (NEGATIVE); LEUKOCYTE ESTERASE,URINE NEGATIVE (NEGATIVE); NITRITE,URINE NEGATIVE (NEGATIVE); PROTEIN,URINE NEGATIVE (NEGATIVE); URINE SPECIFIC GRAVITY 1.019; UROBILINOGEN,URINE NEGATIVE mg/dL (<2.0)
[2017-11-07] MEDS ORDERED: DOCUSATE SODIUM 100 MG CAPSULE PO PRN (03:23)
[2017-11-07] MEDS ORDERED: ACETAMINOPHEN 325 MG TABLET PO PRN (03:25)
[2017-11-07] MEDS ORDERED: MAG HYDROX/AL HYDROX/SIMETH SUSP 30 ML UDCUP PO PRN (03:25)
[2017-11-07] MEDS ORDERED: AMPICILLIN SOD/SULBACTAM 3 GM VIAL IV PRN (04:11)
[2017-11-07] MEDS ORDERED: LEVOFLOXACIN 750 MG/D5W RTU 750 MG/150 ML RTUPB IV ONE (04:30)
[2017-11-07] MEDS: NORMAL SALINE 1000 ML 1,000 ML IV SCH ×2 (04:56→09:51)
--- NOTE | 2017-11-07 06:18 | PDOC H&P ---
History of Present Illness Admission Date/PCP: 11/07/17 03:58 JEROME MCKEON DO Patient complains of: Weakness History of Present Illness: ADAM ZELAYA is a 77 year old male with a past medical history of atrial fibrillation, hyponatremia, hypertension, dementia, PTSD, GERD, vertebral artery disease and recently diagnosed esophageal cancer. He presents with a presyncopal episode, generalized weakness and a productive cough. Patient is socially appropriate but significantly demented and unable to provide history and without caregiver at bedside. He denies pain. In the emergency room is found to have leukocytosis and concern for infection related to esophageal mass. He started on empiric antibiotics refer to the hospitalist for admission. Past Medical History Cardiac Medical History: Reports: Atrial Fibrillation, Hyperlipidema, Hypertension Denies: Coronary Artery Disease, Myocardial Infarction Pulmonary Medical History: Denies: Asthma, Bronchitis, Chronic Obstructive Pulmonary Disease (COPD), Pneumonia Neurological Medical History: Denies: Seizures GI Medical History: Reports: Gastroesophageal Reflux Disease Musculoskeltal Medical History: Reports: Arthritis Psychiatric Medical History: Reports: Dementia, Post Traumatic Stress Disorder Hematology: Denies: Anemia Past Surgical History Past Surgical History: Reports: Orthopedic Surgery - Left Achilles tendon repair. Status post bilateral ankle fractures., Other - Cataracts, spinal surgery, EGDs. Denies: Pacemaker Social History Information Source: [facility] Records Lives with: Family Smoking Status: Unknown if Ever Smoked Frequency of Alcohol Use: Occasional - Patient consumes 1-2 wine nightly with meals. Hx Recreational Drug Use: No Drugs: None Hx Prescription Drug Abuse: No - Advance Directive Resuscitation Status: Full Code Family History Family History: Other - Unobtainable Parental Family History Reviewed: Yes - Unobtainable Children Family History Reviewed: Yes - Unobtainable Sibling(s) Family History Reviewed.: Yes - Unobtainable Medication/Allergy Home Medications: Aspirin [Aspirin EC] 81 mg PO DAILY 10/18/17 Clopidogrel Bisulfate [Plavix 75 mg Tablet] 75 mg PO DAILY 10/18/17 Cyanocobalamin (Vitamin B-12) [Vitamin B-12] 1,000 mcg PO DAILY 10/18/17 Docusate Sodium [Colace 100 mg Capsule] 100 mg PO DAILYP PRN 10/18/17 Finasteride [Proscar 5 mg Tablet] 5 mg PO DAILY 10/18/17 Magnesium Oxide [Mag-Ox 400 mg Tablet] 800 mg PO DAILY 10/18/17 Pantoprazole Sodium [Protonix] 40 mg PO DAILY 10/18/17 Tramadol HCl [Ultram 50 mg Tablet] 50 mg PO DAILY 10/18/17 Trazodone HCl [Desyrel] 100 mg PO QHS 10/18/17 Amox Tr/Potassium Clavulanate [Augmentin "500" Tablet] 1 tab PO MEALS 5 Days # 15 tablet 10/31/17 Aspirin [Aspirin 81 mg Chewable Tablet] 81 mg PO DAILY tab.chew 10/31/17 Clopidogrel Bisulfate [Plavix 75 mg Tablet] 75 mg PO DAILY tablet 10/31/17 Finasteride [Proscar 5 mg Tablet] 5 mg PO DAILY tablet 10/31/17 Metoprolol Tartrate [Lopressor 25 mg Tablet] 12.5 mg PO BID #30 tab 10/31/17 Trazodone HCl [Desyrel 50 mg Tablet] 100 mg PO QHS tablet 10/31/17 Allergies/Adverse Reactions: cyclobenzaprine HCl [From Flexeril] Allergy (Intermediate, Verified 05/06/15 08: 05) Hallucinations oxycodone HCl [From Percocet] Allergy (Intermediate, Verified 05/06/15 08:05) Hallucinations hydrocodone bitartrate [From Vicodin] Adverse Reaction (Severe, Verified 08:05) Hallucinations Review of Systems ROS unobtainable: Due to mental status Physical Exam Vital Signs: Temp Pulse Resp BP Pulse Ox 98.5 F 102 H 21 H 117/54 L 95 11/06/17 23:28 11/06/17 23:28 11/07/17 05:01 11/07/17 05:01 11/07/17 05:01 General appearance: PRESENT: no acute distress, cooperative, thin Head exam: PRESENT: atraumatic, normocephalic Eye exam: PRESENT: conjunctiva pink, EOMI, PERRLA. ABSENT: scleral icterus Ear exam: PRESENT: normal external ear exam Mouth exam: PRESENT: dry mucosa, tongue midline Neck exam: ABSENT: carotid bruit, JVD, lymphadenopathy, thyromegaly Respiratory exam: PRESENT: crackles, decreased breath sounds, symmetrical Cardiovascular exam: PRESENT: RRR. ABSENT: diastolic murmur, rubs, systolic murmur Pulses: PRESENT: normal dorsalis pedis pul Vascular exam: PRESENT: normal capillary refill GI/Abdominal exam: PRESENT: normal bowel sounds, soft. ABSENT: distended, guarding, mass, organolmegaly, rebound, tenderness Rectal exam: PRESENT: deferred Extremities exam: PRESENT: full ROM. ABSENT: calf tenderness, clubbing, pedal edema Neurological exam: PRESENT: alert, awake, oriented to person, CN II-XII grossly intact Psychiatric exam: PRESENT: appropriate affect, normal mood. ABSENT: homicidal ideation, suicidal ideation Skin exam: PRESENT: dry, intact, warm. ABSENT: cyanosis, rash Results Impressions: Chest X-Ray 11/06/17 23:56 IMPRESSION: No acute cardiopulmonary findings. 2010 [employer]- All Rights Reserved Head CT 11/06/17 23:57 IMPRESSION: No acute findings. Assessment & Plan - Diagnosis (1) Esophageal mass Is this a current diagnosis for this admission?: Yes Plan: Oncology consult, supportive care, trial clear liquid diet (2) Leukocytosis Qualifiers: Leukocytosis type: unspecified Qualified Code(s): D72.829 - Elevated white blood cell count, unspecified Is this a current diagnosis for this admission?: Yes Plan: Concern for esophageal mass as source given lack of additional symptoms. Empiric antibiotics, follow-up blood culture and CBC (4) Hyponatremia Is this a current diagnosis for this admission?: Yes Plan: Chronic and stable likely secondary to malignancy follow-up chemistry (5) Moderate protein-calorie malnutrition Is this a current diagnosis for this admission?: Yes Plan: Complicated by malignancy and reduced p.o. intake unclear candidacy for PEG tube. Follow-up with family per patient's wishes - Time Time Spent: 30 to 50 Minutes - Inpatient Certification Medical Necessity: Need Close Monitoring Due to Risk of Patient Decompensation
--- NOTE | 2017-11-07 07:57 | EKG REPORT ---
SEVERITY:- BORDERLINE ECG - SINUS TACHYCARDIA BORDERLINE T ABNORMALITIES, ANTERIOR LEADS : Confirmed by: Ifeanyi Singletary MD 07-Nov-2017 07:56:47
--- NOTE | 2017-11-07 08:30 | PDOC CONSULTATION ---
Consultation Consult Date: 11/07/17 Consult reason:: Hematology Oncology Consulation was requested for Esophageal Carcinoma History of Present Illness Admission Date/PCP: 11/07/17 03:58 JEROME MCKEON DO History of Present Illness: ADAM ZELAYA is a 77 year old male who was discharged from this hospital . During that admission, he was diagnosed with esophageal cancer. He underwent PET/CT 2 days ago as out patient. Today, his is not present and patient is only able to answer limited questions. He has poor short-term memory and states that I will need to ask his most of my questions. He does not remember falling. He does not believe he hurt anything. He cannot remember if he has been eating well or when his last BM was. Today, he reports that his lips are dry and his mouth is dry. He denies any pain. He is able to drink an ensure for me without difficulty. Past Medical History Cardiac Medical History: Reports: Atrial Fibrillation, Hyperlipidema, Hypertension Denies: Coronary Artery Disease, Myocardial Infarction Pulmonary Medical History: Denies: Asthma, Bronchitis, Chronic Obstructive Pulmonary Disease (COPD), Pneumonia Neurological Medical History: Denies: Seizures GI Medical History: Reports: Gastroesophageal Reflux Disease Musculoskeltal Medical History: Reports: Arthritis Psychiatric Medical History: Reports: Dementia, Post Traumatic Stress Disorder Hematology: Denies: Anemia Past Surgical History Past Surgical History: Reports: Orthopedic Surgery - Left Achilles tendon repair. Status post bilateral ankle fractures., Other - Cataracts, spinal surgery, EGDs. Denies: Pacemaker Social History Information Source: [facility] Records Lives with: Family Smoking Status: Former Smoker Number of Years Smokin Last Time Smoked: 1985 Frequency of Alcohol Use: Occasional Hx Recreational Drug Use: No Drugs: None Hx Prescription Drug Abuse: No Past Social History Note: He has 2 daughters and 6 grandchildren. There is 1 dog in the home. - Advance Directive Resuscitation Status: Full Code Surrogate healthcare decision maker:: . He was a DNR previous admission. Family History Family History: Other - Unobtainable Parental Family History Reviewed: Yes - Father of unknwon cancer. Mother in her 50s from brain aneurism Children Family History Reviewed: Yes Sibling(s) Family History Reviewed.: Yes Medication/Allergy Allergies/Adverse Reactions: cyclobenzaprine HCl [From Flexeril] Allergy (Intermediate, Verified 05/06/15 08: 05) Hallucinations oxycodone HCl [From Percocet] Allergy (Intermediate, Verified 05/06/15 08:05) Hallucinations hydrocodone bitartrate [From Vicodin] Adverse Reaction (Severe, Verified 08:05) Hallucinations Review of Systems Constitutional: ABSENT: headache(s), weight gain, weight loss Eyes: ABSENT: visual disturbances Ears: ABSENT: hearing changes Nose, Mouth, and Throat: PRESENT: other - Dry mouth and lips. Cardiovascular: ABSENT: chest pain Respiratory: ABSENT: dyspnea Gastrointestinal: ABSENT: diarrhea, nausea Genitourinary: ABSENT: difficulty urinating Integumentary: ABSENT: rash Neurological: PRESENT: frequent falls Psychiatric: PRESENT: other - Short term memory loss. Physical Exam Vital Signs: Temp Pulse Resp BP Pulse Ox 98.6 F 83 15 107/44 L 95 11/07/17 06:00 11/07/17 06:00 11/07/17 06:00 11/07/17 06:00 11/07/17 06:00 Intake & Output 11/06/17 11/07/17 11/08/17 06:59 06:59 06:59 Weight 54 kg General appearance: PRESENT: no acute distress, cooperative, thin Head exam: PRESENT: atraumatic, normocephalic Eye exam: PRESENT: other - Does not open his right eye. Mouth exam: PRESENT: dry mucosa, tongue midline Teeth exam: ABSENT: poor dentation Neck exam: ABSENT: lymphadenopathy, tenderness Respiratory exam: PRESENT: clear to auscultation cally Cardiovascular exam: PRESENT: RRR Pulses: PRESENT: normal carotid pulses GI/Abdominal exam: PRESENT: soft. ABSENT: tenderness Extremities exam: ABSENT: pedal edema Musculoskeletal exam: PRESENT: full ROM. ABSENT: tenderness Neurological exam: PRESENT: alert, awake, oriented to person, oriented to place. ABSENT: oriented to time Psychiatric exam: PRESENT: appropriate affect Skin exam: PRESENT: normal color Results Impressions: Chest X-Ray 11/06/17 23:56 IMPRESSION: No acute cardiopulmonary findings. 2010 [employer]- All Rights Reserved Head CT 11/06/17 23:57 IMPRESSION: No acute findings. Assessment & Plan - Diagnosis (1) Esophageal cancer Qualifiers: Malignant neoplasm of esophagus location: lower third Qualified Code(s): C15.5 - Malignant neoplasm of lower third of esophagus Plan: I would like to review the results of the PET/CT with his family when they are available and discuss further treatment plans. I will try to arrange a family meeting [facility]. (2) Leukocytosis Qualifiers: Leukocytosis type: unspecified Qualified Code(s): D72.829 - Elevated white blood cell count, unspecified Is this a current diagnosis for this admission?: Yes Plan: Unclear as to the cause. However, it did improve during last admission with antibiotics. Await cultures. (3) Frequent falls Plan: This will still be a challenge for the family. has said previously that she is not comfortable caring for the patient by herself at home. Daughters both work choir member and are not in the same city. (4) Memory deficit Is this a current diagnosis for this admission?: Yes Plan: This seems to be chronic, although family may not admit to the degree of deficit. - Plan Summary Plan Summary: Thank you for this consultation. I will follow with you and discuss long-term plans for treatment of his cancer with the patient and family, once everyone is available. Please call me with questions or concerns.
[2017-11-07] MEDS: CLOPIDOGREL BISULFATE 75 MG TABLET PO SCH (09:37)
[2017-11-07] MEDS: ASPIRIN 81 MG TABLET, CHEWABLE PO SCH (09:37)
[2017-11-07] MEDS: DOCUSATE SODIUM 100 MG CAPSULE PO SCH ×2 (09:38→17:31)
[2017-11-07] MEDS: MAGNESIUM OXIDE 400 MG TABLET PO SCH (09:38)
[2017-11-07] MEDS: LANSOPRAZOLE 30 MG TAB.RAP.DR PO SCH (09:39)
[2017-11-07] MEDS: FINASTERIDE 5 MG TABLET PO SCH (09:39)
[2017-11-07] MEDS: HEPARIN SOD (PORCINE) 5,000 UNIT/ML 1 ML SYRINGE SUBCUT SCH ×3 (09:51→22:14)
[2017-11-07] MEDS: METOPROLOL TARTRATE 25 MG TABLET PO SCH ×2 (09:51→22:14)
[2017-11-07] MEDS ORDERED: TRAMADOL HCL 50 MG TABLET PO SCH (10:00)
--- NOTE | 2017-11-07 10:12 | PDOC PROGRESS REPORT ---
Subjective Progress Note for:: 11/07/17 Subjective:: Denies any complaints. Reason For Visit: MALNUTRITION, ESOPHAGEAL CANCER, FALLS Physical Exam Vital Signs: Temp Pulse Resp BP Pulse Ox 98.4 F 89 18 112/48 L 94 11/07/17 08:00 11/07/17 08:00 11/07/17 08:00 11/07/17 08:00 11/07/17 08:00 Intake & Output 11/06/17 11/07/17 11/08/17 06:59 06:59 06:59 Weight 54 kg General appearance: PRESENT: no acute distress Eye exam: PRESENT: conjunctiva pink. ABSENT: scleral icterus Mouth exam: PRESENT: moist, tongue midline Neck exam: ABSENT: JVD Respiratory exam: PRESENT: clear to auscultation cally. ABSENT: rales, rhonchi, wheezes Cardiovascular exam: PRESENT: RRR. ABSENT: diastolic murmur, rubs, systolic murmur GI/Abdominal exam: PRESENT: normal bowel sounds, soft. ABSENT: distended, guarding, mass, organolmegaly, rebound, tenderness Extremities exam: ABSENT: calf tenderness, clubbing, pedal edema Neurological exam: PRESENT: awake, oriented to person, oriented to place, CN II- XII grossly intact. ABSENT: oriented to time, oriented to situation, motor sensory deficit Psychiatric exam: PRESENT: flat affect Skin exam: PRESENT: dry, intact, warm. ABSENT: cyanosis, rash Results Impressions: Chest X-Ray 11/06/17 23:56 IMPRESSION: No acute cardiopulmonary findings. [address] [place], [place] [address]- All Rights Reserved Head CT 11/06/17 23:57 IMPRESSION: No acute findings. Assessment & Plan - Diagnosis (1) Leukocytosis Qualifiers: Leukocytosis type: unspecified Qualified Code(s): D72.829 - Elevated white blood cell count, unspecified Is this a current diagnosis for this admission?: Yes Plan: Unclear as to what the etiology is. Patient has been started on empiric antibiotics. (2) Esophageal cancer Qualifiers: Malignant neoplasm of esophagus location: lower third Qualified Code(s): C15.5 - Malignant neoplasm of lower third of esophagus Is this a current diagnosis for this admission?: Yes Plan: He is being followed by oncology. (3) Atrial fibrillation Is this a current diagnosis for this admission?: Yes Plan: Patient is rate control. (4) Chronic back pain Is this a current diagnosis for this admission?: Yes (5) Hypertension Qualifiers: Hypertension type: essential hypertension Qualified Code(s): I10 - Essential (primary) hypertension Is this a current diagnosis for this admission?: Yes (6) Do not resuscitate Is this a current diagnosis for this admission?: Yes (7) Memory deficit Is this a current diagnosis for this admission?: Yes Plan: Patient appears to have some mild to moderate dementia. - Time Time Spent with patient: 25-34 minutes - Inpatient Certification Medical Necessity: Need Close Monitoring Due to Risk of Patient Decompensation, Need for IV Antibiotics
[2017-11-07] MEDS: AMPICILLIN SODIUM/SULBACTAM NA 3 GM in NORMAL SALINE 100 ML IV SCH ×3 (11:23→17:31)
--- NOTE | 2017-11-07 15:01 | Progress Note ---
Provider Note Provider Note: I met with patient, and daughter today at bedside. We discussed PET/CT report and the fact that it looks as though it has already started to spread to the lymph nodes, but nowhere else. Family was very surprised at how quickly he has gone down hill with his strength, confusion, and appetite. We discussed treatment options. However, I do not believe he is a candidate for aggressive chemo, radiation or surgery at this point. We discussed Hospice or other means of palliative care. They are open to this idea. However, still does not believe he will be safe to go home and may need mcc care. Family would like to speak with discharge planners about part time flexible clerk care options. They also requested something for his thick secretions and cough. Will start Mucinex 1200 mg BID and see if this helps. I will continue to follow. 30 minutes spent in counseling.
[2017-11-07] MEDS ORDERED: GUAIFENESIN 600 MG TABLET.SA PO ONE (16:00)
[2017-11-07] MEDS ORDERED: (PENDING PHARMACY ID) (Trazodone Hcl [Desyrel] 100 MG) PO SCH (22:00)
[2017-11-07] MEDS: TRAZODONE HCL 50 MG TABLET PO SCH (22:14)
[2017-11-07] MEDS: GUAIFENESIN 600 MG TABLET.SA PO SCH (22:15)
[2017-11-08] MEDS: AMPICILLIN SODIUM/SULBACTAM NA 3 GM in NORMAL SALINE 100 ML IV SCH ×4 (00:29→17:31)
[2017-11-08] MEDS ORDERED: METOPROLOL TARTRATE PF/INJ 5 MG/5 ML SDV IV ONE (04:41)
[2017-11-08] MEDS: LANSOPRAZOLE 30 MG TAB.RAP.DR PO SCH (05:07)
[2017-11-08] MEDS: HEPARIN SOD (PORCINE) 5,000 UNIT/ML 1 ML SYRINGE SUBCUT SCH ×3 (05:08→22:25)
[2017-11-08 05:54] LABS: HEMATOCRIT 31.3 % (37.9-51.0); MEAN CORPUSCULAR HEMOGLOBIN 32.6 pg (27.0-33.4); MEAN CORPUSCULAR HGB CONC 35.2 g/dL (32.0-36.0); MEAN CORPUSCULAR VOLUME 93 fl (80-97); PLATELET COUNT 220 10^3/uL (150-450); RED BLOOD COUNT 3.38 10^6/uL (4.35-5.55); RED CELL DISTRIBUTION WIDTH 12.8 % (11.5-14.0); WHITE BLOOD COUNT 22.4 10^3/uL (4.0-10.5)
[2017-11-08 06:13] LABS: ANION GAP 8 (5-19); BLOOD UREA NITROGEN 10 mg/dL (7-20); CALCIUM 9.2 mg/dL (8.4-10.2); CARBON DIOXIDE 24 mmol/L (22-30); CHLORIDE 103 mmol/L (98-107); GLUCOSE 96 mg/dL (75-110); POTASSIUM 3.2 mmol/L (3.6-5.0)
[2017-11-08 06:19] LABS: ABSOLUTE LYMPHOCYTES# (MANUAL) 0.7 10^3/uL (0.5-4.7); ABSOLUTE MONOCYTES # (MANUAL) 0.4 10^3/uL (0.1-1.4); ABSOLUTE NEUTROPHILS# (MANUAL) 21.3 10^3/uL (1.7-8.2); BASOPHILS % (MANUAL) 0 % (0-2); EOSINOPHILS % (MANUAL) 0 % (0-6); LYMPHOCYTES % (MANUAL) 3 % (13-45); MONOCYTES % (MANUAL) 2 % (3-13); SEGMENTED NEUTROPHILS % (MAN) 95 % (42-78); TOTAL CELLS COUNTED 100
[2017-11-08 06:20] LABS: OVALOCYTES SLIGHT; POIKILOCYTOSIS SLIGHT; SCHISTOCYTES SLIGHT
[2017-11-08 06:21] LABS: PLATELET COMMENT ADEQUATE; TOXIC GRANULATION 1+
[2017-11-08] MEDS: POTASSI CL 20 MEQ/50 ML RIDER 20 MEQ/50 ML RTUPB IV SCH ×2 (08:26→10:55)
[2017-11-08] MEDS: FINASTERIDE 5 MG TABLET PO SCH (10:50)
[2017-11-08] MEDS: CLOPIDOGREL BISULFATE 75 MG TABLET PO SCH (10:50)
[2017-11-08] MEDS: MAGNESIUM OXIDE 400 MG TABLET PO SCH (10:50)
[2017-11-08] MEDS: GUAIFENESIN 600 MG TABLET.SA PO SCH ×2 (10:50→22:29)
[2017-11-08] MEDS: ASPIRIN 81 MG TABLET, CHEWABLE PO SCH (10:51)
[2017-11-08] MEDS: DOCUSATE SODIUM 100 MG CAPSULE PO SCH ×2 (10:51→17:36)
[2017-11-08] MEDS: METOPROLOL TARTRATE 25 MG TABLET PO SCH ×2 (10:51→22:29)
[2017-11-08] MEDS: LEVOFLOXACIN 750 MG/D5W RTU 750 MG/150 ML RTUPB IV SCH (11:02)
--- NOTE | 2017-11-08 11:10 | PDOC PROGRESS REPORT ---
Subjective Progress Note for:: 11/08/17 Subjective:: Patient sleeping on arrival with at bedside. Upon awakening, he seemed agitated and startled. He told his to leave. He denied any pain or problems and states that he did not have a bad dream, but told her to get out. is very distraught today. She states that patient told her yesterday that he would be in 2 days time. She and her daughter are planning to tour several residential facilities later today. Reason For Visit: MALNUTRITION, ESOPHAGEAL CANCER, FALLS Physical Exam Vital Signs: Temp Pulse Resp BP Pulse Ox 100.6 F H 56 L 18 107/61 92 11/08/17 08:00 11/08/17 08:00 11/08/17 08:00 11/08/17 08:00 11/08/17 08:00 Intake & Output 11/07/17 11/08/17 11/09/17 06:59 06:59 06:59 Intake Total 3423 Output Total 1000 Balance 2423 Weight 54 kg 58.9 kg General appearance: PRESENT: thin Exam: 77 year old male. Initially sleeping with pronounced "rattle" in his chest. Eye exam: PRESENT: other - Right eyelid still drooping and unable for patient to fully open. Respiratory exam: PRESENT: clear to auscultation cally Cardiovascular exam: PRESENT: RRR Neurological exam: PRESENT: alert Psychiatric exam: PRESENT: agitated Skin exam: PRESENT: normal color Results Laboratory Results: 11/08/17 05:23 11/08/17 05:23 11/08/17 11/08/17 05:23 05:23 WBC 22.4 H RBC 3.38 L Hgb 11.0 L Hct 31.3 L MCV 93 MCH 32.6 MCHC 35.2 RDW 12.8 Plt Count 220 Seg Neutrophils % Not Reportable Lymphocytes % Not Reportable Monocytes % Not Reportable Eosinophils % Not Reportable Basophils % Not Reportable Absolute Neutrophils Not Reportable Absolute Lymphocytes Not Reportable Absolute Monocytes Not Reportable Absolute Eosinophils Not Reportable Absolute Basophils Not Reportable Sodium 135.0 L Potassium 3.2 L Chloride 103 Carbon Dioxide 24 Anion Gap 8 BUN 10 Creatinine 0.65 Est GFR ( Amer) > 60 Est GFR (Non-Af Amer) > 60 Glucose 96 Calcium 9.2 Impressions: Chest X-Ray 11/06/17 23:56 IMPRESSION: No acute cardiopulmonary findings. 2010 [employer]- All Rights Reserved Head CT 11/06/17 23:57 IMPRESSION: No acute findings. Assessment & Plan - Diagnosis (1) Esophageal cancer Qualifiers: Malignant neoplasm of esophagus location: lower third Qualified Code(s): C15.5 - Malignant neoplasm of lower third of esophagus Is this a current diagnosis for this admission?: Yes (2) Leukocytosis Qualifiers: Leukocytosis type: unspecified Qualified Code(s): D72.829 - Elevated white blood cell count, unspecified Is this a current diagnosis for this admission?: Yes (4) Memory deficit Is this a current diagnosis for this admission?: Yes - Plan Summary Plan Summary: I sat and spoke with patient's at length. Family is in agreement for Hospice/palliative care and are trying to decide on long-term care plans. However, she is fully aware that patient may have "given up" and may be close to . She asks if he can be transferred to the third floor, as he knows all the nurses there. She has good family support, but still feels alone most of the time. I believe she would greatly benefit from Hospice/Palliative Care services.
--- NOTE | 2017-11-08 13:28 | PDOC PROGRESS REPORT ---
Subjective Progress Note for:: 11/08/17 Subjective:: Patient is slightly confused today. He is tolerating a soft diet. Reason For Visit: MALNUTRITION, ESOPHAGEAL CANCER, FALLS Physical Exam Vital Signs: Temp Pulse Resp BP Pulse Ox 100.6 F H 56 L 18 107/61 92 11/08/17 08:00 11/08/17 08:00 11/08/17 08:00 11/08/17 08:00 11/08/17 08:00 Intake & Output 11/07/17 11/08/17 11/09/17 06:59 06:59 06:59 Intake Total 3423 Output Total 1000 Balance 2423 Weight 54 kg 58.9 kg General appearance: PRESENT: no acute distress Eye exam: PRESENT: conjunctiva pink. ABSENT: scleral icterus Mouth exam: PRESENT: moist, tongue midline Neck exam: ABSENT: JVD Respiratory exam: PRESENT: clear to auscultation cally. ABSENT: rales, rhonchi, wheezes Cardiovascular exam: PRESENT: RRR. ABSENT: diastolic murmur, rubs, systolic murmur GI/Abdominal exam: PRESENT: normal bowel sounds, soft. ABSENT: distended, guarding, mass, organolmegaly, rebound, tenderness Extremities exam: ABSENT: calf tenderness, clubbing, pedal edema Neurological exam: PRESENT: alert, awake, oriented to person, oriented to place. ABSENT: oriented to time Psychiatric exam: PRESENT: appropriate affect Skin exam: PRESENT: dry, intact, warm. ABSENT: cyanosis, rash Results Laboratory Results: 11/08/17 05:23 11/08/17 05:23 11/08/17 11/08/17 05:23 05:23 WBC 22.4 H RBC 3.38 L Hgb 11.0 L Hct 31.3 L MCV 93 MCH 32.6 MCHC 35.2 RDW 12.8 Plt Count 220 Seg Neutrophils % Not Reportable Lymphocytes % Not Reportable Monocytes % Not Reportable Eosinophils % Not Reportable Basophils % Not Reportable Absolute Neutrophils Not Reportable Absolute Lymphocytes Not Reportable Absolute Monocytes Not Reportable Absolute Eosinophils Not Reportable Absolute Basophils Not Reportable Sodium 135.0 L Potassium 3.2 L Chloride 103 Carbon Dioxide 24 Anion Gap 8 BUN 10 Creatinine 0.65 Est GFR ( Amer) > 60 Est GFR (Non-Af Amer) > 60 Glucose 96 Calcium 9.2 Impressions: Chest X-Ray 11/06/17 23:56 IMPRESSION: No acute cardiopulmonary findings. 2010 [employer]- All Rights Reserved Head CT 11/06/17 23:57 IMPRESSION: No acute findings. Assessment & Plan - Diagnosis (1) Leukocytosis Qualifiers: Leukocytosis type: unspecified Qualified Code(s): D72.829 - Elevated white blood cell count, unspecified Is this a current diagnosis for this admission?: Yes Plan: Is not clear whether this is secondary to infection or the underlying malignancy. He is on empiric antibiotics. We will continue the antibiotics until the cultures come back. If they are negative we will stop the antibiotics and assume it is coming from the tumor. (2) Esophageal cancer Qualifiers: Malignant neoplasm of esophagus location: lower third Qualified Code(s): C15.5 - Malignant neoplasm of lower third of esophagus Is this a current diagnosis for this admission?: Yes Plan: He is being followed by oncology. The patient's family is still uncertain as to whether they want to go hospice or with treatment. If they decide that they would want treatment would consider placing a PEG tube. (3) Atrial fibrillation Is this a current diagnosis for this admission?: Yes Plan: Patient is rate control. (4) Chronic back pain Is this a current diagnosis for this admission?: Yes (5) Hypertension Qualifiers: Hypertension type: essential hypertension Qualified Code(s): I10 - Essential (primary) hypertension Is this a current diagnosis for this admission?: Yes Plan: Stable (6) Memory deficit Is this a current diagnosis for this admission?: Yes Plan: Patient appears to have some mild to moderate dementia. (7) Hypokalemia Is this a current diagnosis for this admission?: Yes Plan: We will replace and continue to monitor. (8) Do not resuscitate Is this a current diagnosis for this admission?: Yes - Time Time Spent with patient: 25-34 minutes - Inpatient Certification Medical Necessity: Need Close Monitoring Due to Risk of Patient Decompensation, Need for IV Antibiotics
[2017-11-08] MEDS: TRAZODONE HCL 50 MG TABLET PO SCH (22:26)
[2017-11-09] MEDS: AMPICILLIN SODIUM/SULBACTAM NA 3 GM in NORMAL SALINE 100 ML IV SCH ×5 (00:15→23:22)
[2017-11-09 05:06] LABS: ABSOLUTE MONOCYTES (AUTO) 0.8 10^3/uL (0.1-1.4); ABSOLUTE NEUT (AUTO) 16.7 10^3/uL (1.7-8.2); BASOPHILS % (AUTO) 0.1 % (0-2); EOSINOPHILS % (AUTO) 0.1 % (0-6); HEMATOCRIT 28.8 % (37.9-51.0); HEMOGLOBIN 10.1 g/dL (13.5-17.0); LYMPHOCYTES % (AUTO) 5.2 % (13-45); MEAN CORPUSCULAR VOLUME 91 fl (80-97); MONOCYTES % (AUTO) 4.2 % (3-13); PLATELET COUNT 207 10^3/uL (150-450); RED BLOOD COUNT 3.15 10^6/uL (4.35-5.55); SEGMENTED NEUTROPHILS % (AUTO) 90.4 % (42-78); TOTAL CELLS COUNTED % (AUTO) 100 %; WHITE BLOOD COUNT 18.5 10^3/uL (4.0-10.5)
[2017-11-09 05:21] LABS: ANION GAP 9 (5-19); BLOOD UREA NITROGEN 11 mg/dL (7-20); CALCIUM 9.4 mg/dL (8.4-10.2); CARBON DIOXIDE 25 mmol/L (22-30); CHLORIDE 105 mmol/L (98-107); GLUCOSE 84 mg/dL (75-110); POTASSIUM 3.3 mmol/L (3.6-5.0); SODIUM 139.2 mmol/L (137-145)
[2017-11-09] MEDS: LANSOPRAZOLE 30 MG TAB.RAP.DR PO SCH (05:29)
[2017-11-09] MEDS: HEPARIN SOD (PORCINE) 5,000 UNIT/ML 1 ML SYRINGE SUBCUT SCH ×3 (05:29→21:54)
--- NOTE | 2017-11-09 08:34 | PDOC PROGRESS REPORT ---
Subjective Progress Note for:: 11/09/17 Subjective:: Patient is currently sleeping and does not arouse to voice or touch. Nurses report he was up all night coughing up thick green secretions. No family is at bedside this morning. Reason For Visit: MALNUTRITION, ESOPHAGEAL CANCER, FALLS Physical Exam Vital Signs: Temp Pulse Resp BP Pulse Ox 98.5 F 86 18 138/65 H 97 11/09/17 04:58 11/09/17 07:00 11/09/17 04:58 11/09/17 04:58 11/09/17 04:58 Intake & Output 11/08/17 11/09/17 11/10/17 06:59 06:59 06:59 Intake Total 3423 1093 Output Total 1000 460 Balance 2423 633 Weight 58.9 kg 58.9 kg General appearance: PRESENT: no acute distress, thin Respiratory exam: PRESENT: clear to auscultation cally, other - Shallow breathing. No rattle today. Cardiovascular exam: PRESENT: RRR Extremities exam: ABSENT: pedal edema Results Laboratory Results: 11/09/17 04:35 11/09/17 04:35 11/09/17 11/09/17 04:35 04:35 WBC 18.5 H RBC 3.15 L Hgb 10.1 L Hct 28.8 L MCV 91 MCH 32.0 MCHC 35.0 RDW 13.0 Plt Count 207 Seg Neutrophils % 90.4 H Lymphocytes % 5.2 L Monocytes % 4.2 Eosinophils % 0.1 Basophils % 0.1 Absolute Neutrophils 16.7 H Absolute Lymphocytes 1.0 Absolute Monocytes 0.8 Absolute Eosinophils 0.0 Absolute Basophils 0.0 Sodium 139.2 Potassium 3.3 L Chloride 105 Carbon Dioxide 25 Anion Gap 9 BUN 11 Creatinine 0.68 Est GFR ( Amer) > 60 Est GFR (Non-Af Amer) > 60 Glucose 84 Calcium 9.4 Impressions: Chest X-Ray 11/06/17 23:56 IMPRESSION: No acute cardiopulmonary findings. 2010 [employer]- All Rights Reserved Head CT 11/06/17 23:57 IMPRESSION: No acute findings. Assessment & Plan - Diagnosis (1) Esophageal cancer Qualifiers: Malignant neoplasm of esophagus location: lower third Qualified Code(s): C15.5 - Malignant neoplasm of lower third of esophagus Is this a current diagnosis for this admission?: Yes (2) Leukocytosis Qualifiers: Leukocytosis type: unspecified Qualified Code(s): D72.829 - Elevated white blood cell count, unspecified Is this a current diagnosis for this admission?: Yes (4) Memory deficit Is this a current diagnosis for this admission?: Yes - Plan Summary Plan Summary: Patient receiving guifenasin for the secretions, which may be given as pill or liquid, whichever he can tolerate. Consider nebulized atropine as well for the secretions. I do not believe patient is strong enough for active chemotherapy or aggressive treatment at this time. Unsure if PEG tube will be of benefit in this situation. Family deciding on SNF. Hopefully, palliative care/Hospice will be available as well. Please call with any concerns.
[2017-11-09] MEDS: LEVOFLOXACIN 750 MG/D5W RTU 750 MG/150 ML RTUPB IV SCH (10:32)
[2017-11-09] MEDS: GUAIFENESIN 600 MG TABLET.SA PO SCH ×2 (10:33→21:50)
[2017-11-09] MEDS: CLOPIDOGREL BISULFATE 75 MG TABLET PO SCH (10:34)
[2017-11-09] MEDS: FINASTERIDE 5 MG TABLET PO SCH (10:34)
[2017-11-09] MEDS: DOCUSATE SODIUM 100 MG CAPSULE PO SCH ×2 (10:34→17:46)
[2017-11-09] MEDS: METOPROLOL TARTRATE 25 MG TABLET PO SCH ×2 (10:35→21:48)
[2017-11-09] MEDS: MAGNESIUM OXIDE 400 MG TABLET PO SCH (10:36)
[2017-11-09] MEDS: ASPIRIN 81 MG TABLET, CHEWABLE PO SCH (10:37)
--- NOTE | 2017-11-09 10:39 | PDOC PROGRESS REPORT ---
Subjective Progress Note for:: 11/09/17 Subjective:: Patient is sleeping. He will arouse to stimuli but goes right back to sleep. Reason For Visit: MALNUTRITION, ESOPHAGEAL CANCER, FALLS Physical Exam Vital Signs: Temp Pulse Resp BP Pulse Ox 98.5 F 86 18 138/65 H 97 11/09/17 04:58 11/09/17 07:00 11/09/17 04:58 11/09/17 04:58 11/09/17 04:58 Intake & Output 11/08/17 11/09/17 11/10/17 06:59 06:59 06:59 Intake Total 3423 1093 Output Total 1000 460 Balance 2423 633 Weight 58.9 kg 58.9 kg General appearance: PRESENT: no acute distress Eye exam: PRESENT: conjunctiva pink. ABSENT: scleral icterus Neck exam: ABSENT: JVD Respiratory exam: PRESENT: clear to auscultation cally. ABSENT: rales, rhonchi, wheezes Cardiovascular exam: PRESENT: RRR. ABSENT: diastolic murmur, rubs, systolic murmur GI/Abdominal exam: PRESENT: normal bowel sounds, soft. ABSENT: distended, guarding, mass, organolmegaly, rebound, tenderness Extremities exam: ABSENT: calf tenderness, clubbing, pedal edema Skin exam: PRESENT: dry, intact, warm. ABSENT: cyanosis, rash Results Laboratory Results: 11/09/17 04:35 11/09/17 04:35 11/09/17 11/09/17 04:35 04:35 WBC 18.5 H RBC 3.15 L Hgb 10.1 L Hct 28.8 L MCV 91 MCH 32.0 MCHC 35.0 RDW 13.0 Plt Count 207 Seg Neutrophils % 90.4 H Lymphocytes % 5.2 L Monocytes % 4.2 Eosinophils % 0.1 Basophils % 0.1 Absolute Neutrophils 16.7 H Absolute Lymphocytes 1.0 Absolute Monocytes 0.8 Absolute Eosinophils 0.0 Absolute Basophils 0.0 Sodium 139.2 Potassium 3.3 L Chloride 105 Carbon Dioxide 25 Anion Gap 9 BUN 11 Creatinine 0.68 Est GFR ( Amer) > 60 Est GFR (Non-Af Amer) > 60 Glucose 84 Calcium 9.4 Impressions: Chest X-Ray 11/06/17 23:56 IMPRESSION: No acute cardiopulmonary findings. 2010 [employer]- All Rights Reserved Head CT 11/06/17 23:57 IMPRESSION: No acute findings. Assessment & Plan - Diagnosis (1) Leukocytosis Qualifiers: Leukocytosis type: unspecified Qualified Code(s): D72.829 - Elevated white blood cell count, unspecified Is this a current diagnosis for this admission?: Yes Plan: Is not clear whether this is secondary to infection or the underlying malignancy. He is on empiric antibiotics. We will continue the antibiotics until the cultures come back. If they are negative we will stop the antibiotics and assume it is coming from the tumor. (2) Esophageal cancer Qualifiers: Malignant neoplasm of esophagus location: lower third Qualified Code(s): C15.5 - Malignant neoplasm of lower third of esophagus Is this a current diagnosis for this admission?: Yes Plan: He is being followed by oncology. The patient's family is still uncertain as to whether they want to go hospice or with treatment. If they decide that they would want treatment would consider placing a PEG tube. (3) Atrial fibrillation Is this a current diagnosis for this admission?: Yes Plan: Patient is rate control. (4) Chronic back pain Is this a current diagnosis for this admission?: Yes (5) Hypertension Qualifiers: Hypertension type: essential hypertension Qualified Code(s): I10 - Essential (primary) hypertension Is this a current diagnosis for this admission?: Yes Plan: Stable (6) Memory deficit Is this a current diagnosis for this admission?: Yes Plan: Patient appears to have some mild to moderate dementia. (7) Hypokalemia Is this a current diagnosis for this admission?: Yes Plan: We will replace and continue to monitor. (8) Do not resuscitate Is this a current diagnosis for this admission?: Yes - Time Time Spent with patient: 25-34 minutes - Inpatient Certification Medical Necessity: Need Close Monitoring Due to Risk of Patient Decompensation
[2017-11-09] MEDS: TRAMADOL HCL 50 MG TABLET PO PRN (12:16)
[2017-11-09] MEDS: POTASSI CL 20 MEQ/50 ML RIDER 20 MEQ/50 ML RTUPB IV SCH ×2 (15:16→17:38)
[2017-11-09] MEDS: TRAZODONE HCL 50 MG TABLET PO SCH (21:51)
[2017-11-10] MEDS: AMPICILLIN SODIUM/SULBACTAM NA 3 GM in NORMAL SALINE 100 ML IV SCH ×3 (05:12→17:38)
[2017-11-10] MEDS: LANSOPRAZOLE 30 MG TAB.RAP.DR PO SCH (05:12)
[2017-11-10] MEDS: HEPARIN SOD (PORCINE) 5,000 UNIT/ML 1 ML SYRINGE SUBCUT SCH ×3 (05:12→22:53)
[2017-11-10 09:14] LABS: ABSOLUTE LYMPHOCYTES (AUTO) 1.3 10^3/uL (0.5-4.7); ABSOLUTE MONOCYTES (AUTO) 0.8 10^3/uL (0.1-1.4); BASOPHILS % (AUTO) 0.3 % (0-2); EOSINOPHILS % (AUTO) 0.1 % (0-6); HEMATOCRIT 29.3 % (37.9-51.0); HEMOGLOBIN 10.2 g/dL (13.5-17.0); LYMPHOCYTES % (AUTO) 7.1 % (13-45); MEAN CORPUSCULAR HEMOGLOBIN 32.3 pg (27.0-33.4); MEAN CORPUSCULAR HGB CONC 34.7 g/dL (32.0-36.0); MEAN CORPUSCULAR VOLUME 93 fl (80-97); MONOCYTES % (AUTO) 4.6 % (3-13); PLATELET COUNT 207 10^3/uL (150-450); RED BLOOD COUNT 3.15 10^6/uL (4.35-5.55); RED CELL DISTRIBUTION WIDTH 13.2 % (11.5-14.0); SEGMENTED NEUTROPHILS % (AUTO) 87.9 % (42-78); TOTAL CELLS COUNTED % (AUTO) 100 %; WHITE BLOOD COUNT 18.2 10^3/uL (4.0-10.5)
[2017-11-10] MEDS: METOPROLOL TARTRATE 25 MG TABLET PO SCH ×2 (09:44→22:53)
[2017-11-10] MEDS: ASPIRIN 81 MG TABLET, CHEWABLE PO SCH (09:45)
[2017-11-10] MEDS: DOCUSATE SODIUM 100 MG CAPSULE PO SCH ×2 (09:45→17:38)
[2017-11-10] MEDS: FINASTERIDE 5 MG TABLET PO SCH (09:45)
[2017-11-10] MEDS: LEVOFLOXACIN 750 MG/D5W RTU 750 MG/150 ML RTUPB IV SCH (09:46)
[2017-11-10] MEDS: CLOPIDOGREL BISULFATE 75 MG TABLET PO SCH (09:46)
[2017-11-10] MEDS: MAGNESIUM OXIDE 400 MG TABLET PO SCH (09:46)
[2017-11-10] MEDS: GUAIFENESIN 600 MG TABLET.SA PO SCH ×2 (09:46→22:53)
--- NOTE | 2017-11-10 13:34 | PDOC PROGRESS REPORT ---
Subjective Progress Note for:: 11/10/17 Subjective:: Denies any complaints Reason For Visit: MALNUTRITION, ESOPHAGEAL CANCER, FALLS Physical Exam Vital Signs: Temp Pulse Resp BP Pulse Ox 98.0 F 90 20 107/31 L 88 L 11/10/17 12:17 11/10/17 12:17 11/10/17 12:17 11/10/17 12:17 11/10/17 12:17 Intake & Output 11/09/17 11/10/17 11/11/17 06:59 06:59 06:59 Intake Total 1093 1475 Output Total 460 1000 Balance 633 475 Weight 58.9 kg 58.9 kg General appearance: PRESENT: no acute distress Eye exam: PRESENT: conjunctiva pink. ABSENT: scleral icterus Mouth exam: PRESENT: moist, tongue midline Neck exam: ABSENT: JVD Respiratory exam: PRESENT: clear to auscultation cally. ABSENT: rales, rhonchi, wheezes Cardiovascular exam: PRESENT: RRR. ABSENT: diastolic murmur, rubs, systolic murmur GI/Abdominal exam: PRESENT: normal bowel sounds, soft. ABSENT: distended, guarding, mass, organolmegaly, rebound, tenderness Extremities exam: ABSENT: calf tenderness, clubbing, pedal edema Neurological exam: PRESENT: alert, awake, oriented to person, oriented to place , CN II-XII grossly intact. ABSENT: oriented to time, oriented to situation, motor sensory deficit Psychiatric exam: PRESENT: appropriate affect Skin exam: PRESENT: dry, intact, warm. ABSENT: cyanosis, rash Results Laboratory Results: 11/10/17 08:39 11/09/17 04:35 11/10/17 08:39 WBC 18.2 H RBC 3.15 L Hgb 10.2 L Hct 29.3 L MCV 93 MCH 32.3 MCHC 34.7 RDW 13.2 Plt Count 207 Seg Neutrophils % 87.9 H Lymphocytes % 7.1 L Monocytes % 4.6 Eosinophils % 0.1 Basophils % 0.3 Absolute Neutrophils 16.0 H Absolute Lymphocytes 1.3 Absolute Monocytes 0.8 Absolute Eosinophils 0.0 Absolute Basophils 0.0 Impressions: Chest X-Ray 11/06/17 23:56 IMPRESSION: No acute cardiopulmonary findings. 2010 [employer]- All Rights Reserved Head CT 11/06/17 23:57 IMPRESSION: No acute findings. Assessment & Plan - Diagnosis (1) Leukocytosis Qualifiers: Leukocytosis type: unspecified Qualified Code(s): D72.829 - Elevated white blood cell count, unspecified Is this a current diagnosis for this admission?: Yes Plan: Is not clear whether this is secondary to infection or the underlying malignancy. He is on empiric antibiotics. We will continue the antibiotics until the cultures come back. If they are negative we will stop the antibiotics and assume it is coming from the tumor. (2) Esophageal cancer Qualifiers: Malignant neoplasm of esophagus location: lower third Qualified Code(s): C15.5 - Malignant neoplasm of lower third of esophagus Is this a current diagnosis for this admission?: Yes Plan: He is being followed by oncology. The patient's family is still uncertain as to whether they want to go hospice or with treatment. If they decide that they would want treatment would consider placing a PEG tube. (3) Atrial fibrillation Is this a current diagnosis for this admission?: Yes Plan: Patient is rate control. (4) Chronic back pain Is this a current diagnosis for this admission?: Yes (5) Hypertension Qualifiers: Hypertension type: essential hypertension Qualified Code(s): I10 - Essential (primary) hypertension Is this a current diagnosis for this admission?: Yes Plan: Stable (6) Memory deficit Is this a current diagnosis for this admission?: Yes Plan: Patient appears to have some mild to moderate dementia. (7) Hypokalemia Is this a current diagnosis for this admission?: Yes Plan: We will replace and continue to monitor. (8) Do not resuscitate Is this a current diagnosis for this admission?: Yes - Time Time Spent with patient: 25-34 minutes - Inpatient Certification Medical Necessity: Need Close Monitoring Due to Risk of Patient Decompensation, Need for IV Antibiotics
[2017-11-10] MEDS: TRAZODONE HCL 50 MG TABLET PO SCH (22:55)
[2017-11-10] MEDS: POTASSIUM CHLORIDE 20 MEQ/15 ML UDCUP PO SCH (22:55)
[2017-11-11] MEDS: AMPICILLIN SODIUM/SULBACTAM NA 3 GM in NORMAL SALINE 100 ML IV SCH ×2 (00:57→05:33)
[2017-11-11 05:02] LABS: ABSOLUTE LYMPHOCYTES (AUTO) 1.2 10^3/uL (0.5-4.7); ABSOLUTE MONOCYTES (AUTO) 0.7 10^3/uL (0.1-1.4); ABSOLUTE NEUT (AUTO) 14.4 10^3/uL (1.7-8.2); BASOPHILS % (AUTO) 0.2 % (0-2); EOSINOPHILS % (AUTO) 0.1 % (0-6); HEMATOCRIT 28.7 % (37.9-51.0); HEMOGLOBIN 10.1 g/dL (13.5-17.0); LYMPHOCYTES % (AUTO) 7.2 % (13-45); MEAN CORPUSCULAR HEMOGLOBIN 32.4 pg (27.0-33.4); MEAN CORPUSCULAR HGB CONC 35.2 g/dL (32.0-36.0); MEAN CORPUSCULAR VOLUME 92 fl (80-97); MONOCYTES % (AUTO) 4.3 % (3-13); PLATELET COUNT 204 10^3/uL (150-450); RED BLOOD COUNT 3.11 10^6/uL (4.35-5.55); RED CELL DISTRIBUTION WIDTH 13.1 % (11.5-14.0); SEGMENTED NEUTROPHILS % (AUTO) 88.2 % (42-78); TOTAL CELLS COUNTED % (AUTO) 100 %; WHITE BLOOD COUNT 16.3 10^3/uL (4.0-10.5)
[2017-11-11] MEDS: LANSOPRAZOLE 30 MG TAB.RAP.DR PO SCH (05:33)
[2017-11-11] MEDS: HEPARIN SOD (PORCINE) 5,000 UNIT/ML 1 ML SYRINGE SUBCUT SCH ×3 (05:33→22:57)
[2017-11-11 05:39] LABS: ANION GAP 10 (5-19); BLOOD UREA NITROGEN 14 mg/dL (7-20); CALCIUM 9.2 mg/dL (8.4-10.2); CARBON DIOXIDE 22 mmol/L (22-30); CHLORIDE 107 mmol/L (98-107); GLUCOSE 72 mg/dL (75-110); POTASSIUM 3.1 mmol/L (3.6-5.0); SODIUM 138.9 mmol/L (137-145)
--- NOTE | 2017-11-11 09:47 | PDOC PROGRESS REPORT ---
Subjective Progress Note for:: 11/11/17 Subjective:: Denies any complaints Reason For Visit: MALNUTRITION, ESOPHAGEAL CANCER, FALLS Physical Exam Vital Signs: Temp Pulse Resp BP Pulse Ox 97.5 F 107 H 16 119/51 L 94 11/11/17 07:23 11/11/17 07:23 11/11/17 07:23 11/11/17 07:23 11/11/17 07:23 Intake & Output 11/10/17 11/11/17 11/12/17 06:59 06:59 06:59 Intake Total 1475 2020 Output Total 1000 650 Balance 475 1370 Weight 58.9 kg 59 kg General appearance: PRESENT: no acute distress Eye exam: PRESENT: conjunctiva pink. ABSENT: scleral icterus Mouth exam: PRESENT: moist, tongue midline Neck exam: ABSENT: JVD Respiratory exam: PRESENT: rhonchi. ABSENT: rales, wheezes Cardiovascular exam: PRESENT: RRR. ABSENT: diastolic murmur, rubs, systolic murmur GI/Abdominal exam: PRESENT: normal bowel sounds, soft. ABSENT: distended, guarding, mass, organolmegaly, rebound, tenderness Extremities exam: ABSENT: calf tenderness, clubbing, pedal edema Neurological exam: PRESENT: oriented to person, oriented to place. ABSENT: oriented to time Psychiatric exam: PRESENT: appropriate affect Skin exam: PRESENT: dry, intact, warm. ABSENT: cyanosis, rash Results Laboratory Results: 11/11/17 04:33 11/11/17 04:33 11/11/17 11/11/17 04:33 04:33 WBC 16.3 H RBC 3.11 L Hgb 10.1 L Hct 28.7 L MCV 92 MCH 32.4 MCHC 35.2 RDW 13.1 Plt Count 204 Seg Neutrophils % 88.2 H Lymphocytes % 7.2 L Monocytes % 4.3 Eosinophils % 0.1 Basophils % 0.2 Absolute Neutrophils 14.4 H Absolute Lymphocytes 1.2 Absolute Monocytes 0.7 Absolute Eosinophils 0.0 Absolute Basophils 0.0 Sodium 138.9 Potassium 3.1 L Chloride 107 Carbon Dioxide 22 Anion Gap 10 BUN 14 Creatinine 0.65 Est GFR ( Amer) > 60 Est GFR (Non-Af Amer) > 60 Glucose 72 L Calcium 9.2 Impressions: Chest X-Ray 11/06/17 23:56 IMPRESSION: No acute cardiopulmonary findings. 2010 [employer]- All Rights Reserved Head CT 11/06/17 23:57 IMPRESSION: No acute findings. Assessment & Plan - Diagnosis (1) Leukocytosis Qualifiers: Leukocytosis type: unspecified Qualified Code(s): D72.829 - Elevated white blood cell count, unspecified Is this a current diagnosis for this admission?: Yes Plan: Is not clear whether this is secondary to infection or the underlying malignancy. He has been on empiric biotics. Cultures are negative so we will DC the antibiotics and monitor. Most likely is coming from his underlying cancer. (2) Esophageal cancer Qualifiers: Malignant neoplasm of esophagus location: lower third Qualified Code(s): C15.5 - Malignant neoplasm of lower third of esophagus Is this a current diagnosis for this admission?: Yes Plan: He is being followed by oncology. The patient's family is still uncertain as to whether they want to go hospice or with treatment. If they decide that they would want treatment would consider placing a PEG tube. (3) Atrial fibrillation Is this a current diagnosis for this admission?: Yes Plan: Patient is rate controlled (4) Chronic back pain Is this a current diagnosis for this admission?: Yes (5) Hypertension Qualifiers: Hypertension type: essential hypertension Qualified Code(s): I10 - Essential (primary) hypertension Is this a current diagnosis for this admission?: Yes Plan: Stable (6) Memory deficit Is this a current diagnosis for this admission?: Yes Plan: Patient appears to have some mild to moderate dementia. (7) Hypokalemia Is this a current diagnosis for this admission?: Yes Plan: We will replace and continue to monitor. (8) Do not resuscitate Is this a current diagnosis for this admission?: Yes - Time Time Spent with patient: 25-34 minutes - Inpatient Certification Medical Necessity: Need Close Monitoring Due to Risk of Patient Decompensation
[2017-11-11] MEDS: ASPIRIN 81 MG TABLET, CHEWABLE PO SCH (11:07)
[2017-11-11] MEDS: GUAIFENESIN 600 MG TABLET.SA PO SCH ×2 (11:10→22:57)
[2017-11-11] MEDS: MAGNESIUM OXIDE 400 MG TABLET PO SCH (11:10)
[2017-11-11] MEDS: METOPROLOL TARTRATE 25 MG TABLET PO SCH ×2 (11:11→22:57)
[2017-11-11] MEDS: CLOPIDOGREL BISULFATE 75 MG TABLET PO SCH (11:11)
[2017-11-11] MEDS: DOCUSATE SODIUM 100 MG CAPSULE PO SCH ×2 (11:11→17:52)
[2017-11-11] MEDS: POTASSI CL 20 MEQ/50 ML RIDER 20 MEQ/50 ML RTUPB IV SCH ×2 (11:18→13:45)
[2017-11-11] MEDS: POTASSIUM CHLORIDE 20 MEQ/15 ML UDCUP PO SCH ×2 (13:33→22:57)
[2017-11-11] MEDS: FINASTERIDE 5 MG TABLET PO SCH (13:33)
[2017-11-11] MEDS: TRAZODONE HCL 50 MG TABLET PO SCH (22:57)
[2017-11-12 05:49] LABS: HEMATOCRIT 31.3 % (37.9-51.0); HEMOGLOBIN 10.6 g/dL (13.5-17.0); MEAN CORPUSCULAR HEMOGLOBIN 31.6 pg (27.0-33.4); MEAN CORPUSCULAR VOLUME 93 fl (80-97); PLATELET COUNT 235 10^3/uL (150-450); RED BLOOD COUNT 3.37 10^6/uL (4.35-5.55); RED CELL DISTRIBUTION WIDTH 12.9 % (11.5-14.0); WHITE BLOOD COUNT 21.5 10^3/uL (4.0-10.5)
[2017-11-12 05:58] LABS: ANION GAP 12 (5-19); BLOOD UREA NITROGEN 16 mg/dL (7-20); CALCIUM 9.7 mg/dL (8.4-10.2); CARBON DIOXIDE 22 mmol/L (22-30); CHLORIDE 111 mmol/L (98-107); GLUCOSE 82 mg/dL (75-110); POTASSIUM 3.5 mmol/L (3.6-5.0); SODIUM 144.6 mmol/L (137-145)
[2017-11-12 06:23] LABS: ABSOLUTE LYMPHOCYTES# (MANUAL) 0.9 10^3/uL (0.5-4.7); ABSOLUTE MONOCYTES # (MANUAL) 0.9 10^3/uL (0.1-1.4); ABSOLUTE NEUTROPHILS# (MANUAL) 19.8 10^3/uL (1.7-8.2); BASOPHILS % (MANUAL) 0 % (0-2); EOSINOPHILS % (MANUAL) 0 % (0-6); LYMPHOCYTES % (MANUAL) 3 % (13-45); MONOCYTES % (MANUAL) 4 % (3-13); PLATELET COMMENT ADEQUATE; RBC MORPHOLOGY COMMENT NORMO-CYTIC/CHROMIC; SEGMENTED NEUTROPHILS % (MAN) 92 % (42-78); TOTAL CELLS COUNTED 100; TOXIC GRANULATION 2+
[2017-11-12] MEDS: LANSOPRAZOLE 30 MG TAB.RAP.DR PO SCH (07:48)
[2017-11-12] MEDS: HEPARIN SOD (PORCINE) 5,000 UNIT/ML 1 ML SYRINGE SUBCUT SCH ×3 (07:49→22:45)
[2017-11-12] MEDS: TRAMADOL HCL 50 MG TABLET PO PRN ×2 (08:29→16:40)
[2017-11-12] MEDS ORDERED: ONDANSETRON HCL INJ/PF 4 MG/2 ML SDV ONE ×2 (08:31→09:05)
[2017-11-12] MEDS ORDERED: ONDANSETRON HCL INJ/PF 4 MG/2 ML SDV IV PRN (09:03)
[2017-11-12] MEDS: POTASSIUM CHLORIDE 20 MEQ/15 ML UDCUP PO SCH (09:49)
[2017-11-12] MEDS: MAGNESIUM OXIDE 400 MG TABLET PO SCH (09:50)
[2017-11-12] MEDS: METOPROLOL TARTRATE 25 MG TABLET PO SCH (09:50)
[2017-11-12] MEDS: DOCUSATE SODIUM 100 MG CAPSULE PO SCH ×2 (09:50→17:38)
[2017-11-12] MEDS: FINASTERIDE 5 MG TABLET PO SCH (09:50)
[2017-11-12] MEDS: ASPIRIN 81 MG TABLET, CHEWABLE PO SCH (09:50)
[2017-11-12] MEDS: CLOPIDOGREL BISULFATE 75 MG TABLET PO SCH (09:50)
[2017-11-12] MEDS: GUAIFENESIN 600 MG TABLET.SA PO SCH (09:55)
--- NOTE | 2017-11-12 11:36 | PDOC PROGRESS REPORT ---
Subjective Progress Note for:: 11/12/17 Subjective:: Complains of a nonproductive cough this morning. Patient presented with a near syncopal episode and a productive cough when he first came to the hospital. Patient also was noted to have elevated leukocytosis and was started empirically on antibiotics. All of his cultures however have been negative. Patient was diagnosed with esophageal cancer at his last hospital visit. Patient had a recent PET scan which shows there to be positive lymph node involvement. Patient has been treated empirically with antibiotics because the leukocytosis although is not clear whether he has an active infection or whether the leukocytosis secondary to the malignancy. My suspicion is that he is having small amount of chronic aspiration of the most likely cause for his white blood cell count being elevated. Patient has been seen by oncology during this hospitalization and it is felt that he is not strong enough for chemotherapy. The patient's family is considering hospice will they are not entirely sure of that at this time. I have instructed him that this will be the best choice however if they decided they wanted treatment that a PEG tube should be considered. However I have told them that this would not be a good idea Reason For Visit: MALNUTRITION, ESOPHAGEAL CANCER, FALLS Physical Exam Vital Signs: Temp Pulse Resp BP Pulse Ox 98.6 F 114 H 22 H 146/73 H 100 11/12/17 08:17 11/12/17 08:17 11/12/17 08:17 11/12/17 08:17 11/12/17 08:17 Intake & Output 11/11/17 11/12/17 11/13/17 06:59 06:59 06:59 Intake Total 2020 1680 Output Total 650 550 Balance 1370 1130 Weight 59 kg 63 kg General appearance: PRESENT: no acute distress Eye exam: PRESENT: conjunctiva pink. ABSENT: scleral icterus Mouth exam: PRESENT: moist, tongue midline Neck exam: ABSENT: JVD Respiratory exam: PRESENT: rhonchi - Coarse rhonchi bilaterally.. ABSENT: rales , wheezes Cardiovascular exam: PRESENT: RRR. ABSENT: diastolic murmur, rubs, systolic murmur GI/Abdominal exam: PRESENT: normal bowel sounds, soft. ABSENT: distended, guarding, mass, organolmegaly, rebound, tenderness Extremities exam: ABSENT: calf tenderness, clubbing, pedal edema Neurological exam: PRESENT: awake, oriented to person, oriented to place. ABSENT: oriented to time, oriented to situation Psychiatric exam: PRESENT: appropriate affect Skin exam: PRESENT: dry, intact, warm. ABSENT: cyanosis, rash Results Laboratory Results: 11/12/17 05:13 11/12/17 05:13 11/12/17 11/12/17 05:13 05:13 WBC 21.5 H RBC 3.37 L Hgb 10.6 L Hct 31.3 L MCV 93 MCH 31.6 MCHC 34.0 RDW 12.9 Plt Count 235 Seg Neutrophils % Not Reportable Lymphocytes % Not Reportable Monocytes % Not Reportable Eosinophils % Not Reportable Basophils % Not Reportable Absolute Neutrophils Not Reportable Absolute Lymphocytes Not Reportable Absolute Monocytes Not Reportable Absolute Eosinophils Not Reportable Absolute Basophils Not Reportable Sodium 144.6 Potassium 3.5 L Chloride 111 H Carbon Dioxide 22 Anion Gap 12 BUN 16 Creatinine 0.70 Est GFR ( Amer) > 60 Est GFR (Non-Af Amer) > 60 Glucose 82 Calcium 9.7 11/07/17 05:43 Blood Blood Culture - Final NO GROWTH IN 5 DAYS Impressions: Chest X-Ray 11/06/17 23:56 IMPRESSION: No acute cardiopulmonary findings. 2010 [employer]- All Rights Reserved Head CT 11/06/17 23:57 IMPRESSION: No acute findings. Assessment & Plan - Diagnosis (1) Leukocytosis Qualifiers: Leukocytosis type: unspecified Qualified Code(s): D72.829 - Elevated white blood cell count, unspecified Is this a current diagnosis for this admission?: Yes Plan: Is not clear whether this is secondary to infection or the underlying malignancy. Antibiotics were stopped yesterday as cultures have been negative. The patient's white count has increased slightly since yesterday. Given the coarse rhonchi, I am concerned that he may be having some chronic aspiration. Will continue to hold antibiotics for now. (2) Esophageal cancer Qualifiers: Malignant neoplasm of esophagus location: lower third Qualified Code(s): C15.5 - Malignant neoplasm of lower third of esophagus Is this a current diagnosis for this admission?: Yes Plan: He is being followed by oncology. The patient's family is still uncertain as to whether they want to go hospice or with treatment. If they decide that they would want treatment would consider placing a PEG tube. (3) Atrial fibrillation Is this a current diagnosis for this admission?: Yes Plan: Patient is rate controlled (4) Chronic back pain Is this a current diagnosis for this admission?: Yes (5) Hypertension Qualifiers: Hypertension type: essential hypertension Qualified Code(s): I10 - Essential (primary) hypertension Is this a current diagnosis for this admission?: Yes Plan: Stable (6) Memory deficit Is this a current diagnosis for this admission?: Yes Plan: Patient appears to have some mild to moderate dementia. (7) Hypokalemia Is this a current diagnosis for this admission?: Yes Plan: We will replace and continue to monitor. (8) Do not resuscitate Is this a current diagnosis for this admission?: Yes - Time Time Spent with patient: 25-34 minutes - Inpatient Certification Medical Necessity: Need Close Monitoring Due to Risk of Patient Decompensation - Plan Summary Plan Summary: Patient will hopefully be able to go to rehab either tomorrow or Sunday.
[2017-11-12] MEDS: IPRATROPIUM/ALBUTEROL 0.5-2.5 MG/3 ML AMPUL NEB PRN (12:23)
[2017-11-12] MEDS: NORMAL SALINE 1000 ML 1,000 ML IV PRN (14:20)
[2017-11-12] MEDS ORDERED: BISACODYL 10 MG SUPP.RECT PR ONE (14:30)
[2017-11-12] MEDS: NYSTATIN TOPICAL POWDER 15 GM TP SCH (17:40)
[2017-11-12] MEDS ORDERED: DILTIAZEM HCL INJ 25 MG/5 ML VIAL ONE (17:44)
[2017-11-12] MEDS ORDERED: DILTIAZEM HCL INJ 25 MG/5 ML VIAL IV ONE ×2 (18:00→18:30)
[2017-11-12] MEDS: DILTIAZEM HCL/D5W 125 MG/125 ML RTUINJ IV PRN (19:57)
[2017-11-13] MEDS: IPRATROPIUM/ALBUTEROL 0.5-2.5 MG/3 ML AMPUL NEB PRN (02:51)
[2017-11-13] MEDS: NORMAL SALINE 1000 ML 1,000 ML IV PRN ×2 (04:37→17:36)
[2017-11-13 05:55] LABS: HEMATOCRIT 30.1 % (37.9-51.0); HEMOGLOBIN 10.4 g/dL (13.5-17.0); MEAN CORPUSCULAR HEMOGLOBIN 32.2 pg (27.0-33.4); MEAN CORPUSCULAR HGB CONC 34.7 g/dL (32.0-36.0); MEAN CORPUSCULAR VOLUME 93 fl (80-97); PLATELET COUNT 204 10^3/uL (150-450); RED BLOOD COUNT 3.24 10^6/uL (4.35-5.55); RED CELL DISTRIBUTION WIDTH 13.2 % (11.5-14.0); WHITE BLOOD COUNT 23.7 10^3/uL (4.0-10.5)
[2017-11-13] MEDS: LANSOPRAZOLE 30 MG TAB.RAP.DR PO SCH (06:13)
[2017-11-13 06:25] LABS: ANION GAP 6 (5-19); BLOOD UREA NITROGEN 14 mg/dL (7-20); CALCIUM 9.6 mg/dL (8.4-10.2); CARBON DIOXIDE 28 mmol/L (22-30); CHLORIDE 110 mmol/L (98-107); GLUCOSE 109 mg/dL (75-110); POTASSIUM 3.8 mmol/L (3.6-5.0); SODIUM 143.7 mmol/L (137-145)
[2017-11-13 06:39] LABS: ABSOLUTE LYMPHOCYTES# (MANUAL) 0.2 10^3/uL (0.5-4.7); ABSOLUTE MONOCYTES # (MANUAL) 0.2 10^3/uL (0.1-1.4); ABSOLUTE NEUTROPHILS# (MANUAL) 23.2 10^3/uL (1.7-8.2); BASOPHILS % (MANUAL) 0 % (0-2); EOSINOPHILS % (MANUAL) 0 % (0-6); LYMPHOCYTES % (MANUAL) 1 % (13-45); MONOCYTES % (MANUAL) 1 % (3-13); SEGMENTED NEUTROPHILS % (MAN) 98 % (42-78); TOTAL CELLS COUNTED 100
[2017-11-13 06:41] LABS: OVALOCYTES SLIGHT; POIKILOCYTOSIS SLIGHT; SCHISTOCYTES SLIGHT; TOXIC GRANULATION SLIGHT
[2017-11-13 06:42] LABS: PLATELET COMMENT ADEQUATE; TEAR DROP CELLS SLIGHT
[2017-11-13] MEDS: HEPARIN SOD (PORCINE) 5,000 UNIT/ML 1 ML SYRINGE SUBCUT SCH ×3 (06:57→22:20)
[2017-11-13] MEDS: DOCUSATE SODIUM 100 MG CAPSULE PO SCH ×2 (11:00→17:23)
[2017-11-13] MEDS: CLOPIDOGREL BISULFATE 75 MG TABLET PO SCH (11:00)
[2017-11-13] MEDS: GUAIFENESIN 600 MG TABLET.SA PO SCH ×2 (11:00→22:15)
[2017-11-13] MEDS: METOPROLOL TARTRATE 25 MG TABLET PO SCH ×2 (11:00→22:15)
[2017-11-13] MEDS: NYSTATIN TOPICAL POWDER 15 GM TP SCH ×2 (11:00→17:40)
[2017-11-13] MEDS: ASPIRIN 81 MG TABLET, CHEWABLE PO SCH (11:00)
[2017-11-13] MEDS: POTASSIUM CHLORIDE 20 MEQ/15 ML UDCUP PO SCH ×2 (11:00→22:15)
[2017-11-13] MEDS: FINASTERIDE 5 MG TABLET PO SCH (11:00)
[2017-11-13] MEDS: MAGNESIUM OXIDE 400 MG TABLET PO SCH (11:00)
[2017-11-13] MEDS ORDERED: DOCUSATE SODIUM 100 MG CAPSULE PO PRN (12:04)
[2017-11-13] MEDS ORDERED: HYDROMORPHONE HCL INJ/PF 2 MG/ML AMPULE IV PRN (13:25)
[2017-11-13] MEDS: HYDROCORTISONE SOD SUCCINATE INJ/PF 100 MG/2 ML SDV IV SCH ×2 (13:30→22:20)
--- NOTE | 2017-11-13 13:53 | PROGRESS NOTE E ---
Progress Note NAME: ADAM ZELAYA : 1940 AGE: 77Y DATE: 11/13/2017 ROOM: 317 SUBJECTIVE: The patient is currently lying in bed. He states that he feels okay today. He does admit to right-sided flank pain. The patient denies any vomiting. No shortness of breath. He admits to a strong cough, still producing some sputum. The patient has been afebrile. His blood pressures have been on the low side with the drip. Patient does not voice any specific concerns at this time. Did call and discuss the case with the patient's daughter whose is agreeable to family meeting this afternoon. REVIEW OF SYSTEMS: Rest of the review of systems is negative. MEDICATIONS: Have been reviewed. OBJECTIVE: GENERAL: The patient is a 77-year-old male who is awake, alert. He is frail, chronically ill appearing, and does not appear to be distressed. VITAL SIGNS: Temperature 98.0, pulse 92, respirations 24, blood pressure is 117/41, oxygen saturation is 99% on 1 L nasal cannula. SKIN: Warm and dry. No rash. He is not diaphoretic. HEENT: Pupils are reactive. Mucous membranes are moist. No evidence of JVP. CARDIOVASCULAR: Heart is irregularly irregular. No rub. CHEST: The patient has rhonchus breath sounds throughout both upper lung soria. Symmetrical, not labored at this time. ABDOMEN: Soft. Bowel sounds are present. He does have right upper quadrant tenderness which is not reproducible at this point. This is intermittent. EXTREMITIES: No clubbing, cyanosis, or edema. PSYCHIATRIC: Appropriate affect. Pleasant mood. A little confused. DIAGNOSTICS: Lab values are as follows: Hematology obtained on 11/13/2017: WBCs are 23.7, hemoglobin is 10.4, hematocrit is 30.1, platelet count is 204,000. Chemistry obtained on 11/13/2017: Sodium is 143, potassium 3.8, chloride is 110, carbon dioxide 28, BUN 14, creatinine 0.61, glucose 109, calcium is 9.6. Blood cultures obtained on 11/07/2017 reveal no growth. IMPRESSION AND PLAN: 1. ESOPHAGEAL CANCER APPEARS TO BE STAGE II GIVEN REGIONAL LYMPH NODE INVOLVEMENT. Patient has been followed by Oncology and recommendations were to proceed with hospice measures. Will have a meeting with the family this afternoon. 2. ATRIAL FIBRILLATION WITH RAPID VENTRICULAR RESPONSE. The patient's rate is poorly controlled, however, he is only mapping around 60 at this point. May have to discontinue drip. In the meantime, will start the patient on steroids as there may be some adrenal insufficiency causing this. 3. LEUKOCYTOSIS IS MOST LIKELY GOING TO WORSEN WITH STEROIDS, HOWEVER, THE PATIENT'S ANTIBIOTICS WERE STOPPED YESTERDAY BECAUSE THE CULTURES WERE NEGATIVE. Most likely this is due to a persistent aspiration. 4. CHRONIC BACK PAIN. Continue pain medications. 5. HYPERTENSION. Patient is actually hypotensive. Currently holding blood pressure medications. 6. MILD TO MODERATE DEMENTIA. Will continue supportive therapy. 7. HYPOKALEMIA. Will replete as necessary. DISPOSITION: The patient is a DO NOT RESUSCITATE/DO NOT INTUBATE. Pending patient's symptomatology and diagnostic findings, will reevaluate as needed. Time spent on this followup including assessment, plan, physical examination, patient education, and family discussion is 35 minutes. DICTATING PHYSICIAN: JUAN MOREIRA NP [id number] Y#: [id number] ID: [id number] JOB#: [id number] ACCT: [id number] cc: >
[2017-11-13] MEDS: DILTIAZEM HCL/D5W 125 MG/125 ML RTUINJ IV PRN (15:59)
--- NOTE | 2017-11-13 20:23 | Palliative Consultation Report ---
Consultation From:: MAMADOU KIMBLE - [facility] HPI: Palliative Care Consult visit 11/13/17 2:15 PM Appreciate consult request with this 77 year old man who has been diagnosed with esophageal cancer and has developed other comorbid conditions and problems , including aspiration risk from dyspagia. He also has atrial fib with RVR, leucocytosis, mild dementia and generalized weakness. Mr. Baron is awake in the bed with his at bedside at time of my visit. He says he is feeling better than a few days ago. He is alert and understands much of our conversation. Mrs. Baron says she needs hospice to help her at home when patient is discharged since home helaindu only comes for an hour a day. We discussed that hospice does not provide care more than that either. She said "they" told her hospice satys about 8-10 hours every day to help with care. I discussed with ehr the services hospice can offer but explained no hospice provides hours like that for home care. She was very disappointed. She says ther is no one at home but her to care for patient. Her daughters are both nurses in [place], but cannot come to [place] to help with their fathers care. Patient is no longer able to ambulate, even with his walker. He is very weak and dementia is a little worse since hospitalization. He is total care and his says she just cannot do it. SHe refuses to send hi to jail. SHe said they had a good experience at [facility] last year for rehab, so we talked about the possibility of [place] for care when he leaves hospital. She states she cannot afford to hire caregivers, and living with thier daughters would not be an option. We did talk briefly about the possibility of feeding tube placement vs allowing patient to eat.drink wheat he can with risk of aspiration and letting nature take it;s course with his esophageal cancer. She said the doctors are going to make that decision, but I encouraged her to t alk with her daughters about the pros and cons of this procedure as doctors will go with what family wants to do. We discussed thickened liquids and pleasure feedings with the risk of aspiration but not the problem of prolonging the inevitable with his cancer. She states their daughters are nurses, so they lynette understand the pros and cons of feeding tube. If feeding tube is not placed, patient may be appropriate for the hospice care center since he will not be able to eat much and with his other problems will most likely have a short life expectancy. At present, Mr. Baron denies pain except in his right lower rib cage. He is weak, oriented but a little confused with conversation. He is getting IV fluids and needs oxygen. Blood pressure has been low nad is being monitored frequently.. Onset: Last week Onset/Duration: Gradual Quality of Pain: Dull Severity: Mild Associated Symptoms: Slow to respond, Weakness Exacerbated by: Movement Relieved by: Remaining still Past Medical History(Consults) - General Information Source: Relative, [facility] Records Home Medications: Aspirin [Adult Low Dose Aspirin EC] 81 mg PO QAM 11/07/17 Clopidogrel Bisulfate [Plavix 75 mg Tablet] 75 mg PO QAM 11/07/17 Cyanocobalamin (Vitamin B-12) [Vitamin B-12 1000 mcg Tablet] 1,000 mcg PO QAM Docusate Sodium [Colace 100 mg Capsule] 100 mg PO DAILYP PRN 11/07/17 Finasteride [Proscar 5 mg Tablet] 5 mg PO QAM 11/07/17 Magnesium Oxide [Mag-Ox 400 mg Tablet] 400 mg PO BID 11/07/17 Metoprolol Tartrate [Lopressor 25 mg Tablet] 12.5 mg PO Q12 11/07/17 Pantoprazole Sodium [Protonix] 40 mg PO QAM 11/07/17 Tramadol HCl [Ultram 50 mg Tablet] 50 mg PO QAM 11/07/17 Trazodone HCl [Desyrel] 100 mg PO QAM 11/07/17 Allergies/Adverse Reactions: cyclobenzaprine HCl [From Flexeril] Allergy (Intermediate, Verified 05/06/15 08: 05) Hallucinations oxycodone HCl [From Percocet] Allergy (Intermediate, Verified 05/06/15 08:05) Hallucinations hydrocodone bitartrate [From Vicodin] Adverse Reaction (Severe, Verified 08:05) Hallucinations - Social History Lives with: Family Family History: Other - Unobtainable Parental Family History Reviewed: No Children Family History Reviewed: No Sibling(s) Family History Reviewed.: No Smoking Status: Former Smoker Number of Years Smokin Last Time Smoked: 1985 Frequency of Alcohol Use: Occasional Hx Recreational Drug Use: No Drugs: None Hx Prescription Drug Abuse: No - Past Medical History Cardiac Medical History: Reports: Hx Atrial Fibrillation, Hx Hypercholesterolemia, Hx Hypertension Denies: Hx Coronary Artery Disease, Hx Heart Attack Pulmonary Medical History: Denies: Hx Asthma, Hx Bronchitis, Hx COPD, Hx Pneumonia Neurological Medical History: Denies: Hx Cerebrovascular Accident, Hx Seizures Renal/ Medical History: Reports: Hx Benign Prostatic Hyperplasia. Denies: Hx Peritoneal Dialysis Malignancy Medical History: Reports Other Malignancy History Note: Esophageal cancer GI Medical History: Reports: Hx Gastroesophageal Reflux Disease Musculoskeltal Medical History: Reports Hx Arthritis Psychiatric Medical History: Reports: Hx Dementia, Hx Post Traumatic Stress Disorder Hematology: Denies: Anemia - Surgical History Past Surgical History: Reports: Hx Orthopedic Surgery - Left Achilles tendon repair. Status post bilateral ankle fractures., Other - Cataracts, spinal surgery, EGDs.. Denies: Hx Pacemaker Review of systems ROS unobtainable: due to mental statu Constitutional: Weakness Respiratory: Short of breath Gastrointestinal: Poor appetite Neurological/Psychological: Dementia Ojective:Exam Vital Signs: Temp Pulse Resp BP Pulse Ox 97.6 F 81 24 H 140/69 H 97 11/13/17 15:30 11/13/17 18:00 11/13/17 15:30 11/13/17 18:45 11/13/17 18:45 Intake & Output 11/12/17 11/13/17 11/14/17 06:59 06:59 06:59 Intake Total 1680 1760 960 Output Total 550 800 300 Balance 1130 960 660 Weight 63 kg 64.7 kg - General General Appearance: Alert, Anxious In distress: None - HEENT Head: Normocephalic Pupils: PERRLA Mucous membrane: Moist - Respiratory Respiratory Status: No respiratory distress - Cardiovascular Rhythm: Regular - Extremities Upper extremity: Normal inspection Arm: Normal - Neurological Cognition: Short term memory loss Orientation: Alert, Disoriented to person, Disoriented to place Speech: Normal - Psychological Associated symptoms: Normal affect, Anxious Objective-Diagnostic Laboratory: 11/13/17 05:37 11/13/17 05:37 11/13/17 11/13/17 05:37 05:37 WBC 23.7 H RBC 3.24 L Hgb 10.4 L Hct 30.1 L MCV 93 MCH 32.2 MCHC 34.7 RDW 13.2 Plt Count 204 Seg Neutrophils % Not Reportable Lymphocytes % Not Reportable Monocytes % Not Reportable Eosinophils % Not Reportable Basophils % Not Reportable Absolute Neutrophils Not Reportable Absolute Lymphocytes Not Reportable Absolute Monocytes Not Reportable Absolute Eosinophils Not Reportable Absolute Basophils Not Reportable Sodium 143.7 Potassium 3.8 Chloride 110 H Carbon Dioxide 28 Anion Gap 6 BUN 14 Creatinine 0.61 Est GFR ( Amer) > 60 Est GFR (Non-Af Amer) > 60 Glucose 109 Calcium 9.6 Plan and Recommendation Plan and Recommendation: will speak with her daughters and discuss feeding tube. SHe will speak with doctor tomorrow and make final deision about care and comfort measures vs more aggressive treatments Discussed hospice services, SNF, paid caregivers, etc as options for care giving. does not want to be caring for patient at home alone all of the time. Many considerations for her to discuss with her family. Patient denies pain and no other symptoms to address at present. Will follow. - Time Spent with Patient Time spent with patient: 15 to 30 Minutes Time: 50 min Greater then 50% spent on Counseling & Coordination of Care: 30min
[2017-11-14] MEDS: IPRATROPIUM/ALBUTEROL 0.5-2.5 MG/3 ML AMPUL NEB PRN ×2 (00:30→11:20)
[2017-11-14] MEDS ORDERED: LANSOPRAZOLE 30 MG TAB.RAP.DR PO SCH (06:00)
[2017-11-14] MEDS: HEPARIN SOD (PORCINE) 5,000 UNIT/ML 1 ML SYRINGE SUBCUT SCH (06:06)
[2017-11-14] MEDS: HYDROCORTISONE SOD SUCCINATE INJ/PF 100 MG/2 ML SDV IV SCH (06:06)
[2017-11-14] MEDS: NORMAL SALINE 1000 ML 1,000 ML IV PRN (07:58)
[2017-11-14] MEDS ORDERED: CLOPIDOGREL BISULFATE 75 MG TABLET PO SCH (08:00)
[2017-11-14] MEDS ORDERED: ASPIRIN 81 MG TABLET, ENT COATED PO SCH (08:00)
[2017-11-14] MEDS ORDERED: TRAZODONE HCL 50 MG TABLET PO SCH ×2 (08:00→22:00)
[2017-11-14] MEDS ORDERED: (PENDING PHARMACY ID) (Trazodone Hcl [Desyrel] 100 MG) PO SCH (08:00)
[2017-11-14] MEDS ORDERED: CYANOCOBALAMIN (VITAMIN B-12) 1,000 MCG TABLET PO SCH (08:00)
[2017-11-14] MEDS ORDERED: FINASTERIDE 5 MG TABLET PO SCH (08:00)
[2017-11-14] MEDS ORDERED: DILTIAZEM HCL 30 MG TABLET PO ONE (10:00)
[2017-11-14] MEDS: METOPROLOL TARTRATE 25 MG TABLET PO SCH (11:21)
[2017-11-14] MEDS: MAGNESIUM OXIDE 400 MG TABLET PO SCH (11:40)
[2017-11-14] MEDS: NYSTATIN TOPICAL POWDER 15 GM TP SCH (11:40)
[2017-11-14] MEDS: DOCUSATE SODIUM 100 MG CAPSULE PO SCH (11:40)
[2017-11-14] MEDS: POTASSIUM CHLORIDE 20 MEQ/15 ML UDCUP PO SCH (11:40)
[2017-11-14 11:59] VITALS: BP 133/62
[2017-11-14] MEDS ORDERED: DILTIAZEM HCL 30 MG TABLET PO SCH (12:00)
--- NOTE | 2017-11-14 15:33 | TRANSFER SUMMARY E ---
Transfer Summary NAME: ADAM ZELAYA : 1940 AGE: 77Y ADMITTED: 11/07/2017 TRANSFERRED: 11/14/2017 RECEIVING FACILITY: [facility]. CODE STATUS: DO NOT RESUSCITATE; DO NOT INTUBATE. COMFORT CARE MEASURES ONLY. CONSULTING ONCOLOGIST: Jessika Kang MD DISCHARGE DIAGNOSES: 1. ESOPHAGEAL CANCER. 2. ATRIAL FIBRILLATION; RAPID VENTRICULAR RESPONSE. 3. CHRONIC LOWER BACK PAIN. 4. VASCULAR DEMENTIA. 5. HYPERTENSION. 6. HYPOKALEMIA. 7. HYPONATREMIA WHICH IS MOST SIADH DUE TO UNDERLYING MALIGNANCY. 8. PERSISTENT ASPIRATION. DIAGNOSTICS: Lab values are as follows: Hematology obtained on 11/13/2017: WBCs are 23.7, hemoglobin is 10.4, hematocrit is 30.1, platelet count is 198,000. Chemistry obtained on 11/13/2017: Sodium is 143, potassium 3.8, chloride is 110, carbon dioxide 28, BUN 14, creatinine 0.61, glucose 109, calcium is 9.6. Bilirubin is 0.5, AST 19, ALT is 25, alkaline phos 102, CK is up at 20, CK-MB is 22, troponin 0.012, total protein 6.0, albumin 2.9. Urinalysis obtained on 11/07/2017: Color, yellow; appearance, slightly cloudy; pH is 5.0; specific gravity is 1.019. Protein negative, glucose negative, ketones negative, occult blood negative, nitrite negative, bilirubin negative, urobilinogen is negative, leukocyte esterase is negative, WBCs 3, RBCs 2, casts 8, mucus 4, ascorbic acid is 40. Blood cultures obtained 11/07/2017 reveal no growth. Chest x-ray obtained on 11/12/[address] obtainer on 11/12/2017 reveals no acute findings. EKG obtained on 11/06/2017 reveals tachycardia. DIET: As tolerated. ACTIVITY: As tolerated. HISTORY OF PRESENT ILLNESS: The patient is a 77-year-old male with a past medical history of esophageal cancer. The patient presented to the emergency department with a chief complaint of weakness and presyncope. The patient also is noted to have a productive cough. The patient does have a significant dementia and was unable to provide any history. The patient's daughter's who are nurses were able to provide history. While in the emergency department, the patient was found to have leukocytosis and concern for infection related to the esophageal mass. He was added empirical antibiotics, was referred to the hospitalist for admission and management. HOSPITAL COURSE: Patient was admitted to [facility]. The patient was placed on broad spectrum antibiotic coverage and the patient continued to have ever-increasing white count. The patient was found to be profoundly hyponatremic during previous admission which is still persistent. The patient was hydrated. Eventually, the patient did have rapid ventricular response and did require a Cardizem drip. The patient was felt to be adrenal insufficient given his chronic illness and was started on hydrocortisone, which the patient did have significant improvement of blood pressures and was able to increase the Cardizem drip and subsequently discontinue this. The patient was transitioned over to oral Cardizem. Discussion was had with the family regarding supplemental feedings given that the patient appears to be persistently aspirating. The family has had much discussion regarding this and the feel that given that the patient is aspirating his own secretions and given his overall poor prognosis and current state of health, that proceeding with treatment would be futile and would like to proceed with an inpatient Hospice environment. The patient has been seen by Hospice then will be received at the Hospice House. Time spent on this transfer summary including physical examination, family meeting, and review of records and specialty collaboration is 60 minutes. Time spent on advanced care planning in greater than 30 minutes. DICTATING PHYSICIAN: JUAN MOREIRA NP [id number] PHY#: [id number] ID: [id number] JOB#: [id number] ACCT: [id number] cc:JUAN MOREIRA NP > MTDD
== END 2017-11-14 14:39 | disposition hospice, inpatient (51) | DRG 375 ==
LOC: ER 23:11 → EH 11-07 03:58 → 4S 11-07 06:16 → 4N 11-11 17:10 → 3W 11-12 18:36
PROVIDERS: ADMIT Internal Medicine; ATTEND Internal Medicine
DX: C15.5 Malignant neoplasm of lower third of esophagus (principal); E87.1 Hypo-osmolality and hyponatremia; C77.9 Secondary and unspecified malignant neoplasm of lymph node, unspecified; E44.0 Moderate protein-calorie malnutrition; E27.40 Unspecified adrenocortical insufficiency; R55 Syncope and collapse; D72.829 Elevated white blood cell count, unspecified; Z51.5 Encounter for palliative care; I48.2 Chronic atrial fibrillation; I10 Essential (primary) hypertension; N40.0 Benign prostatic hyperplasia without lower urinary tract symptoms; K21.9 Gastro-esophageal reflux disease without esophagitis; M19.90 Unspecified osteoarthritis, unspecified site; F43.10 Post-traumatic stress disorder, unspecified; G89.29 Other chronic pain; M54.5 Low back pain; J44.9 Chronic obstructive pulmonary disease, unspecified; F03.90 Unspecified dementia, unspecified severity, without behavioral disturbance, psychotic disturbance, mood disturbance, and anxiety; R05 Cough; Z66 Do not resuscitate; E78.5 Hyperlipidemia, unspecified; Z91.81 History of falling; Z87.891 Personal history of nicotine dependence; Z79.02 Long term (current) use of antithrombotics/antiplatelets; Z79.82 Long term (current) use of aspirin; Z79.899 Other long term (current) drug therapy; Z88.6 Allergy status to analgesic agent; Z87.81 Personal history of (healed) traumatic fracture; Z88.8 Allergy status to other drugs, medicaments and biological substances; Z80.9 Family history of malignant neoplasm, unspecified; Z68.21 Body mass index [BMI] 21.0-21.9, adult
CPT/HCPCS: 36415; 51701; 70450; 71010; 78815; 80048; 80053; 81001; 82550; 82553; 82962; 84484; 85025; 87040; 93005; 93010; 96360; 99285; A9552; G8996-GN; G8997-GN; G8998-GN; J0295; J1644; J1720; J1956; J2405; J3480; J3490; J7030; J7620